=== PATIENT | female | born 1990 | race Caucasian/White ===

== ENCOUNTER → 2017-07-21 09:55 | Outpatient (REF) | payer SELFPAY ==
[2017-07-21 11:08] LABS: COTININE Drug Screen Negative (<200 ng/mL)
[2017-07-21 11:11] LABS: Color, Urine Yellow (Yellow); Glucose, Dipstick Normal (Normal); Ketone-Dipstick Negative (Negative); Leukocyte Esterase-Dipstick Negative /ul (Negative); Nitrite-Dipstick Negative (Negative); Occult Blood-Urine Negative /ul (Negative); Protein-Dipstick Negative (Negative); Specific Gravity, Urine 1.025 (1.002-1.030); Urine Bilirubin Dipstick Negative (Negative); Urine Clarity Sl. Cloudy (Clear); Urine Urobilinogen Normal (Normal)
[2017-07-21 11:14] LABS: Absolute Lymphocyte Count 4.26 X10^3/ul (0.83-4.51); Absolute Neutrophil Count 2.8 X10^3/uL (2.0-7.7); Basophil# 0.13 X10^3/uL; Basophil% 1.6 % (0-1); Eosinophil# 0.18 X10^3/uL; Eosinophils% 2.2 % (0-5); Hematocrit 38.5 % (37-47); Hemoglobin 12.7 g/dl (12.0-15.0); Lymphocyte # 4.26 X10^3/ul; Lymphocyte % 53.1 % (19-41); Mean Corpuscular Hgb 29.2 pg (27.0-32.0); Mean Corpuscular Volume 88.5 fL (81-99); Mean Platelet Vol. 9.6 fl (6.2-12.0); Monocyte# 0.65 X10^3/uL; Monocyte% 8.1 % (0-10); Neutrophil # 2.79 X10^3/uL (2.7-7.7); Neutrophil % 34.9 % (47-70); Platelet Count 202 K/mm3 (150-450); RBC Distribution Width CV 14.6 % (11.6-14.6); RBC Distribution Width SD 47.5 fl (35.1-43.9); Red Blood Count 4.35 M/mm3 (4.2-5.4)
[2017-07-21 11:19] LABS: ALB/GLOB Ratio 0.8 RATIO (0.9-2.4); AST(SGOT) 159 U/L (15-37); Alanine Aminotransfer ALT/SGPT 197 U/L (13-56); Albumin, Serum 3.3 g/dL (3.2-5.0); Alkaline Phosphatase 96 U/L (45-117); Anion Gap 7 (5-15); BUN 14 mg/dL (7-18); BUN/Creat Ratio 19.5 RATIO (10-20); Calcium,Total 8.8 mg/dL (8.5-10.1); Chloride 102 mmol/L (98-107); Cholesterol 224 mg/dL (200); Creatinine, Serum 0.72 mg/dL (0.55-1.02); EST Glomerular Filtration Rate 105 mL/min (>60); Est Glom Filt Rate - Afr Amer 128 mL/min (>60); Globulin 3.9 g/dL (2.2-4.2); Glucose 81 mg/dL (74-106); High Density Lipoprotein 86 mg/dL; LDH 362 U/L (84-246); Phosphorus 3.7 mg/dL (2.5-4.9); Potassium 4.1 mmol/L (3.5-5.1); Protein, Total 7.2 g/dL (6.4-8.2); Sodium Level 138 mmol/L (136-145); Triglycerides 154 mg/dL; Uric Acid 4.1 mg/dL (2.6-6.0); Very Low Density Lipoprotein 31 mg/dL (5-40)
[2017-07-23 14:49] LABS: Pathologist Review Reviewed
== END ==
LOC: LAB 09:55
PROVIDERS: Family Provider Family Medicine; PCP Family Medicine
DX: R69 Illness, unspecified (principal)
CPT/HCPCS: 80307

== ENCOUNTER → 2017-07-24 09:15 | Outpatient (CLI) | payer OTHER, SELFPAY ==
--- NOTE | 2017-07-24 09:19 | US_ITS ---
STUDY: ABDOMINAL ULTRASOUND - RIGHT UPPER QUADRANT REASON FOR VISIT: Female, 27 years old. Abnormal liver function tests. TECHNIQUE: Ultrasound evaluation of the right upper quadrant was performed with real-time and static eugene-scale imaging. TECHNICAL QUALITY: Adequate. COMPARISON: None. FINDINGS: Liver: The liver measures 13.6 cm. There is normal echogenicity of the liver. The bile ducts are within normal limits. There is hepatic color flow. The direction of portal flow is hepatopetal. There is no demonstrated mass lesion. Gallbladder: Normal distended gallbladder. The gallbladder wall measures 3.0 mm. There is a negative sonographic Gan's sign. There is no pericholecystic fluid. There are no gallstones. Common Bile Duct (C.B.D.): The common bile duct measures 2.0 mm. Pancreas: Normal size of the head, body and tail of the pancreas. There is normal echogenicity of the pancreas. There is no demonstrated pancreatic mass or cyst. Right Kidney: Normal size of the right kidney. The right kidney measures 12.3 cm x 5.5 cm x 4.1 cm. Normal renal cortex. The right cortex measures 1.2 cm. There is no demonstrated renal mass or cyst. There is no right hydronephrosis. US/Liver IMPRESSION: Normal right upper quadrant ultrasound examination. Electronically Signed: Pratik Berumen MD at 10:26 EST Tel [phone], Service support ,
[2017-07-25 09:55] LABS: HEPATITIS B SURFACE AG Negative (Negative); Hepatitis A AB, Total Positive (Negative); Hepatitis A IgM Antibody Negative (Negative); Hepatitis B Core AB IgM Negative (Negative); Hepatitis B Core Ab Total Negative (Negative); Hepatitis C Ab 0.9 s/co ratio (0.0-0.9)
[2017-07-25 15:57] LABS: Hep B Surface Antibodies Non Reactive (.)
== END ==
PROVIDERS: Family Provider Family Medicine; PCP Family Medicine; Visit Provider Obstetrics & Gynecology
DX: R74.8 Abnormal levels of other serum enzymes (principal)
CPT/HCPCS: 36415; 76705; 86704; 86705; 86706; 86708; 86709; 86803; 87340

== ENCOUNTER → 2017-07-30 17:14 | Outpatient (CLI) | payer OTHER, SELFPAY ==
[2017-07-30 22:33] LABS: Chlamydia Trachomatis by PCR Negative (Negative); Neisserai gonorrhoeae by PCR Negative (Negative); Probe Check PASS; Sample Adequacy Control PASS; Specimen Processing Control PASS
[2017-08-07 10:00] LABS: HPV Reflexed? NOT INDICATED
== END ==
LOC: LAB 10:30 → LABSPEC 17:15
PROVIDERS: Family Provider Family Medicine; PCP Family Medicine; Visit Provider Obstetrics & Gynecology
DX: Z12.4 Encounter for screening for malignant neoplasm of cervix (principal); Z11.3 Encounter for screening for infections with a predominantly sexual mode of transmission
CPT/HCPCS: 87491; 87591; 88175; G0145

== ENCOUNTER → 2017-07-31 11:26 | Outpatient (CLI) | payer OTHER, SELFPAY ==
[2017-08-02 03:06] LABS: HCV Quant. RNA PCR HCV Not Detected IU/mL (.)
[2017-08-02 08:53] LABS: HEPATITIS B SURFACE AG Negative (Negative); HSV 1 IgG 0.95 index (0.00-0.90); HSV 2 IgG < 0.91 index (0.00-0.90)
[2017-08-07 02:54] LABS: Rapid Plasmin Reagin (RPR) NONREACTIVE (NONREACTIVE)
== END ==
PROVIDERS: Family Provider Family Medicine; PCP Family Medicine; Visit Provider Obstetrics & Gynecology
DX: Z11.3 Encounter for screening for infections with a predominantly sexual mode of transmission (principal)
CPT/HCPCS: 36415; 86592; 86695; 86696; 87340; 87522

== ENCOUNTER 2018-04-27 11:15 | Outpatient (RCR) | payer OTHER, SELFPAY ==
--- NOTE | 2018-05-25 16:33 | DS.PCM_ITS ---
Massage Therapy Discharge Summary: Initial Evaluation: 09/01/2017 Diagnosis: Back pain No. of Visits: Date of last visit: 04/27/2018 Goals: Decreased pain and muscle tension This patient is being discharged from our care at the [facility]. Thank you, Ana Savage LMT
== END 2018-04-27 19:00 | disposition home or self-care (01) ==
LOC: MASS 11:15
PROVIDERS: Family Provider Family Medicine; PCP Family Medicine; Visit Provider Family Medicine
DX: M54.9 Dorsalgia, unspecified (principal)
CPT/HCPCS: 97124

== ENCOUNTER → 2018-08-02 14:19 | Outpatient (CLI) | payer OTHER, SELFPAY ==
[2018-08-02 13:46] VITALS: BMI 24.0
[2018-08-02 15:53] LABS: HIV - WCH Non-Reactive (Nonreactive)
[2018-08-02 20:04] LABS: Chlamydia Trachomatis by PCR Negative (Negative); Neisserai gonorrhoeae by PCR Negative (Negative)
[2018-08-02 20:05] LABS: Probe Check PASS; Sample Adequacy Control PASS; Specimen Processing Control PASS
[2018-08-04 03:06] LABS: HCV Quant. RNA PCR HCV Not Detected IU/mL (.)
[2018-08-04 12:19] LABS: HEPATITIS B SURFACE AG Negative (Negative); HSV 1 IgG < 0.91 index (0.00-0.90); HSV 2 IgG < 0.91 index (0.00-0.90)
[2018-08-06 03:11] LABS: Rapid Plasmin Reagin (RPR) NONREACTIVE (NONREACTIVE)
== END ==
PROVIDERS: Family Provider Family Medicine; PCP Family Medicine; Referring Provider Obstetrics & Gynecology; Visit Provider Obstetrics & Gynecology
DX: Z11.3 Encounter for screening for infections with a predominantly sexual mode of transmission (principal)
CPT/HCPCS: 36415; 86592; 86695; 86696; 86703; 87340; 87491; 87522; 87591

== ENCOUNTER 2019-04-21 10:15 | Outpatient (RCR) | payer OTHER, SELFPAY ==
--- NOTE | 2018-06-21 15:08 | MASS.EVAL ---
Massage Therapy Evaluation: Initial Evaluation Date: 06/21/2018 SUBJECTIVE: Lexus is a 27 year old female who was referred to the [facility] facility for a massotherapy evaluation by Dr. Baker with the diagnosis of back pain. Lexus presents today with the symptoms of tension and pain in her mid-low back. She also complains of burning between her scapulae and neck stiffness. Lexus reports having a non-remarkable medical history. She reports having minimal change in her symptoms after stretching and strengthening. OBJECTIVE: Upon observation Lexus has poor posture in sitting and standing. After examination and palpation I found Lexus to have very high muscle tension with tenderness and myofascial restrictions in her sub occipitals, levator scapulae, trapezius, rhomboids, scalenes, and thoracic paraspinals. Her QL?s, lumbar paraspinals, glute medius and minimus all were very tight with fascial restrictions, tender points and trigger points. The first treatment consisted of a one hour massage to her upper body with myofascial release, muscle stripping, trigger point compression techniques, and cervical manual traction. ASSESSMENT: I feel that Lexus is a good candidate for massotherapy at this time. She had a favorable response to the first treatment with reduction in her muscle aches, pain and tension. She also had improvement in her cervical flexibility and low back flexibility. PLAN: The plan of care was reviewed with the patient. The patient is to be seen on an as needed basis for a total of ten sessions with the recommendation of once every month for a one hour treatment.
--- NOTE | 2019-04-21 12:59 | MASS.DISCH ---
Massage Therapy Discharge Summary: Discharge Date: 04/21/2019 Lexus was seen for a massotherapy evaluation on 06/21/2018 with the diagnosis of back pain. She was treated with ten sessions of massage therapy consisting of deep pressure soft tissue techniques, myofascial release and trigger point compression to her cervical, thoracic, lower back, upper extremities, hips and lower extremities. Lexus responded well to the therapy by reporting decreased tension and pain throughout her head, neck, shoulders, lower back and hips. Her goals for therapy were met throughout the treatment sessions. At this time this patient is being discharged from our care at [facility] facility.
== END 2019-04-21 19:00 | disposition home or self-care (01) ==
LOC: MASS 10:15
PROVIDERS: Family Provider Family Medicine; PCP Family Medicine; Referring Provider Family Medicine; Visit Provider Family Medicine
DX: M54.9 Dorsalgia, unspecified (principal)
CPT/HCPCS: 97124

== ENCOUNTER → 2019-06-30 10:07 | Outpatient (CLI) | payer OTHER, SELFPAY ==
[2019-06-30 10:03] VITALS: BMI 23.6
[2019-06-30 10:33] LABS: Absolute Lymphocyte Count 1.55 X10^3/uL (0.83-4.51); Basophil# 0.02 X10^3/uL; Basophil% 0.3 % (0-1); Eosinophil# 0.03 X10^3/uL; Eosinophils% 0.5 % (0-5); Hematocrit 40.1 % (37-47); Hemoglobin 13.3 g/dL (12.0-15.0); Lymphocyte # 1.55 X10^3/ul (4.0); Lymphocyte % 25.4 % (19-41); Mean Corp Hgb Conc 33.2 g/dL (32-36); Mean Corpuscular Hgb 28.5 pg (27.0-32.0); Mean Corpuscular Volume 85.9 fL (81-99); Mean Platelet Vol. 9.9 fl (6.2-12.0); Monocyte# 0.52 X10^3/uL; Monocyte% 8.5 % (0-10); NRBC Flagged by Analyzer 0 % (0-5); Neutrophil # 3.95 X10^3/uL (2.7-7.7); Neutrophil % 64.8 % (47-70); Platelet Count 207 K/mm3 (150-450); RBC Distribution Width CV 13.1 % (11.6-14.6); RBC Distribution Width SD 40.9 fl (35.1-43.9); Red Blood Count 4.67 M/mm3 (4.2-5.4); White Blood Count 6.1 K/mm3 (4.4-11.0)
[2019-06-30 11:39] LABS: HIV - WCH Non-Reactive (Nonreactive); Hepatitis B Surface Antigen Non-Reactive (Nonreactive); Hepatitis C Antibody Non-Reactive (Nonreactive); Rubella IgG 179.8 IU/mL
[2019-06-30 13:41] LABS: Amphetamine Urine VISTA NEGATIVE (<1000 ng/mL); Barbiturate Urine VISTA NEGATIVE (< 200 ng/mL); Benzodiazepine Urine VISTA NEGATIVE (< 200 ng/mL); Cocaine Urine VISTA NEGATIVE (< 300 ng/mL); Ecstacy Urine VISTA NEGATIVE (< 500 ng/mL); Methadone Urine VISTA NEGATIVE (< 300 ng/mL); PCP Urine VISTA NEGATIVE (< 25 ng/mL); THC Urine VISTA NEGATIVE (< 50 ng/mL); Vista UDS pH Range 6
[2019-06-30 16:22] LABS: Chlamydia Trachomatis by PCR Negative (Negative); Neisserai gonorrhoeae by PCR Negative (Negative); Probe Check PASS; Sample Adequacy Control PASS; Specimen Processing Control PASS
[2019-07-07 03:15] LABS: Rapid Plasmin Reagin (RPR) NONREACTIVE (NONREACTIVE)
== END ==
PROVIDERS: PCP Family Medicine; Referring Provider Obstetrics & Gynecology; Visit Provider Obstetrics & Gynecology
DX: Z34.00 Encounter for supervision of normal first pregnancy, unspecified trimester (principal)
CPT/HCPCS: 36415; 80307; 85025; 86592; 86703; 86762; 86803; 86850; 86900; 86901; 87086; 87340; 87491; 87591

== ENCOUNTER → 2019-09-06 | Outpatient (CLI) | payer OTHER, SELFPAY ==
[2019-07-29 14:42] VITALS: BMI 23.6
[2019-08-26 09:57] VITALS: BMI 23.6
--- NOTE | 2019-09-06 07:56 | US_ITS ---
STUDY: SECOND AND THIRD TRIMESTER OBSTETRICAL ULTRASOUND REASON FOR EXAM: Female, 29 years old ANATOMY LMP: April 24, 2019. TECHNIQUE: Transabdominal TECHNICAL QUALITY: Adequate. PRIOR ULTRASOUND: None. FINDINGS: There is a single intrauterine fetus. The fetus is in a breech presentation. There is demonstrated cardiac activity with a heart rate of 160 bpm. There is a normal amniotic fluid volume. The largest amniotic fluid pocket measures 4.1 cm x 6.9 cm. The amniotic fluid index (CHANDRA) is within normal limits. The placenta is anterior in location and is not low lying. There are Grade 1 placental changes. The cervix measures 5.8 cm in length. The adnexal regions are not visualized. BIOMETRY: BPD: 4.33 cm: 19 weeks, 0 days HC: 16.42 cm: 19 weeks, 1 days AC: 14.12 cm: 19 weeks, 3 days FL: 3.05 cm: 19 weeks, 3 days CI: 77.5% FL/BPD: 70.5% FL/HC: FL/AC: 21.6% HC/AC: 1.16 age by current US: 19 weeks, 1 days. LEONARDA by current US: January 30, 2020. Estimated weight: 22 grams, +/- 43 grams, 53 %. Age by LMP: 19 weeks, 2 days. LEONARDA by LMP: January 29, 2020. ANATOMY: Gender: Female Cranium: Normal lateral ventricles. Normal choroid plexus. Normal cerebellum. Normal cisterna magna. Normal face, nose and lips. Chest: Normal 4-chamber heart. Abdomen/Pelvis: Normal diaphragm. Normal stomach. Normal abdominal wall. Normal cord insertion. Normal 3 vessel cord. Normal kidneys. Normal bladder. Spine: Normal cervical spine. Normal thoracic spine. Normal lumbar spine. Normal sacrum. Extremities: Normal bilateral upper extremities. Normal bilateral lower extremities. US/OB Anatomy Scan IMPRESSION: Single live intrauterine gestation with a mean gestational age of 19 weeks and 1 day. Electronically Signed: Pratik Berumen, at 13:08 EDT , Service support ,
== END | disposition home or self-care (01) ==
LOC: OPUS 07:56
PROVIDERS: PCP Family Medicine; Referring Provider Obstetrics & Gynecology; Visit Provider Obstetrics & Gynecology
DX: Z36.89 Encounter for other specified antenatal screening (principal)
CPT/HCPCS: 76805

== ENCOUNTER → 2019-10-27 12:52 | Outpatient (CLI) | payer OTHER, SELFPAY ==
[2019-10-14 10:18] VITALS: BMI 23.6
[2019-10-27 13:28] LABS: Absolute Lymphocyte Count 2.04 X10^3/uL (0.83-4.51); Absolute Neutrophil Count 5.4 X10^3/uL (2.0-7.7); Basophil# 0.04 X10^3/uL; Basophil% 0.5 % (0-1); Eosinophil# 0.08 X10^3/uL; Eosinophils% 0.9 % (0-5); Hematocrit 36.6 % (37-47); Hemoglobin 11.8 g/dL (12.0-15.0); Lymphocyte # 2.04 X10^3/ul (4.0); Lymphocyte % 24.1 % (19-41); Mean Corp Hgb Conc 32.2 g/dL (32-36); Mean Corpuscular Hgb 29.4 pg (27.0-32.0); Mean Corpuscular Volume 91.3 fL (81-99); Mean Platelet Vol. 9.8 fl (6.2-12.0); Monocyte% 9.5 % (0-10); NRBC Flagged by Analyzer 0 % (0-5); Neutrophil # 5.42 X10^3/uL (2.7-7.7); Neutrophil % 64.2 % (47-70); Platelet Count 196 K/mm3 (150-450); RBC Distribution Width CV 12.8 % (11.6-14.6); RBC Distribution Width SD 42.5 fl (35.1-43.9); Red Blood Count 4.01 M/mm3 (4.2-5.4); White Blood Count 8.5 K/mm3 (4.4-11.0)
[2019-10-27 13:42] LABS: Glucose Challenge Gest 1H 50g 84 mg/dL (70-140)
== END ==
PROVIDERS: PCP Family Medicine; Referring Provider Obstetrics & Gynecology; Visit Provider Obstetrics & Gynecology
DX: Z34.00 Encounter for supervision of normal first pregnancy, unspecified trimester (principal)
CPT/HCPCS: 36415; 82950; 85025; 86850; 86900; 86901

== ENCOUNTER → 2019-12-06 | Outpatient (CLI) | payer OTHER, SELFPAY ==
[2019-12-06 12:39] VITALS: BMI 23.6
--- NOTE | 2019-12-06 13:23 | RAD_ITS ---
STUDY: X-RAY - LEFT ANKLE REASON FOR EXAM: Follow-up fracture status post injury. TECHNIQUE: 3 view(s) of the ankle. COMPARISON: None. FINDINGS: There is a minimally displaced fracture of the distal fibula. Normal tibiotalar articulation and ankle mortise. Normal visualized talus and calcaneus. The visualized subtalar, talonavicular, calcaneocuboid and tarsal articulations are normal. There is an overlying cast. RAD/Ankle min 3 Views IMPRESSION: Distal fibular fracture. Electronically Signed: Carlos Shields MD at 14:15 EDT Tel , Service support ,
== END | disposition home or self-care (01) ==
LOC: HPRAD 13:23
PROVIDERS: PCP Family Medicine; Referring Provider Orthopaedic Surgery; Visit Provider Orthopaedic Surgery
DX: S82.832A Other fracture of upper and lower end of left fibula, initial encounter for closed fracture (principal)
CPT/HCPCS: 73610

== ENCOUNTER → 2019-12-15 | Outpatient (CLI) | payer OTHER, SELFPAY ==
[2019-12-06 12:39] VITALS: BMI 23.6
--- NOTE | 2019-12-15 14:56 | RAD_ITS ---
STUDY: X-RAY - LEFT ANKLE REASON FOR EXAM: Female, 29 years old. INJURY, LEFT ANKLE PAIN TECHNIQUE: 3 view(s) of the ankle. COMPARISON: 12/06/2019 FINDINGS: No change in the nondisplaced oblique fracture of the distal left fibula at the level tibial plafond. Normal medial and lateral malleoli. Normal tibiotalar articulation and ankle mortise. Normal visualized talus and calcaneus. The visualized subtalar, talonavicular, calcaneocuboid and tarsal articulations are normal. Fiberglas cast a posterior soft tissue and bony detail. RAD/Ankle min 3 Views IMPRESSION: No change in nondisplaced oblique fracture the distal fibula at the level tibial plafond. Electronically Signed: Juni Izaguirre MD at 7:44 EDT Tel , Service support ,
== END | disposition home or self-care (01) ==
LOC: HPRAD 14:56
PROVIDERS: PCP Family Medicine; Referring Provider Orthopaedic Surgery; Visit Provider Orthopaedic Surgery
DX: S82.832A Other fracture of upper and lower end of left fibula, initial encounter for closed fracture (principal)
CPT/HCPCS: 73610

== ENCOUNTER → 2019-12-27 | Outpatient (CLI) | payer OTHER, SELFPAY ==
[2019-12-16 09:29] VITALS: BMI 23.6
--- NOTE | 2019-12-27 09:37 | RAD_ITS ---
STUDY: X-RAY - LEFT ANKLE REASON FOR EXAM: Female, 29 years old. Persistent pain, known fracture TECHNIQUE: 3 view(s) of the ankle. COMPARISON: None. FINDINGS: No change in the nondisplaced oblique fracture of the distal left fibula at the level tibial plafond. Normal medial and lateral malleoli. Normal tibiotalar articulation and ankle mortise. Normal visualized talus and calcaneus. The visualized subtalar, talonavicular, calcaneocuboid and tarsal articulations are normal. Fiberglas cast a posterior soft tissue and bony detail. RAD/Ankle min 3 Views IMPRESSION: No change in nondisplaced oblique fracture the distal fibula at the level tibial plafond. Electronically Signed: Toro Malhotra MD at 10:08 EDT , Service support ,
== END | disposition home or self-care (01) ==
LOC: HPRAD 09:37
PROVIDERS: PCP Family Medicine; Referring Provider Physician Assistant; Visit Provider Physician Assistant
DX: S82.832A Other fracture of upper and lower end of left fibula, initial encounter for closed fracture (principal)
CPT/HCPCS: 73610

== ENCOUNTER → 2020-01-05 | Outpatient (CLI) | payer OTHER, SELFPAY ==
[2020-01-05 13:10] VITALS: BMI 23.6
== END | disposition home or self-care (01) ==
LOC: LABSPEC 16:59
PROVIDERS: PCP Family Medicine; Referring Provider Obstetrics & Gynecology; Visit Provider Obstetrics & Gynecology
DX: Z34.00 Encounter for supervision of normal first pregnancy, unspecified trimester (principal)
CPT/HCPCS: 87077; 87081; 87186

== ENCOUNTER → 2020-01-13 13:20 | Outpatient (CLI) | payer OTHER, SELFPAY ==
[2020-01-13 13:16] VITALS: BMI 23.6
--- NOTE | 2020-01-13 13:21 | RAD_ITS ---
STUDY: X-RAY - LEFT ANKLE REASON FOR EXAM: Female, 29 years old. FRACTURE TECHNIQUE: 3 view(s) of the ankle. COMPARISON: Comparison is made with prior examination dated 12/27/2019. FINDINGS: Healing fracture of the distal fibula at the level of the tibial plafond. Normal medial and lateral malleoli. Normal tibiotalar articulation and ankle mortise. Normal visualized talus and calcaneus. The visualized subtalar, talonavicular, calcaneocuboid and tarsal articulations are normal. The soft tissue structures are unremarkable. RAD/Ankle min 3 Views IMPRESSION: Healing nondisplaced oblique fracture of the distal left fibula. Positioning is maintained. Electronically Signed: Pratik Berumen, at 15:33 EDT , Service support ,
== END ==
PROVIDERS: PCP Family Medicine; Referring Provider Physician Assistant; Visit Provider Physician Assistant
DX: S82.832A Other fracture of upper and lower end of left fibula, initial encounter for closed fracture (principal); X58.XXXA Exposure to other specified factors, initial encounter; Y93.9 Activity, unspecified; Y92.9 Unspecified place or not applicable; Y99.9 Unspecified external cause status
CPT/HCPCS: 73610

== ENCOUNTER 2020-01-24 18:00 | Inpatient (IN) | payer OTHER, SELFPAY ==
[2019-10-14 10:18] VITALS: BMI 23.6
[2020-01-20 15:44] VITALS: BMI 23.6
[2020-01-24] VITALS (13 sets, daily range): BP systolic 127–138; BP diastolic 75–89; PULSE 78–110; TEMP 36.3–37; O2SAT 96–99; BMI 28.5
[2020-01-24 17:51] LABS: ROM Internal Control Test YES-OK TO RESULT pt. (Internal QC)
[2020-01-24 17:52] LABS: ROM Patient Test POSITIVE (Negative)
[2020-01-24] MEDS: Lactated Ringers 1,000 ML 50 ML IV (18:50)
--- NOTE | 2020-01-24 18:54 | HP.PCM_ITS ---
- Problem List (1) Rupture of membranes with clear amniotic fluid Status: Acute (2) Positive GBS test Status: Acute Comment: plan PCN in labor (3) Supervision of normal first Status: Acute Qualifiers: Trimester: second trimester Qualified Code(s): Z34.02 - Encounter for supervision of normal first , second trimester Comment: PRR LEONARDA 01/29/2020 mary alice Mcgee ([facility]) (4) Status: Acute Qualifiers: Weeks of gestation: 33 weeks Qualified Code(s): Z3A.33 - 33 weeks gestation of Comment: declined genetic, ntd, and carrier testing. Normal anatomy. Covid testing negative History Date of Admission: 01/24/20 Final LEONARDA: 01/29/20 Final LEONARDA Source: LMP Gestational age: 39 Weeks and 2 Days History of this : This is a 29 year-old, G1, P0, at 30 weeks gestational age presented with leakage of fluid. Reports trickles of fluid since Thursday. ROM plus positive in triage, but forebag palpable. Denies regular contractions, VB, DFM. Surgical History: Surgical History (Last Reviewed 01/20/20 @ 15:44 by Daniella Jacobo) No significant past surgical history Allergies No Known Allergies Allergy (Verified 01/20/20 15:43) Home Medications: Home Medications ferrous sulfate 325 mg (65 mg iron) tablet 325 mg PO TID tab 07/30/17 docusate sodium 100 mg capsule 100 mg PO DAILY 06/30/19 vitamin#30 30 mg iron-10 mg iron-folic acid 1 mg-omg3 capsule 1 cap PO DAILY 11/04/19 Smoking Status: Never smoker Alcohol: None Number of Fetus(es): 1 NST - FHR Rate Baby A Baseline: 140 Variability:: Moderate Accelerations:: 15 x 15 Decelerations:: None NST Reactive:: Yes FHR Category:: Category I Uterine Activity:: irritability History Past Pregnancies: Past Pregnancies G1 Labs: Mom's Labs & Results 01/24/20 17:05 Vag Amniotic Fld Detect POSITIVE H Social History Smoking Status Never smoker Mom's Problem List Problem Status Onset Code Rupture of membranes with clear amniotic fluid Acute Mom's Labs & Results 01/24/20 01/24/20 01/24/20 17:05 18:50 18:50 WBC 11.2 H RBC 4.50 Hgb 13.0 Hct 39.9 MCV 88.7 MCH 28.9 MCHC 32.6 RDW Std Deviation 42.5 RDW Coeff of Alisha 13.2 Plt Count 254 MPV 9.8 Immature Gran % (Auto) 0.800 Neut % (Auto) 66.5 Lymph % (Auto) 23.6 [place] % (Auto) 8.3 Eos % (Auto) 0.4 Baso % (Auto) 0.4 Absolute Neuts (auto) 7.4 Absolute Lymphs (auto) 2.63 Nucleated RBC % 0 Vag Amniotic Fld Detect POSITIVE H Blood Type O POSITIVE Antibody Screen NEGATIVE Course Did the patient receive Yes care? Labs Blood Type: O RH: POSITIVE RPR/VDRL/Syphilis Nonreactive Rubella status Immune HbSAg Negative Date Done: 06/30/19 Chlamydia Negative Gonorrhea Negative HIV/AIDS Non-Reactive Group B Strep: Positive Current Obstetrical History Gestational Diabetes No Incompetent Cervix No Infertility No IUGR No Macrosomia No Hypertension/Pre-eclampsia No Placenta Previa/Abruption No PTL/PROM No Uterine anomaly No Oligohydramnios No Polyhydramnios No Multiple gestation No Past Medical History Asthma No Diabetes No Hypertension No Heart disease No Mitral valve prolapse No Neurologic/Seizure disorder/ No Migraines Kidney disease No Liver disease No Varicosities No Clotting disorders/Hx of DVT No Thyroid Dysfunction No Other medical diseases No Psychiatric disorders No Major trauma No Abnormal PAP smear No Sleep apnea No Mammogram in the last 2 years No Social History Marital Status: SINGLE Alleged father Everardo Hx Smoking No Smoking Status Never smoker How long have you used n/a substances (years)? Expected Delivery Method: Spontaneous Vaginal Describe any other labor & delivery plans:: Labor Preferences-. labor support person: Everardo. pain management options preferred: limited intervention. cut cord/dad catch: yes. : yes. PP control planned: progestin only pill. special requests: none. Specific Issue/Plans. flu vaccine: given. tdap vaccine: given. rhogam: na. LARC form signed: yes Review of Systems Constitutional: Denies: Chills, Fever HEENT: Denies: Head Aches Cardiovascular: Denies: Chest Pain, Palpitations Respiratory: Denies: Cough, Shortness of breath at rest, Sputum production Gastrointestinal: Denies: Abdominal Pain, Nausea, Vomiting Genitourinary: Denies: Dysuria Gynecological: Reports: Vaginal discharge - Leakage of clear fluid. Denies: Vaginal bleeding Neurological: Denies: Slurred speech, Confusion Psychiatric: Denies: Anxiety, Depression Physical Exam Vitals: Vital Signs Temp Pulse Ox 98.1 F 98 01/24/20 17:40 01/24/20 17:40 General: Alert, Oriented x3, No apparent distress HEENT: Atraumatic, PERRLA, EOMI, Normocephalic Cardiovascular: Regular rate Lungs: Normal air movement, No rhonchi, No wheeze Abdomen: Soft, Non Tender, Non-Distended, Gravid, Appropriate for Gestational Age Neurological: Cranial nerves II-XII grossly intact, Neuro grossly intact [employer] FURNACE: Normal external genitalia. Negative for: Vulvar lesions Estimated gestational size: Appropriate for gestational size Presentation: Cephalic Cervix Dilation (cm): 2 Station: -2 Effacement (%): 80 Assessment/Plan All Active Problems (Last Reviewed 01/20/20 @ 15:44 by Daniella Jacobo) Rupture of membranes with clear amniotic fluid (Acute) Positive GBS test (Acute) Supervision of normal first (Acute) (Acute) Elevated liver enzymes (Resolved) This is a 29 year-old, G1, P0, at weeks 39 gestational age admitted for rupture of membranes - GBS positive - PCN ordered - O positive - Rubella immune - Cephalic by Ashok'stuart and exam - AROM of forebag performed on admission. Will allow time to see if begins naseem then discuss starting pitocin - Desires natural labor - COVID test negative
[2020-01-24 19:07] LABS: Absolute Lymphocyte Count 2.63 X10^3/uL (0.83-4.51); Absolute Neutrophil Count 7.4 X10^3/uL (2.0-7.7); Basophil# 0.04 X10^3/uL; Basophil% 0.4 % (0-1); Eosinophil# 0.04 X10^3/uL; Eosinophils% 0.4 % (0-5); Hematocrit 39.9 % (37-47); Lymphocyte # 2.63 X10^3/ul (4.0); Lymphocyte % 23.6 % (19-41); Mean Corp Hgb Conc 32.6 g/dL (32-36); Mean Corpuscular Hgb 28.9 pg (27.0-32.0); Mean Corpuscular Volume 88.7 fL (81-99); Mean Platelet Vol. 9.8 fl (6.2-12.0); Monocyte# 0.93 X10^3/uL; Monocyte% 8.3 % (0-10); NRBC Flagged by Analyzer 0 % (0-5); Neutrophil # 7.43 X10^3/uL (2.7-7.7); Neutrophil % 66.5 % (47-70); Platelet Count 254 K/mm3 (150-450); RBC Distribution Width CV 13.2 % (11.6-14.6); RBC Distribution Width SD 42.5 fl (35.1-43.9); White Blood Count 11.2 K/mm3 (4.4-11.0)
[2020-01-24] MEDS: Lactated Ringers 500 ML 999 ML IV (22:12)
[2020-01-24] MEDS: Oxytocin 30 units/NS 500 ml 30 UNITS/500 ML IV.SOLN 334 UNITS IV (22:57)
--- NOTE | 2020-01-24 23:07 | OP.PCM_ITS ---
<Linh Clarke - Last Filed: 01/24/20 23:15> Problem List (1) Rupture of membranes with clear amniotic fluid Status: Acute (2) Positive GBS test Status: Acute Comment: plan PCN in labor (3) Supervision of normal first Status: Acute Qualifiers: Trimester: second trimester Qualified Code(s): Z34.02 - Encounter for supervision of normal first , second trimester Comment: PRR LEONARDA 01/29/2020 mary alice Mcgee ([facility]) (4) Status: Acute Qualifiers: Weeks of gestation: 33 weeks Qualified Code(s): Z3A.33 - 33 weeks gestation of Comment: declined genetic, ntd, and carrier testing. Normal anatomy. Covid testing negative Vaginal Delivery Maternal Presentation: Active Labor Patient is a 29-year-old G1, P0 at 39 weeks gestation who presented with rupture of membranes. She made rapid change to complete without augmentation. Amniotic Membrane Rupture Type: Spontaneous Amniotic Fluid Description: Clear Final LEONARDA: 01/29/20 Final LEONARDA Source: LMP Gestational age: 39 Weeks and 2 Days Date of Procedure: 01/24/20 Pre-Operative Diagnosis: Active labor Post-Operative Diagnosis: Same Surgery/ Procedure Performed: Spontaneous Vaginal Delivery Type of Anesthesia: Local with 1% lidocaine Multi Select Codes - Urinary/Genital Urinary/Genital CPT Codes: 31249 Vaginal Delivery global pkg <[employer] - Last Filed: 01/24/20 23:22> Vaginal Delivery Description of Procedure: Patient began pushing and delivered the head in the [ALEJANDRINA] presentation. The head was delivered atraumatically. The anterior and posterior shoulders delivered without complication followed by the rest of the and the was placed on the maternal abdomen with dad eating in placing the infant on the abdomen and spontaneous rupture of the cord occurred due to an extremely short cord. The proximal portion was immediately clamped with a cord clamp and minimal spillage was noted. gentle traction was applied to the cord and the placenta delivered spontaneously immediately following it was noted to be intact with three-vessel cord. The perineum and vagina were inspected and injected with 1% lidocaine the right vaginal wall was noted to have a first- degree vaginal laceration that was repaired with 3-0 Vicryl rapide. EBL was 200. Patient and infant tolerated delivery well. Presentation: ALEJANDRINA Placental Delivery Description: Spontaneous Placenta Disposition: [facility] Cord Vessel Description: 3 Vessels Cord Entanglement: None Estimated Blood Loss: 200 Infant A gender: Female Episiotomy Description: None Laceration: Vaginal Extension/lac, 1st degree Medications given after delivery: IV Pitocin Complications: None
--- NOTE | 2020-01-24 23:20 | DCINST_ITS ---
Discharge Diet: No Restrictions Discharge Activity: Return to Normal Activity, May not drive while taking narcotic pain medications., May Shower May resume sexual activity in: 4-6 weeks Additional Activity Instructions:: Nothing in the vagina for 4-6 weeks. You may return to work/school in 6 weeks. Call your doctor if your incision/area has: Continuous Slow Oozing, Sudden Increased Bleeding, Increased Pain/ Swelling, Increased Redness, Foul Smelling Discharge Additional Instructions: If you experience any of the following, contact your healthcare provider. * Bleeding that soaks a pad every hour for 2 hours * Fever 100.4 or higher * Unrelieved incision or abdominal pain * Swelling, redness, discharge or bleeding from your incision or episiotomy site * Your incision begins to separate * Problems urinating (including inability to urinate or burning while urinating). * Visual changes * Severe headache * Flu-like symptoms * Pain or redness in one of both of your breasts * Pain, warmth, tenderness or swelling in your legs, especially the calf area * Frequent nausea and vomiting * Symptoms of depression or anxiety If you experience any of the following, call 911 or go to the nearest Emergency Room. * Chest pain * Problems breathing * Seizure activity * Partial or complete paralysis of a body part, slurred speech, weakness or drooping of the face, or a sudden inability to walk or hold your balance Allergies/Adverse Reactions: Allergies No Known Allergies Allergy (Verified 01/24/20 19:43) Medications to take at Discharge ferrous sulfate 325 mg (65 mg iron) tablet 325 mg PO TID tab 07/30/17 docusate sodium 100 mg capsule 100 mg PO DAILY 06/30/19 vitamin#30 30 mg iron-10 mg iron-folic acid 1 mg-omg3 capsule 1 cap PO DAILY 11/04/19 When: Call to make an appointment with your doctor in 6 weeks. If you had elevated Blood Pressure or 4th degree laceration you will need to be seen in 2 weeks. Primary Care Physician: Nahum Elder MD [Primary Care Provider] - Test Results: Test results from this visit will be discussed in further detail at your follow- up appointment, if applicable.
[2020-01-25] VITALS (14 sets, daily range): BP systolic 105–139; BP diastolic 57–85; PULSE 75–88; RESP 16; TEMP 36.5–36.9; O2SAT 95–97
[2020-01-25] MEDS: 0.9% Saline Lock 10 ML Syringe IV (01:47)
--- NOTE | 2020-01-25 07:52 | PN.OBGYN_ITS ---
Patient Problems: Active and Suspected Problems (Last Reviewed 01/20/20 @ 15:44 by Daniella Jacobo) Rupture of membranes with clear amniotic fluid (Acute) Subjective: Patient doing well without complaints. Tolerating PO. Ambulating and voiding without difficulty. + passing gas.Breast feeding without difficulty. Denies chest pain, shortness of breath, calf pain/swelling, fevers, chills, lightheadedness. - Physical Exam Vitals/I&O's: Vital Signs Temp Pulse Resp BP Pulse Ox 97.9 F 88 16 112/64 95 01/25/20 03:17 01/25/20 03:18 01/25/20 03:17 01/25/20 03:18 01/25/20 00:45 Oxygen Delivery Method Room Air Weight: 199 lb Body Mass Index (BMI) 28.5 Intake and Output for Last 24 Hours 01/23/20 01/24/20 01/25/20 23:59 23:59 23:59 Intake Total 904.50 / 904.50 833 / 833 Output Total 400 / 400 Balance 904.50 / 904.50 433 / 433 General: Alert, Oriented x3 Abdomen: Soft, Non Tender, Non-Distended, - - FF below U. Laboratory Results 01/24/20 17:05: Vag Amniotic Fld Detect POSITIVE H 01/24/20 18:50: WBC 11.2 H, RBC 4.50, Hgb 13.0, Hct 39.9, MCV 88.7, MCH 28.9, MCHC 32.6, RDW Std Deviation 42.5, RDW Coeff of Alisha 13.2, Plt Count 254, MPV 9.8, Immature Gran % (Auto) 0.800, Neut % (Auto) 66.5, Lymph % (Auto) 23.6, [place] % (Auto) 8.3, Eos % (Auto) 0.4, Baso % (Auto) 0.4, Absolute Neuts (auto) 7.4, Absolute Lymphs (auto) 2.63, Nucleated RBC % 0 01/24/20 18:50: Blood Type O POSITIVE, Antibody Screen NEGATIVE Current Medications Acetaminophen (Tylenol) 1,000 mg PO Q8H PRN PRN PRN Reason: Pain Score 1-3/10 Bisacodyl (Dulcolax) 10 mg RECTAL UD PRN PRN Reason: If no BM Dibucaine (Dibucaine) 1 applic TOPICAL TID PRN PRN; Protocol PRN Reason: Discomfort Docusate Sodium (Colace) 100 mg PO DAILY MAIK Ferrous Sulfate (Ferrous Sulfate) 325 mg PO TIDCM MAIK Hydrocortisone (Hytone) 1 applic TOPICAL TID PRN PRN; Protocol PRN Reason: Discomfort Methylergonovine Maleate (Methergine) 0.2 mg IM X1 PRN PRN Reason: Excess bleeding/uterine atony Naproxen (Naprosyn) 500 mg PO Q8H PRN PRN PRN Reason: Pain Score 1-3/10 Last Admin: 01/25/20 00:00 Dose: 500 mg Documented by: Ondansetron HCl (Zofran) 4 mg IV Q4H PRN PRN PRN Reason: Nausea Oxycodone HCl (Oxyir) 5 - 10 mg PO Q4H PRN PRN PRN Reason: Pain Score 4-10/10 Multivit/Folic Acid/Iron (Prenatabs Fa) 1 tablet PO DAILY@1200 MAIK Senna/Docusate Sodium (Senokot-S, Deborah-Colace) 1 - 2 tablet PO DAILY PRN PRN PRN Reason: Constipation Simethicone (Mylicon) 80 mg PO PCHS PRN PRN Reason: Indigestion/Stomach pain Sodium Chloride () 5 - 15 ml IV UD PRN PRN Reason: SALINE FLUSH Last Admin: 01/25/20 01:47 Dose: 10 ml Documented by: Medical Necessity - Tobacco Use Smoking Status: Never smoker Assessment/Plan All Active Problems (Last Reviewed 01/20/20 @ 15:44 by Daniella Jacobo) Rupture of membranes with clear amniotic fluid (Acute) Positive GBS test (Acute) Supervision of normal first (Acute) (Acute) Elevated liver enzymes (Resolved) s/p PPD # 1 1. routine post delivery care 2. breast feeding- support given 3. rh positive 4. rubella immune
[2020-01-25] MEDS: Naproxen 250 MG Tablet 500 MG PO ×3 (08:06→15:51)
[2020-01-25] MEDS: Docusate Sodium 100 MG Capsule PO (08:17)
[2020-01-25] MEDS: Ferrous Sulfate 325 MG Tablet PO (08:17)
[2020-01-25] MEDS: Prenatal Vits Tablet 1 TABLET PO (11:49)
[2020-01-26 01:04] VITALS: BP 118/66; PULSE 78; RESP 16; TEMP 36.9
[2020-01-26 07:48] VITALS: BP 133/84; PULSE 76
[2020-01-26 07:49] VITALS: BP 133/84; PULSE 66; RESP 16; TEMP 36.6; O2SAT 97
[2020-01-26] MEDS: Docusate Sodium 100 MG Capsule PO (08:01)
== END 2020-01-26 12:45 | disposition home or self-care (01) | DRG 806 ==
LOC: OBT 18:16 → WP 18:16
PROVIDERS: Obstetrics & Gynecology; Admitting Provider Obstetrics & Gynecology; PCP Family Medicine; Referring Provider Obstetrics & Gynecology; Visit Provider Obstetrics & Gynecology
DX: O98.82 Other maternal infectious and parasitic diseases complicating childbirth (principal); O71.4 Obstetric high vaginal laceration alone; Z37.0 Single live birth; B95.1 Streptococcus, group B, as the cause of diseases classified elsewhere; Z3A.30 30 weeks gestation of pregnancy
CPT/HCPCS: 59025; 59050; 84112; 85025; 86850; 86900; 86901; 99218; J7120; A4216; G0378

== ENCOUNTER → 2020-03-12 | Outpatient (CLI) | payer OTHER, SELFPAY ==
[2020-03-12 11:30] VITALS: BMI 25.7
[2020-03-16 16:59] LABS: HPV Reflexed? NOT INDICATED
== END | disposition home or self-care (01) ==
LOC: LABSPEC 13:26
PROVIDERS: PCP Family Medicine; Referring Provider Obstetrics & Gynecology; Visit Provider Obstetrics & Gynecology
DX: Z12.4 Encounter for screening for malignant neoplasm of cervix (principal)
CPT/HCPCS: 88175; G0145

== ENCOUNTER 2020-06-04 16:15 | Outpatient (RCR) | payer OTHER, SELFPAY ==
[2018-09-22 11:38] VITALS: BMI 23.6
[2019-05-30 08:14] VITALS: BMI 23.6
--- NOTE | 2019-06-13 14:06 | MASS.EVAL_ITS ---
Massage Therapy Evaluation: Initial Evaluation Date: 06/13/2019 SUBJECTIVE: Lexus is a 28 year old female who was referred to the [facility] facility for a massotherapy evaluation by Dr. Cho with the diagnosis of back pain. Lexus presents today with the symptoms of pain, stiffness and tension in her neck, mid back and low back. Lexus reports having a past medical history of pain and tension in her neck and shoulders related to her posture at work. She reports having minimal improvement with exercise and stretching. OBJECTIVE: Upon observation Lexus has some posture issues with her head and shoulders forward from the neutral position in sitting and standing. After examination and palpation I found Lexus to have high muscle tension with tenderness and myofascial restrictions in her sub occipitals, levator scapulae, trapezius, rhomboids, scalenes, and thoracic paraspinals. Her QL?s, lumbar paraspinals, piriformis, glute medius and minimus all were very tight with fascial restrictions, tender points and trigger points. The first treatment consisted of a one hour massage to her upper body with myofascial release, muscle stripping, trigger point compression techniques, and cervical manual traction. ASSESSMENT: I feel that Lexus is a good candidate for massotherapy at this time. She had a favorable response to the first treatment with reduction in her muscle aches, pain and tension. She also had improvement in her cervical flexibility and low back flexibility. PLAN: The plan of care was reviewed with the patient. The patient is to be seen on an as needed basis for a total of ten sessions with the recommendation of once every month for a one hour treatment.
--- NOTE | 2020-06-06 12:11 | DS.PCM_ITS ---
Massage Therapy Discharge Summary: DATE: 06/06/20 V#: [id number] PT NAME: IVETTE FINNEY : 89 REF PHYS: DR. PLASCENCIA THE PATIENT WAS SEEN FOR MASSOTHERAPY EVALUATION ON 06/13/19 WITH A DIAGNOSIS OF BACK PAIN. THE PATIENT WAS TREATED WITH 9 SESSIONS OF MASSAGE CONSISTING OF DEEP TISSUE UPPER BODY ONE HOUR SESSIONS. HER GOAL FOR TREATMENT WAS MET WITH 9 SES SIONS OF MASSAGE. AT THIS TIME I AM DISCHARGING THE PATIENT FORM OUR CARE AT THE [facility].
== END 2020-06-04 19:00 | disposition home or self-care (01) ==
LOC: MASS 16:15
PROVIDERS: Family Provider Family Medicine; PCP Family Medicine; Referring Provider Family Medicine; Visit Provider Family Medicine
DX: M54.9 Dorsalgia, unspecified (principal)
CPT/HCPCS: 97124

== ENCOUNTER → 2020-06-09 | Outpatient (CLI) | payer OTHER, SELFPAY ==
[2020-04-06 13:10] VITALS: BMI 25.7
== END | disposition home or self-care (01) ==
LOC: LABSPEC 09:35
PROVIDERS: PCP Family Medicine; Visit Provider Physician Assistant Medical
DX: U07.1 COVID-19 (principal)
CPT/HCPCS: 87633; 87635; U0002

== ENCOUNTER → 2021-03-18 | Outpatient (CLI) | payer OTHER, SELFPAY ==
[2021-03-21 16:28] LABS: HPV Reflexed? NOT INDICATED
== END | disposition home or self-care (01) ==
LOC: LABSPEC 15:07
PROVIDERS: PCP Family Medicine; Referring Provider Obstetrics & Gynecology; Visit Provider Obstetrics & Gynecology
DX: Z12.4 Encounter for screening for malignant neoplasm of cervix (principal)
CPT/HCPCS: 88175; G0145

== ENCOUNTER 2021-05-28 18:30 | Outpatient (RCR) | payer OTHER, SELFPAY ==
[2020-03-12 11:30] VITALS: BMI 25.7
[2020-04-06 13:10] VITALS: BMI 25.7
--- NOTE | 2020-06-27 16:40 | MASS.EVAL ---
Massage Therapy Evaluation: Initial Evaluation Date: 06/27/2020 SUBJECTIVE: Lexus is a 29 year old female who was referred to the [facility] facility for a massotherapy evaluation by Dr. Elder with the diagnosis of back pain. She presents today with the symptoms of pain, stiffness and tension in the neck, mid back, low back, hips, and legs. Lexus reports having a past medical history of chronic pain in her neck, back, and shoulders. She reports having minimal improvement with exercise and stretching over the last few months. OBJECTIVE: Upon observation Lexus has some posture issues with her head and shoulders forward from the neutral position in sitting and standing. After examination and palpation, I found Lexus to have high muscle tension with tenderness and myofascial restrictions in her sub occipitals, levator scapulae, trapezius, rhomboids, scalenes, and thoracic paraspinals. Her QL?s, lumbar paraspinals, piriformis, glute medius and minimus all were very tight with fascial restrictions, tender points and trigger points. The first treatment consisted of a one hour massage to her full body with myofascial release, muscle stripping, trigger point compression techniques, and cervical manual traction. ASSESSMENT: I feel that Lexus is a good candidate for massotherapy at this time. She had a favorable response to the first treatment with reduction in her muscle aches, pain and tension. She also had improvement in her cervical flexibility and low back flexibility. PLAN: The plan of care was reviewed with the patient. The patient is to be seen on an as needed basis for a total of ten sessions with the recommendation of once every month for a one hour treatment.
--- NOTE | 2021-05-28 19:47 | MASS.DISCH ---
Massage Therapy Discharge Summary: Discharge Date: 05/28/2021 Lexus was seen for a massotherapy evaluation on 06/25/2020 with the diagnosis of back pain. She was treated with nine sessions of massage therapy consisting of deep pressure soft tissue techniques, myofascial release and trigger point compression to his cervical, thoracic, lower back and hips. Lexus responded well to the therapy by reporting decreased tension and pain throughout her neck, shoulders, lower back, lower extremities and hips. Her goals for therapy were met throughout the treatment sessions. At this time this patient is being discharged from our care at [facility] facility.
== END 2021-05-28 19:00 | disposition home or self-care (01) ==
LOC: MASS 18:30
PROVIDERS: PCP Family Medicine; Referring Provider Family Medicine; Visit Provider Family Medicine
DX: M54.9 Dorsalgia, unspecified (principal)
CPT/HCPCS: 97124

== ENCOUNTER → 2022-03-13 | Outpatient (CLI) | payer OTHER, SELFPAY ==
[2022-03-13 11:02] LABS: Absolute Lymphocyte Count 2.08 X10^3/uL (0.83-4.51); Basophil# 0.03 X10^3/uL; Basophil% 0.4 % (0-1); Eosinophil# 0.07 X10^3/uL; Hematocrit 38.7 % (37-47); Hemoglobin 12.9 g/dL (12.0-15.0); Lymphocyte # 2.08 X10^3/ul (0.83-4.51); Lymphocyte % 30.3 % (19-41); Mean Corp Hgb Conc 33.3 g/dL (32-36); Mean Corpuscular Hgb 29.3 pg (27.0-32.0); Mean Platelet Vol. 10.2 fl (6.2-12.0); Monocyte# 0.62 X10^3/uL; NRBC Flagged by Analyzer 0 % (0-5); Neutrophil # 4.04 X10^3/uL (2.7-7.7); Neutrophil % 58.9 % (47-70); Platelet Count 228 K/mm3 (150-450); RBC Distribution Width CV 12.8 % (11.6-14.6); White Blood Count 6.9 K/mm3 (4.4-11.0)
[2022-03-13 13:29] LABS: HIV - WCH Non-Reactive (Nonreactive); Hepatitis B Surface Antigen Non-Reactive (Nonreactive); Hepatitis C Antibody Non-Reactive (Nonreactive); Rubella IgG Reactive (Nonreactive); Syphilis Antibodies Non-reactive
[2022-03-13 16:21] LABS: Amphetamine Urine VISTA NEGATIVE (<1000 ng/mL); Barbiturate Urine VISTA NEGATIVE (< 200 ng/mL); Benzodiazepine Urine VISTA NEGATIVE (< 200 ng/mL); Cocaine Urine VISTA NEGATIVE (< 300 ng/mL); Ecstacy Urine VISTA NEGATIVE (< 500 ng/mL); Methadone Urine VISTA NEGATIVE (< 300 ng/mL); PCP Urine VISTA NEGATIVE (< 25 ng/mL); THC Urine VISTA NEGATIVE (< 50 ng/mL); Vista UDS pH Range 8
[2022-03-17 22:06] LABS: Chlamydia By Nucleic Acid AMP Negative (Negative)
[2022-03-18 10:37] LABS: Gonococcus By Nucleic Acid AMP Negative (Negative)
== END | disposition home or self-care (01) ==
PROVIDERS: PCP Family Medicine; Referring Provider Obstetrics & Gynecology; Visit Provider Obstetrics & Gynecology
DX: Z34.91 Encounter for supervision of normal pregnancy, unspecified, first trimester (principal); Z3A.08 8 weeks gestation of pregnancy
CPT/HCPCS: 36415; 80307; 85025; 86703; 86762; 86780; 86803; 86850; 86900; 86901; 87086; 87340; 87491; 87591

== ENCOUNTER → 2022-05-26 | Outpatient (CLI) | payer OTHER, SELFPAY ==
--- NOTE | 2022-05-26 07:27 | US_ITS ---
STUDY: SECOND AND THIRD TRIMESTER OBSTETRICAL ULTRASOUND REASON FOR EXAM: Female, 31 years old . Anatomy scan. LMP: 01/12/2022. TECHNIQUE: Transabdominal and Transvaginal TECHNICAL QUALITY: Adequate. PRIOR ULTRASOUND: None. FINDINGS: There is a single intrauterine fetus. The fetus is in a cephalic presentation. There is demonstrated cardiac activity with a heart rate of 157 bpm. There is a normal amniotic fluid volume. The largest amniotic fluid pocket measures 3.2 cm x 7 cm. The amniotic fluid index (CHANDRA) is within normal limits. The placenta is anterior in location and is not low lying. There are Grade 0 placental changes. The cervix measures 4.2 cm in length. The adnexal regions are not visualized. BIOMETRY: BPD: 4.6 cm: 20 weeks, 0 days HC: 17.14 cm: 19 weeks, 5 days AC: 15.09 cm: 20 weeks, 2 days FL: 3.01 cm: 19 weeks, 2 days CI: 80.6% FL/BPD: 65.2% FL/HC: FL/AC: 19.9% HC/AC: 1.14 age by current US: 19 weeks, 4 days. LEONARDA by current US: 10/16/2022. Estimated weight: 319 grams, +/- 48 grams, 84.7 %. Age by LMP: 19 weeks, 1 days. LEONARDA by LMP: 10/19/2022. ANATOMY: Gender: Female Cranium: Normal lateral ventricles. Normal choroid plexus. Normal cerebellum. Normal cisterna magna. Normal face, nose and lips. Chest: Normal 4-chamber heart. Abdomen/Pelvis: Normal diaphragm. Normal stomach. Normal abdominal wall. Normal cord insertion. Normal 3 vessel cord. Normal kidneys. Normal bladder. Spine: Normal cervical spine. Normal thoracic spine. Normal lumbar spine. Normal sacrum. Extremities: Normal bilateral upper extremities. Normal bilateral lower extremities. US/OB Anatomy Scan IMPRESSION: Single live intrauterine gestation with a mean gestational age of 19 weeks and 4 days. Electronically Signed: Pratik Berumen MD at 14:18 EST ,
== END | disposition home or self-care (01) ==
PROVIDERS: PCP Family Medicine; Visit Provider Obstetrics & Gynecology
DX: Z34.92 Encounter for supervision of normal pregnancy, unspecified, second trimester (principal); Z3A.19 19 weeks gestation of pregnancy
CPT/HCPCS: 76805; 76817

== ENCOUNTER → 2022-07-16 | Outpatient (CLI) | payer OTHER, SELFPAY ==
[2022-07-16 09:01] LABS: Absolute Lymphocyte Count 1.83 X10^3/uL (0.83-4.51); Absolute Neutrophil Count 5.4 X10^3/uL (2.0-7.7); Basophil# 0.03 X10^3/uL; Basophil% 0.4 % (0-1); Eosinophil# 0.08 X10^3/uL; Hematocrit 36.2 % (37-47); Hemoglobin 11.8 g/dL (12.0-15.0); Lymphocyte # 1.83 X10^3/ul (0.83-4.51); Lymphocyte % 22.1 % (19-41); Mean Corp Hgb Conc 32.6 g/dL (32-36); Mean Corpuscular Hgb 29.5 pg (27.0-32.0); Mean Corpuscular Volume 90.5 fL (81-99); Mean Platelet Vol. 9.9 fl (6.2-12.0); Monocyte# 0.83 X10^3/uL; NRBC Flagged by Analyzer 0 % (0-5); Neutrophil % 65.3 % (47-70); Platelet Count 206 K/mm3 (150-450); RBC Distribution Width CV 13.8 % (11.6-14.6); RBC Distribution Width SD 46.3 fl (35.1-43.9); White Blood Count 8.3 K/mm3 (4.4-11.0)
[2022-07-16 09:18] LABS: Glucose Challenge Gest 1H 50g 68 mg/dL (70-140)
[2022-07-16 09:53] LABS: HIV - WCH Non-Reactive (Nonreactive); Syphilis Antibodies Non-reactive
== END | disposition home or self-care (01) ==
LOC: LAB 08:22
PROVIDERS: PCP Family Medicine; Referring Provider Obstetrics & Gynecology; Visit Provider Obstetrics & Gynecology
DX: Z34.90 Encounter for supervision of normal pregnancy, unspecified, unspecified trimester (principal)
CPT/HCPCS: 36415; 82950; 85025; 86703; 86780

== ENCOUNTER → 2022-09-26 | Outpatient (CLI) | payer OTHER, SELFPAY | END | disposition home or self-care (01) | LOC: LABSPEC 14:07 | PROVIDERS: PCP Family Medicine; Referring Provider Obstetrics & Gynecology; Visit Provider Obstetrics & Gynecology | DX: Z34.90 Encounter for supervision of normal pregnancy, unspecified, unspecified trimester (principal) | CPT/HCPCS: 87081 ==

== ENCOUNTER 2022-10-09 06:45 | Inpatient (IN) | payer OTHER, SELFPAY ==
[2022-10-09] VITALS (14 sets, daily range): BP systolic 110–134; BP diastolic 60–85; PULSE 68–88; RESP 15–18; TEMP 35.8–37; O2SAT 98; BMI 36.3
[2022-10-09] MEDS: Oxytocin 10 UNITS/ML Vial IM (07:08)
[2022-10-09] MEDS: Oxytocin 15 Units/NS 250ml 15 UNITS/250 ML IV.SOLN 83 UNITS IV (07:09)
[2022-10-09 08:09] LABS: Syphilis Antibodies Non-reactive
--- NOTE | 2022-10-09 08:23 | HP.PCM.OB_ITS ---
HPI - General General Date of Admission: 10/09/22 HPI Narrative IVETTE FINNEY, is a 32 y/o @38 weeks 4 days who presents to L&D in active labor, found to be completely dilated and membranes ruptured by the nurses. Maternal Data Information LEONARDA Calculator Estimated Delivery Date Method Current WG Current Estimate 10/19/22 LMP (Certain) 38w 4d PFSH PFSH Medical History Contact with and (suspected) exposure to other viral communicable diseases Home Medications vitamin#30 30 mg iron-10 mg iron-folic acid 1 mg-omg3 capsule 1 cap PO DAILY 11/04/19 [History Last Taken 10/08/22] Allergy/AdvReac Type Severity Reaction Status Date / Time No Known Allergies Allergy Verified 10/08/22 09:13 Family History Father CAD (coronary artery disease) Surgical History No significant past surgical history Social History adopted: No household members: significant other and children housing: house number of children: 1 current occupational status: employed 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/hazards: No pets and animals: Yes pets and animals: dog(s) history of recent travel: No sexually active: Yes Smoking Status: Never smoker second hand exposure: No alcohol intake: former details: social substance use type: does not use caffeine: Yes Type: carbonated beverages Number of servings: 1 eating out: 4 or more times/week what type of physical activity do you participate in: other details: [employer] Classes frequency: 1-2 times per week jayesh/alevism: None seatbelt use: always do you feel safe at home: Yes additional social history: [employer]- [employer]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 Date Name GA/Weeks Outcome Route Bth Weight Gen Labor Lgth Anesthesia Del Locatn Provider FOB 01/24/20 Betsy 39 live - full term Female [facility] Dr. Clarke Visit Details Expected Delivery Route/Plan Labor Preferences- CB/BF classes: just breathe labor support person: selena labor intervention preferences: [] pain management options preferred: natural cut cord/dad catch: dad wants to catch : yes PP control planned: discussed discussed possible routes of delivery and associated risks: [] special requests: [] Plans Covid status: discussed Flu vaccine: discussed Tdap vaccine: given Rhogam: NA LARC form signed: yes Problem list reviewed and updated with the most current plan of care details and appropriate orders placed. Relevant counseling for the gestational age provided. Continue routine care and follow up unless otherwise noted in visit notes/problem list details OB Flowsheet Initial Weight: Not Recorded Date -?-?-?-?-?-?-?-?-?-?-?-?- EGA Weight BP Urine Prot -?-?-?-?-?-?-?-?-?-?-?-?- Glucose FHR FuHt Pres Dilation -?-?-?-?-?-?-?-?-?-?-?-?- Effaced St Visit Note 03/13/22 -?-?-?-?-?-?-?-?-?-?-?-?- 8w 4d 169 lb 135/77 -?-?-?-?-?-?-?-?-?-?-?-?- 180 -?-?-?-?-?-?-?-?-?-?-?-?- SM- CRL 2.27cm c ons with LMP 04/09/22 -?-?-?-?-?-?-?-?-?-?-?-?- 12w 3d 176 lb 121/76 Negative -?-?-?-?-?-?-?-?-?-?-?-?- Negative 159 -?-?-?-?-?-?-?-?-?-?--?-?- JV- no complaint s today. pnl reviewed. 05/09/22 -?-?-?-?-?-?-?-?-?-?-?-?- 16w 5d 180 lb 130/70 Negative -?-?-?-?-?-?-?-?-?-?-?-?- Negative 150 -?-?-?-?-?-?-?-?-?-?-?-?- SM- no vb crampi ng 06/06/22 -?-?-?-?-?-?-?-?-?-?-?-?- 20w 5d 190 lb 2 oz 114/63 Nega tive -?-?--?-?-?-?-?-?-?-?-?-?- Negative 155 -?-?-?-?-?-?-?-?-?-?-?-?- SM- no vb lof go od fm no reugalr ctx reveiwed US results 07/04/22 -?-?-?-?-?-?-?-?-?-?-?-?- 24w 5d 202 lb 2 oz 112/67 Nega tive -?-?-?-?-?-?-?-?-?-?-?-?- Negative 150 24 Cephalic -?-?-?-?-?-?-?-?-?-?-?-?- JV- no lof, vagi nal bleeding, or dec fm. 07/30/22 -?-?-?-?-?-?-?-?-?-?-?-?- 28w 3d 207 lb 4 oz 102/6 Nega tive -?-?-?-?-?-?-?-?-?-?-?-?- Negative 152 29 -?-?-?--?-?-?-?-?-?-?-?-?- MH-No VB, LOF. G ood FM. [facility]. Tdap 08/13/22 -?-?-?-?-?-?-?-?-?-?-?-?- 30w 3d 207 lb 4 oz 100/66 Nega tive -?-?-?-?-?-?-?-?-?-?-?-?- Negative 148 30 -?-?-?-?-?-?-?-?-?-?-?-?- LC- normal 28 we ek labs. good fm. no ctx/lof/vb. 08/27/22 -?-?-?-?-?-?-?-?-?-?-?-?- 32w 3d 213 lb 8 oz 109/70 Nega tive -?-?-?-?-?-?-?-?-?-?-?-?- Negative 150 34 -?-?-?-?-?-?-?-?-?-?-?-?- JV- normal 28 we ek labs . has sciatic nerve pain. wants referral to DR. Sullivan. 09/10/22 -?-?-?-?-?-?-?-?-?-?-?-?- 34w 3d 214 lb 9.6 oz 116/74 Ne gative -?-?-?-?-?-?-?-?-?-?-?-?- Negative 154 35 -?-?-?-?-?-?-?-?-?-?-?-?- MH-No VB, lof. G ood FM Denies concerns 09/26/22 -?-?-?-?-?-?-?-?-?-?-?-?- 36w 5d 218 lb 2 oz 118/76 -?-?-?-?-?-?-?-?-?-?-?-?- 145 37 -?-?-?-?-?-?-?-?-?-?-?-?- SM- no vb lof go od fm no regular ctx gbs 10/03/22 -?-?-?-?-?-?-?-?-?-?-?-?- 37w 5d 218 lb 8 oz 119/78 Nega tive -?-?-?-?-?-?-?-?-?-?-?-?- Negative 141 37 Cephalic 2 .5 -?-?-?-?-?-?-?-?-?-?-?-?- 60 -2 JV- no lof , vaginal bleeding, or dec fm. no complaints. labor precautions discussed. has her diaper libertarian this weekend. 10/08/22 -?-?-?-?-?-?-?-?-?-?-?-?- 38w 3d 223 lb 113/79 Trace -?-?-?-?-?-?-?-?-?-?-?-?- Negative 155 38 Cephalic 3 -?-?-?-?-?-?-?-?-?-?-?-?- 70 -2 LC- no lof /vb/ctx. good fm. no concerns. ROS Constitutional Constitutional: Denies change in weight, fatigue, fever(s), headache(s), poor appetite or weakness Eyes Eyes: Denies blurry vision, change in vision, seeing flashes or spots in vision ENT HEENT: Denies dizziness, headache(s), loss taste/smell or sore throat Cardiovascular Cardiovascular: Denies chest pain, dizziness, dyspnea, irregular heart rhythm, leg edema, palpitations, rapid heart rate or vomiting Respiratory/Chest Respiratory/Chest: Denies chest tightness, cough, dyspnea or breast pain Gastrointestinal Gastrointestinal: Denies abdominal pain, anorexia, constipation, cramping, diarrhea, hemorrhoids, vomiting or weight changes Genitourinary Genitourinary: Denies dysuria, flank pain, genital lesions, genital pain, urinary frequency or urinary urgency Musculoskeletal Musculoskeletal: Denies back pain, difficulty walking, joint pain, limited range of motion, muscle cramps or numbness Integumentary Integumentary: Denies lesions or unusual bruising Neurologic Neurologic: Denies abnormal movements, abnormal speech, dizziness, numbness, seizure-like activity or syncope Psychiatric Psychiatric: Denies anxiety, behavioral changes, change in appetite, change in libido, cognitive impairment, confusion, depression, difficulty concentrating, hallucinations or suicidal thoughts Endocrine Endocrinology: Denies excessive sweating, polydipsia or polyuria Hematologic/Lymphatic Hematologic/Lymphatic: Denies easy bleeding, easy bruising or lymphadenopathy Allergic/Immunologic Allergic/Immunologic: Denies itchy eyes, lip swelling, seasonal rhinorrhea, rhinitis, throat swelling, tongue swelling, eczemia, wheezing or asthma Vital Signs Vital Signs Vital Signs: 10/09/22 06:38 10/09/22 06:38 10/09/22 06:38 Temperature 96.4 F L Pulse Rate 88 Blood Pressure 116/79 BP Systolic 116 BP Diastolic 79 Pulse Ox 10/09/22 07:18 10/09/22 07:18 10/09/22 07:18 Temperature Pulse Rate 83 Blood Pressure 123/76 H BP Systolic 123 BP Diastolic 76 Pulse Ox 98 10/09/22 07:18 10/09/22 07:33 10/09/22 07:33 Temperature 98.6 F Pulse Rate 77 Blood Pressure 121/82 H BP Systolic 121 BP Diastolic 82 Pulse Ox 10/09/22 07:48 10/09/22 07:48 10/09/22 08:03 Temperature Pulse Rate 77 Blood Pressure 111/77 134/85 H BP Systolic 111 134 BP Diastolic 77 85 Pulse Ox 10/09/22 08:03 10/09/22 08:18 10/09/22 08:18 Temperature Pulse Rate 80 82 Blood Pressure 128/80 H BP Systolic 128 BP Diastolic 80 Pulse Ox Weight Weight: 218 lb 11.177 oz Body Mass Index (BMI) 36.3 Physical Exam Const alert, oriented x3, no apparent distress and healthy appearing General Appearance: cooperative; Negative for anxious HEENT normocephalic Face and Sinus: normal facial exam Eyes EOMs intact bilaterally and no scleral icterus General Eye: normal appearance of both eyes Neck full ROM and supple Lymph Lymphatic: no lymphadenopathy noted Chest Chest: abnormal inspection of the chest Resp normal respiratory effort Effort and Inspection: able to speak in complete sentences Cardio regular rate GI soft to palpation and non-tender Inspection: gravid Palpation: soft; Negative for tender external exam normal Back/Spine no CVA tenderness Extremity normal to inspection, full ROM and no clubbing, cyanosis or edema General Extremity: Negative for calf tenderness or edema Skin Lesions: no lesions Rashes: no rashes Psych mental status grossly normal Labs Labs Labs: Blood Type O POSITIVE Antibody Screen NEGATIVE Hct 36.2 % (37-47) L Hgb 11.8 g/dL (12.0-15.0) L Obstetrics US Syphilis Total Ab Non-reactive Rubella IgG Antibody Reactive (Nonreactive) Hep Bs Antigen Non-Reactive (Nonreactive) Chlamydia DNA ([facility]) Negative (Negative) Neisseria gonorrhoeae DNA ([facility]) Negative (Negative) HIV 1&2 Antibody Non-Reactive (Nonreactive) Glucose 1 Hr 50 gm 68 mg/dL (70-140) L Rhogam given: No Assessment & Plan (1) Supervision of normal : COMMENT: PRR , LEONARDA 10/19/22 PC Betsy, Boyfriend- Selena ([place]) (2) : QUALIFIERS: Weeks of gestation: 38 weeks Qualified Code(s): Z3A.38 - 38 weeks gestation of COMMENT: GBS neg, anatomy nl, declined genetic & carrier testing, afp. 07/16 nl GCT PLAN: Plan Patient presents IAL, plan expectant management for Pain management: none. GBS negative . Management of any complications: none I have reviewed the [facility] and made any clinically relevant updates.
--- NOTE | 2022-10-09 08:29 | EX.PCM.OBRPT ---
Assessment & Plan (1) : QUALIFIERS: Weeks of gestation: 38 weeks Qualified Code(s): Z3A.38 - 38 weeks gestation of COMMENT: GBS neg, anatomy nl, declined genetic & carrier testing, afp. 2/8 nl GCT (2) Supervision of normal : COMMENT: PRR , LEONARDA 10/19/22 PC Betsy, Boyfriend- Everardo ([place]) Maternal Data Information LEONARDA Calculator Estimated Delivery Date Method Current WG Current Estimate 10/19/22 LMP (Certain) 38w 4d Vaginal Delivery Operative Information Date of Procedure: 10/09/22 Pre-Operative Diagnosis: 38 weeks 3 day srom, , active labor Post-Operative Diagnosis: 38 weeks 3 day srom, , active labor Surgery / Procedure Performed: Spontaneous Vaginal Delivery Type of Anesthesia: None Drain: Valero to straight drain Estimated Blood Loss: 50cc Findings Description of Procedure: Patient began pushing and delivered the head in the ALEJANDRINA presentation. The head was delivered atraumatically. The anterior and posterior shoulders delivered without complication followed by the rest of the and the was placed on the maternal abdomen. Delayed cord clamping was employed for approximately 60 seconds. Cord was clamped and cut and gentle traction was applied to the cord and the placenta delivered spontaneously immediately following it was noted to be intact with three-vessel cord. The perineum and vagina were inspected and noted to have no laceration. EBL was 50cc. Patient and infant tolerated delivery well. Presentation: Vertex Amniotic Membrane Rupture Type: Spontaneous Amniotic Fluid Description: Clear Placental Delivery Description: Spontaneous Placenta Disposition: [facility] Cord Vessel Description: 3 Vessels Cord Entanglement: None (1 minute): 8 (5 minute): 9 Delayed Cord Clamping: Yes Post Vaginal Delivery Medications Given After Delivery: IV Pitocin and IM Pitocin Episiotomy Description: None Laceration: None Complication Complications: None Multi Select Codes Urinary/Genital Urinary/Genital CPT Codes: 34047 Vaginal Delivery global pkg
[2022-10-09] MEDS: 0.9% Saline Lock 10 ML Syringe IV (10:19)
[2022-10-09 11:34] LABS: Absolute Neutrophil Count 12.2 X10^3/uL (2.0-7.7); Basophil# 0.06 X10^3/uL; Basophil% 0.4 % (0-1); Hematocrit 39.5 % (37-47); Hemoglobin 12.6 g/dL (12.0-15.0); Mean Corp Hgb Conc 31.9 g/dL (32-36); Mean Corpuscular Hgb 28.4 pg (27.0-32.0); Mean Corpuscular Volume 89.2 fL (81-99); Mean Platelet Vol. 10.3 fl (6.2-12.0); Monocyte# 0.69 X10^3/uL; Monocyte% 4.8 % (0-10); NRBC Flagged by Analyzer 0 % (0-5); Neutrophil # 12.18 X10^3/uL (2.7-7.7); Neutrophil % 84.8 % (47-70); Platelet Count 240 K/mm3 (150-450); RBC Distribution Width CV 13.5 % (11.6-14.6); RBC Distribution Width SD 44.1 fl (35.1-43.9); Red Blood Count 4.43 M/mm3 (4.2-5.4); White Blood Count 14.4 K/mm3 (4.4-11.0)
[2022-10-09] MEDS: Naproxen 500 MG Tablet PO ×2 (14:13→22:03)
[2022-10-10 00:37] VITALS: BP 110/70; PULSE 64; RESP 16; TEMP 36.8
[2022-10-10 04:44] VITALS: BP 114/63; PULSE 65; RESP 15; TEMP 36.8
--- NOTE | 2022-10-10 07:23 | DCINST_ITS ---
Discharge Instructions Diet Discharge Diet: No restrictions Activity Discharge Activity: Return to Normal Activity, May Drive, May Shower and May Take a Tub Bath (in 4 weeks) May resume sexual activity in: 6-8 weeks (after seen by OB provider) Weight Bearing Status: Full weight bearing Lifting Restrictions: none Dressing / Incision Call your doctor if you observe: Fever of 101 or Higher, Inability to urinate, Using more than 1 pad per hour (for more than 2 hours in a row or more), Shortness of breath, Dizziness, Chest pain and - (headache not controlled with tylenol, change in vision) Follow Up Care When: in 6 weeks for visit, call the office to make the appointment. If you had elevated blood pressures call the office to be seen within 1 week. Test Results: Test results from this visit will be discussed in further detail at your follow- up appointment, if applicable. Discharge Plan Admission Admit Date/Time: 10/09/22 06:45 Attending Provider: Mariposa Cleaning Primary Care Provider: Nahum Elder Discharge Orders/Prescriptions Prescriptions: No Action vitamin#30 30 mg iron-10 mg iron-folic acid 1 mg-omg3 capsule 30 mg iron-10 mg iron-1 mg capsule 1 cap PO DAILY Referrals / Follow Up: Nahum Elder MD [Primary Care Provider] - Disposition Disposition (needs filled in before D/C Order can be placed): Home, Self Care
--- NOTE | 2022-10-10 07:24 | PCM.PN.OB ---
Subjective Subjective Patient doing well without complaints. Tolerating PO. Ambulating and voiding without difficulty. feeding well. Denies chest pain, shortness of breath, calf pain/swelling, fevers, chills, lightheadedness. Objective Data Objective Data Vital Signs: Vital Signs Temp Pulse Resp BP Pulse Ox O2 Del Method 98.3 F 65 15 114/63 98 Room Air 10/10/22 04:44 10/10/22 04:44 10/10/22 04:44 10/10/22 04:44 10/09/22 07:18 10/10/22 04:44 Oxygen Delivery Method Room Air Weight: 218 lb 11.177 oz Body Mass Index (BMI) 36.3 Intake & Output: Intake and Output for Last 24 Hours 10/08/22 10/09/22 10/10/22 23:59 23:59 23:59 Intake Total 250 / 250 Output Total 50 / 50 Balance 200 / 200 Lab / Micro Data Result Diagrams: 10/09/22 08:25 Labs: Laboratory Results - last 24 hr 10/09/22 06:50: WBC Cancelled, Corrected WBC Cancelled, RBC Cancelled, Hgb Cancelled, Hct Cancelled, MCV Cancelled, MCH Cancelled, MCHC Cancelled, RDW Std Deviation Cancelled, RDW Coeff of Alisha Cancelled, Plt Count Cancelled, MPV Cancelled, Immature Gran % (Auto) Cancelled, Neut % (Auto) Cancelled, Lymph % (Auto) Cancelled, [place] % (Auto) Cancelled, Eos % (Auto) Cancelled, Baso % (Auto) Cancelled, Absolute Neuts (auto) Cancelled, Absolute Lymphs (auto) Cancelled, Total Counted Cancelled, Neutrophils % (Manual) Cancelled, Band Neutrophils % Cancelled, Lymphocytes % (Manual) Cancelled, Monocytes % (Manual) Cancelled, Eosinophils % (Manual) Cancelled, Basophils % (Manual) Cancelled, Metamyelocytes % Cancelled, Myelocytes % Cancelled, Promyelocytes % Cancelled, Blast Cells % Cancelled, Plasma Cell % (Manual) Cancelled, Other Cells % Cancelled, Nucleated RBC % Cancelled, Nucleated RBCs/100 WBC Cancelled, Differential Comment Cancelled, Diff Path Review Cancelled, Hypersegmented Neuts Cancelled, Atypical Lymphocytes Cancelled, Reactive Lymphocytes Cancelled, Smudge Cells Cancelled, Toxic Granulation Cancelled, Toxic Vacuolation Cancelled, Dohle Bodies Cancelled, Martínez Rods Cancelled, Platelet Estimate Cancelled, Plt Morphology Comment Cancelled, RBC Morphology Cancelled, Polychromasia Cancelled, Hypochromasia Cancelled, Poikilocytosis Cancelled, Basophilic Stippling Cancelled, Anisocytosis Cancelled, Microcytosis Cancelled, Macrocytosis Cancelled, Spherocytes Cancelled, Sickle Cells Cancelled, Target Cells Cancelled, Tear Drop Cells Cancelled, Ovalocytes Cancelled, Stomatocytes Cancelled, [place] Bodies Cancelled, [place] Cells Cancelled, Bite Cells Cancelled, Crenated Cell Cancelled, Acanthocytes (Spur) Cancelled, Rouleaux Cancelled, Schistocytes Cancelled 10/09/22 06:50: Syphilis Total Ab Non-reactive 10/09/22 06:54: Blood Type O POSITIVE, Antibody Screen NEGATIVE 10/09/22 08:25: WBC 14.4 H, RBC 4.43, Hgb 12.6, Hct 39.5, MCV 89.2, MCH 28.4, MCHC 31.9 L, RDW Std Deviation 44.1 H, RDW Coeff of Alisha 13.5, Plt Count 240, MPV 10.3, Immature Gran % (Auto) 1.000 H, Neut % (Auto) 84.8 H, Lymph % (Auto) 9.0 L, [place] % (Auto) 4.8, Eos % (Auto) 0.0, Baso % (Auto) 0.4, Absolute Neuts (auto) 12.2 H, Absolute Lymphs (auto) 1.30, Nucleated RBC % 0 ROS Constitutional Constitutional: Reports systems reviewed and no addt'l complaints, except as documented Cardiovascular Cardiovascular: Reports systems reviewed and no addt'l complaints, except as documented Respiratory/Chest Respiratory/Chest: Reports systems reviewed and no addt'l complaints, except as documented Gastrointestinal Gastrointestinal: Reports systems reviewed and no addt'l complaints, except as documented Physical Exam Const alert, oriented x3 and no apparent distress HEENT Head and Scalp: atraumatic Resp normal respiratory effort GI soft to palpation and non-tender Bimanual Exam - Vag & Uterus: uterus non-tender Uterus Palpation: uterus fundus firm (below Umbilicus) Assessment & Plan (1) Vaginal delivery: PLAN: Plan s/p PPD # 1 1. routine post delivery care 2. breast feeding- support given 3. rh positive 4. rubella immune
[2022-10-10 07:50] VITALS: BP 121/74; PULSE 65; RESP 16; TEMP 36.7; O2SAT 95
--- NOTE | 2022-10-14 11:47 | NURSING ---
Follow up call done today. Saw Odalys yesterday and baby was doing well. Mother reports she is feeling good , getting around well. Denies concerns or complications since being home. Was satisfied with care. Appreciated at night I was able to get sleep ,staff clustered care!
== END 2022-10-10 11:54 | disposition home or self-care (01) | DRG 807 ==
LOC: WPOUT 06:48 → WP 06:48
PROVIDERS: Obstetrics & Gynecology; Admitting Provider Obstetrics & Gynecology; PCP Family Medicine; Referring Provider Obstetrics & Gynecology; Visit Provider Obstetrics & Gynecology
DX: O80 Encounter for full-term uncomplicated delivery (principal); Z37.0 Single live birth; Z3A.38 38 weeks gestation of pregnancy
CPT/HCPCS: 59025; 59050; 85025; 86780; 86850; 86900; 86901; 99221; A4216; G0378

== ENCOUNTER → 2023-11-23 | Outpatient (CLI) | payer OTHER, SELFPAY ==
[2023-11-30 08:07] LABS: HPV APTIMA, High Risk Negative (Negative)
== END | disposition home or self-care (01) ==
PROVIDERS: PCP Obstetrics & Gynecology; Visit Provider Nurse Practitioner Family
DX: Z12.4 Encounter for screening for malignant neoplasm of cervix (principal)
CPT/HCPCS: 87624; 88175; G0145

== ENCOUNTER → 2024-09-09 | Outpatient (CLI) | payer OTHER, SELFPAY ==
[2024-09-09 12:19] LABS: Absolute Lymphocyte Count 1.99 X10^3/uL (0.83-4.51); Absolute Neutrophil Count 2.9 X10^3/uL (2.0-7.7); Basophil# 0.04 X10^3/uL; Basophil% 0.7 % (0-1); Eosinophil# 0.05 X10^3/uL; Eosinophils% 0.9 % (0-5); Hematocrit 41.6 % (37-47); Hemoglobin 13.4 g/dL (12.0-15.0); Lymphocyte # 1.99 X10^3/ul (0.83-4.51); Lymphocyte % 35.3 % (19-41); Mean Corp Hgb Conc 32.2 g/dL (32-36); Mean Corpuscular Hgb 27.8 pg (27.0-32.0); Mean Corpuscular Volume 86.3 fL (81-99); Mean Platelet Vol. 10.6 fl (6.2-12.0); Monocyte# 0.59 X10^3/uL; Monocyte% 10.5 % (0-10); NRBC Flagged by Analyzer 0 % (0-5); Neutrophil # 2.93 X10^3/uL (2.7-7.7); Neutrophil % 52.1 % (47-70); Platelet Count 246 K/mm3 (150-450); RBC Distribution Width CV 13.5 % (11.6-14.6); RBC Distribution Width SD 42.7 fl (35.1-43.9); Red Blood Count 4.82 M/mm3 (4.2-5.4); White Blood Count 5.6 K/mm3 (4.4-11.0)
[2024-09-09 12:59] LABS: HIV Nonreactive (Nonreactive); Hepatitis B Surface Antigen Nonreactive (Nonreactive); Hepatitis C Antibody Nonreactive (Nonreactive); Rubella IgG REAC (Nonreactive); Syphilis Antibodies Nonreactive (Nonreactive)
[2024-09-12 20:08] LABS: Chlamydia By Nucleic Acid AMP Negative (Negative); Gonococcus By Nucleic Acid AMP Negative (Negative)
== END | disposition home or self-care (01) ==
PROVIDERS: PCP Obstetrics & Gynecology; Referring Provider Obstetrics & Gynecology; Visit Provider Obstetrics & Gynecology
DX: Z34.90 Encounter for supervision of normal pregnancy, unspecified, unspecified trimester (principal)
CPT/HCPCS: 36415; 85025; 86703; 86762; 86780; 86803; 86850; 86900; 86901; 87086; 87340; 87491; 87591

== ENCOUNTER → 2024-11-16 | Outpatient (CLI) | payer OTHER, SELFPAY ==
--- NOTE | 2024-11-16 07:55 | US_ITS ---
PROCEDURE: OB ANATOMY W/ TRANSVAGINAL 11/16/2024 REASON FOR EXAM: ANATOMY SCAN 18-20WKS TECHNIQUE: High resolution obstetric ultrasound performed using a 2D transducer. Standard views obtained, including biometry, anatomy survey, and Doppler studies. COMPARISON: None FINDINGS Number: 1 Position: Breech Placental Position: Posterior Placental Abnormalities: No evidence of previa. DIMENSIONS: Biparietal Diameter: 4.4 cm: 19 weeks and 1 day: 14 percentile/ Head Circumference: 16.2 cm: 19 weeks and 0 days: 5th percentile/ Abdominal Circumference: 14.1 cm: 19 weeks and 3 days: 23rd percentile/ Femur Length: 3 cm: 19 weeks and 3 days: 16 percentile/ ESTIMATED WEIGHT: 289 g plus/-43 g ESTIMATED WEIGHT PERCENTILE (24+ weeks): 13 ESTIMATED GESTATIONAL AGE: Baseline: 20 weeks and 1 day By Ultrasound: 19 weeks and 2 days ESTIMATED DATE OF DELIVERY: Baseline: March 27, 2025 By Ultrasound: April 10, 2025 BIOPHYSICAL ASSESSMENT: Amniotic Fluid Volume: 2.8 cm Amniotic Fluid Index: Within normal limits. Cardiac Motion: 151 beats per minute (average) Trunk and Limb Motion: Present. MATERNAL ANATOMY: Adnexa: Neither maternal ovary is successfully identified. Cervical Length (if measured): 4.8 cm ANATOMY: Spine: Unremarkable Cranium: Unremarkable Cerebellum: Unremarkable Cisterna Magna: Unremarkable Cavum Septum Pellucidi: Unremarkable Lateral Ventricles: Unremarkable Choroid Plexus: Unremarkable Midline Falx: Unremarkable Nuchal Fold: Unremarkable Heart: Unremarkable Stomach: Unremarkable Kidneys: Unremarkable Bladder: Unremarkable Umbilical Cord: Three-vessel cord Normal placental insertion. cord insertion not seen well. Extremities: Unremarkable US/OB Anatomy w/ Transvaginal IMPRESSION: Single live intrauterine gestation with a mean gestational age of 19 weeks and 2 days. The head circumference measures 5th percentile. Reading Location: [facility]
== END | disposition home or self-care (01) ==
LOC: OPUS 07:53
PROVIDERS: PCP Nurse Practitioner Family; Referring Provider Advanced Practice Midwife; Visit Provider Advanced Practice Midwife
DX: Z34.92 Encounter for supervision of normal pregnancy, unspecified, second trimester (principal)
CPT/HCPCS: 76805; 76817

== ENCOUNTER → 2024-12-26 | Outpatient (CLI) | payer OTHER, SELFPAY ==
[2024-12-26 16:40] LABS: Hematocrit 34.1 % (37-47); Hemoglobin 11.2 g/dL (12.0-15.0); Immature Granulocytes Count 0.080 X10^3/uL (0.0-0.0); Mean Corp Hgb Conc 32.8 g/dL (32-36); Mean Corpuscular Volume 89.7 fL (81-99); Mean Platelet Vol. 10.0 fl (6.2-12.0); NRBC Flagged by Analyzer 0 % (0-5); Platelet Count 225 K/mm3 (150-450); RBC Distribution Width CV 13.6 % (11.6-14.6); RBC Distribution Width SD 44.5 fl (35.1-43.9); Red Blood Count 3.80 M/mm3 (4.2-5.4); White Blood Count 7.3 K/mm3 (4.4-11.0)
[2024-12-26 17:43] LABS: Glucose Challenge Gest 1H 50g 138 mg/dL (70-140); HIV Nonreactive (Nonreactive); Syphilis Antibodies Nonreactive (Nonreactive)
== END | disposition home or self-care (01) ==
PROVIDERS: PCP Nurse Practitioner Family; Visit Provider Nurse Practitioner Women's Health
DX: Z34.90 Encounter for supervision of normal pregnancy, unspecified, unspecified trimester (principal); Z13.1 Encounter for screening for diabetes mellitus
CPT/HCPCS: 36415; 82950; 85025; 86703; 86780

== ENCOUNTER → 2025-01-03 | Outpatient (CLI) | payer OTHER, SELFPAY ==
--- OUTSIDE RECORDS SUMMARY | 2025-01-03 06:52 | XMS RPT_ITS | CCD ---
Author Organization [facility] Providers Care Marina [employer] And [employer] Supervisor Name Role Phone Dr. Nahum Elder Primary Care Provider Dr. Nahum Elder Referring Provider Dr. Mariposa Cleaning Attending Provider [phone] Dr. Nicolle Murray Attending Provider [phone] Jael, Dr. Sidhu Primary Care Provider Jeal, Dr. Sidhu Referring Provider Dr. Mariposa Cleaning Attending Provider [phone] Jael, Dr. Sidhu Primary Care Provider Jael, Dr. Sidhu Referring Provider Dr. Mariposa Cleaning Attending Provider [phone] Dr. Nicolle Murray Attending Provider [phone] Lenin DISEASE INTERVENTION SPECIALIST, DISEASE INTERVENTION SPECIALIST-C Qian Attending Provider [phone] TIMBO Mcmahon Attending Provider [phone] Dr. Mary Sullivan Attending Provider [phone] Dr. Nahum Elder Primary Care Provider Dr. Nahum Elder Referring Provider Dr. Mariposa Cleaning Attending Provider [phone] Dr. Mariposa Cleaning Admit Provider [phone] Dr. Mariposa Cleaning Referring Provider [phone] Dr. Mariposa Cleaning Other Provider [phone] Dr. Mariposa Cleaning MD Primary Care Provider Dr. Mariposa Cleaning MD Referring Provider [phone] Dr. Nicolle Murray DO Attending Provider Dr. Nicolle Murray DO Referring Provider Kayla FOY, Dr. Carlson Attending Provider Manuel DISEASE INTERVENTION SPECIALIST-C, [facility] Primary Care Provider Jossy Umaña CNM Attending Provider [phone] Black FOY, Dr. Monge Attending Provider Jossy Umaña CNM Referring Provider [phone] Lenin DISEASE INTERVENTION SPECIALIST-C, Qian Attending Provider [phone] Manuel DISEASE INTERVENTION SPECIALIST-C, Hilda Referring Provider Jossy Umaña Attending Unavailable Jossy Umaña Referring Unavailable Manuel [facility], [facility] Primary Care Unavailabl e Manuel C, Hilda Primary Care Unavailabl e Robyn Garza Attending Unavailable Mariposa Cleaning Referring Unavailable Manuel C, Hilda Referring Unavailabl e Jossy Umaña Attending Unavailable Manuel C, Hilda Primary Care Unavailabl e Manuel VSC, Hilda Primary Care Unavailabl e Qian Phelps Attending Unavailable Manuel C, Hilda Primary Care Unavailabl e Jossy Umñaa Attending Unavailable Mariposa Cleaning Referring Unavailable Nicolle Murray Attending Unavailabl e Marcanthony, Mariposa Primary Care Unavailable Marcbilly, Mariposa Referring Unavailable Qian Phelps Attending Unavailable Mariposa Cleaning Referring Unavailable Manuel [facility], Hilda Primary Care Unavailabl e MarcanthonyMariposa Attending Unavailable Marcanthev, Mariposa Referring Unavailable Manule [facility], Hilda Primary Care Unavailabl e Marcanthev, Mariposa Primary Care Unavailable Nicolle Murray Attending Unavailabl e Nicolle Murray Referring Unavailabl e Medications Current Medications Medication Drug Class(es) Dates Sig (Normalized) Sig (Original) Multivit 61-Ygbu-Pxqykt 1-Dha (Pnv-Dha) 27 mg iron-1 mg -300 mg capsule (6 sources) Start: 08-26-2024 Multivit 88-Rwmn-Uwvtqv 1-Dha (Pnv-Dha) 27 mg iron-1 mg -300 mg capsule Active NMA PO August 26, 2024 12:00am vitamin#30 30 mg iron-10 mg iron-folic acid 1 mg-omg3 capsule (5 sources) Start: 11-04-2019 take 1 capsule by mouth once daily vitamin#30 30 mg iron-10 mg iron-folic acid 1 mg-omg3 capsule Active 1 CAP PO DAILY November 03, 2019 11:00pm Start: 11-04-2019 take 1 capsule by mo [facility] once daily vitamin#30 30 mg iron-10 mg iron-folic acid 1 mg-omg3 capsule Active 1 CAP PO DAILY November 04, 2019 12:00am Completed/Discontinued Medications Medication Drug Class(es) Dates Sig (Normalized) Sig (Original) docusate sodium 100 mg oral capsule (11 sources) Start: 06-30-2019 End: 03-18-2021 take 1 capsule by mouth once daily Docusate Sodium (Colace) 100 mg capsule Discontinued 100 mg PO DAILY June 30, 2019 1:00am March 18, 2021 10:01am Check with primary doctor Marlenethindbernarde-Abner.Es tradiol-Iron (11 sources) Estrogen Start: 10-16-2020 End: 11-02-2020 Norethindrone-E.Est radiol-Iron (Blisovi 24 Fe) 1 mg-20 mcg (24)/75 mg (4) tablet Discontinued 1 {tbl} PO DAILY 04 06October 16, 2020 12:00am November 02, 2020 12:04pm Start: 10-16-2020 End: 11-02-2020 Norethindrone-E.Estradiol-Ir on (Blisovi 24 Fe) 1 mg-20 mcg (24)/75 mg (4) tablet Discontinued 1 {tbl} PO DAILY October 16, 2020 12:00am November 02, 2020 12:04pm Start: 10-16-2020 End: 11-02-2020 take 1 tablet by mouth once daily Norethindrone-E.Estradiol-Iron (Blisovi 24 Fe) 1 mg-20 mcg (24)/75 mg (4) tablet Discontinued 1 TABLET PO DAILY October 15, 2020 11:00pm November 02, 2020 11:04am Start: 10-16-2020 End: 11-02-2020 take 1 tablet by mouth once daily Norethindrone-E.Estradiol-Iron (Blisovi 24 Fe) 1 mg-20 mcg (24)/75 mg (4) tablet Discontinued 1 TABLET PO DAILY October 16, 2020 12:00am November 02, 2020 12:04pm Norgestimate-Ethinyl Estradiol (20 sources) Progestin, Estrogen Start: 03-18-2021 End: 03-06-2022 Norgestimate-Ethinyl Estradiol (Sprintec (28)) 0.25-35 mg-mcg tablet Discontinued 1 {tbl} PO DAILY 84 March 18, 2021 10:26am March 06, 2022 2:02pm Start: 03-18-2021 End: 03-06-2022 Norgestimate-Ethinyl Estradi ol (Sprintec (28)) 0.25-35 mg-mcg tablet Discontinued 1 {tbl} PO DAILY March 18, 2021 10:26am March 06, 2022 2:02pm Start: 03-18-2021 End: 03-06-2022 take 1 tablet by mouth once daily Norgestimate-Ethinyl Estradiol (Sprintec (28)) 0.25-35 mg-mcg tablet Discontinued 1 TABLET PO DAILY March 18, 2021 10:26am March 06, 2022 2:02pm Start: 03-18-2021 End: 03-06-2022 take 1 tablet by mouth once daily Norgestimate-Ethinyl Estradiol (Sprintec (28)) 0.25-35 mg-mcg tablet Discontinued 1 TABLET PO DAILY March 18, 2021 9:26am March 06, 2022 1:02pm Start: 03-18-2021 take 1 tablet by [facility] once daily Norgestimate-Ethinyl Estradiol (Sprintec (28)) 0.25-35 mg-mcg tablet Active 1 TABLET PO DAILY March 18, 2021 10:26am Start: 11-02-2020 End: 03-18-2021 Norgestimate-Ethinyl Estradi ol (Sprintec (28)) 0.25-35 mg-mcg tablet Discontinued 1 {tbl} PO DAILY 84 November 02, 2020 3:21pm March 18, 2021 10:26am Start: 11-02-2020 End: 03-18-2021 Norgestimate-Ethinyl Estradi ol (Sprintec (28)) 0.25-35 mg-mcg tablet Discontinued 1 {tbl} PO DAILY November 02, 2020 3:21pm March 18, 2021 10:26am Start: 11-02-2020 End: 03-18-2021 take 1 tablet by mouth once daily Norgestimate-Ethinyl Estradiol (Sprintec (28)) 0.25-35 mg-mcg tablet Discontinued 1 TABLET PO DAILY November 02, 2020 2:pm March 18, 2021 9:26am Start: 11-02-2020 End: 03-18-2021 take 1 tablet by mouth once daily Norgestimate-Ethinyl Estradiol (Sprintec (28)) 0.25-35 mg-mcg tablet Discontinued 1 TABLET PO DAILY November 02, 2020 3:21pm March 18, 2021 10:26am Start: 11-02-2020 End: 11-02-2020 Norgestimate-Ethinyl Estradi ol (Sprintec (28)) 0.25-35 mg-mcg tablet Discontinued 1 {tbl} PO DAILY November 02, 2020 12:00am November 02, 2020 3:22pm Start: 11-02-2020 End: 11-02-2020 Norgestimate-Ethinyl Estradi ol (Sprintec (28)) 0.25-35 mg-mcg tablet Discontinued 1 {tbl} PO DAILY November 02, 2020 12:00am November 02, 2020 3:22pm Start: 11-02-2020 End: 11-02-2020 take 1 tablet by mouth once daily Norgestimate-Ethinyl Estradiol (Sprintec (28)) 0.25-35 mg-mcg tablet Discontinued 1 TABLET PO DAILY November 01, 2020 11:00pm November 02, 2020 2:22pm Start: 11-02-2020 End: 11-02-2020 take 1 tablet by mouth once daily Norgestimate-Ethinyl Estradiol (Sprintec (28)) 0.25-35 mg-mcg tablet Discontinued 1 TABLET PO DAILY November 02, 2020 12:00am November 02, 2020 3:22pm Start: 08-02-2018 End: 06-30-2019 Norgestimate-Ethinyl Estradi ol (Sprintec (28)) 0.25-35 mg-mcg tablet Discontinued 1 {tbl} PO daily 04 06August 02, 2018 1:00am June 30, 2019 9:52am Start: 08-02-2018 End: 06-30-2019 Norgestimate-Ethinyl Estradi ol (Sprintec (28)) 0.25-35 mg-mcg tablet Discontinued 1 {tbl} PO daily August 02, 2018 1:00am June 30, 2019 9:52am Start: 08-02-2018 End: 06-30-2019 take 1 tablet by mouth once daily Norgestimate-Ethinyl Estradiol (Sprintec (28)) 0.25-35 mg-mcg tablet Discontinued 1 TABLET PO daily August 02, 2018 12:00am June 30, 2019 8:52am Start: 08-02-2018 End: 06-30-2019 take 1 tablet by mouth once daily Norgestimate-Ethinyl Estradiol (Sprintec (28)) 0.25-35 mg-mcg tablet Discontinued 1 TABLET PO daily August 02, 2018 1:00am June 30, 2019 9:52am Start: 06-22-2018 End: 08-02-2018 Norgestimate-Ethinyl Estradi ol (Sprintec (28)) 0.25-35 mg-mcg tablet Discontinued 1 {tbl} PO daily June 22, 2018 4:02pm August 02, 2018 2:55pm Start: 06-22-2018 End: 08-02-2018 Norgestimate-Ethinyl Estradi ol (Sprintec (28)) 0.25-35 mg-mcg tablet Discontinued 1 {tbl} PO daily June 22, 2018 4:02pm August 02, 2018 2:55pm Start: 06-22-2018 End: 08-02-2018 take 1 tablet by mouth once daily Norgestimate-Ethinyl Estradiol (Sprintec (28)) 0.25-35 mg-mcg tablet Discontinued 1 TABLET PO daily 84 June 22, 2018 3:02pm August 02, 2018 1:55pm Start: 06-22-2018 End: 08-02-2018 take 1 tablet by mouth once daily Norgestimate-Ethinyl Estradiol (Sprintec (28)) 0.25-35 mg-mcg tablet Discontinued 1 TABLET PO daily 84 June 22, 2018 4:02pm August 02, 2018 2:55pm Start: 07-30-2017 End: 06-22-2018 Norgestimate-Ethinyl Estradi ol (Sprintec (28)) 0.25-35 mg-mcg tablet Discontinued 1 {tbl} PO daily 84 5 July 30, 2017 11:13am June 22, 2018 4:03pm Start: 07-30-2017 End: 06-22-2018 Norgestimate-Ethinyl Estradi ol (Sprintec (28)) 0.25-35 mg-mcg tablet Discontinued 1 {tbl} PO daily 84 July 30, 2017 11:13am June 22, 2018 4:03pm Start: 07-30-2017 End: 06-22-2018 take 1 tablet by mouth once daily Norgestimate-Ethinyl Estradiol (Sprintec (28)) 0.25-35 mg-mcg tablet Discontinued 1 TABLET PO daily 84 July 30, 2017 10:13am June 22, 2018 3:03pm Start: 07-30-2017 End: 06-22-2018 take 1 tablet by mouth once daily Norgestimate-Ethinyl Estradiol (Sprintec (28)) 0.25-35 mg-mcg tablet Discontinued 1 TABLET PO daily 84 July 30, 2017 11:13am June 22, 2018 4:03pm Start: 07-30-2017 End: 07-30-2017 Norgestimate-Ethinyl Estradi ol (Sprintec (28)) 0.25-35 mg-mcg tablet Discontinued 1 {tbl} PO daily July 30, 2017 1:00am July 30, 2017 11:13am Start: 07-30-2017 End: 07-30-2017 take 1 tablet by mouth once daily Norgestimate-Ethinyl Estradiol (Sprintec (28)) 0.25-35 mg-mcg tablet Discontinued 1 TABLET PO daily July 30, 2017 12:00am July 30, 2017 10:13am Start: 07-30-2017 End: 07-30-2017 take 1 tablet by mouth once daily Norgestimate-Ethinyl Estradiol (Sprintec (28)) 0.25-35 mg-mcg tablet Discontinued 1 TABLET PO daily July 30, 2017 1:00am July 30, 2017 11:13am ferrous sulfate 325 mg oral tablet (11 sources) Start: 07-30-2017 End: 03-06-2022 take 1 tablet by mouth three times daily Ferrous Sulfate 325 mg (65 mg iron) tablet Discontinued 325 mg PO THREE TIMES A DAY July 30, 2017 1:00am March 06, 2022 2:01pm Multivitamin,Tx-Iron- Minerals (Complete Multivitamin) tablet (6 sources) Start: 07-30-2017 End: 11-04-2019 Multivitamin,Sa-Yjlb-Qurl rals (Complete Multivitamin) tablet Discontinued 1 {tbl} PO daily July 30, 2017 1:00am November 04, 2019 9:31am multivitamin,tx-iron- minerals tablet (5 sources) Start: 07-30-2017 End: 11-04-2019 take 1 tablet by mouth once daily multivitamin,qd-vlgy-ituj rals tablet Discontinued 1 TABLET PO daily July 30, 2017 12:00am November 04, 2019 8:31am Start: 07-30-2017 End: 11-04-2019 take 1 tablet by mouth once daily multivitamin,yz-mbti-ptzlxgrc tablet Discontinued 1 TABLET PO daily July 30, 2017 1:00am November 04, 2019 9:31am naproxen 250 mg oral tablet (11 sources) Nonsteroidal Anti-inflammatory Drug Start: 01-24-2020 End: 02-03-2020 take 250-500 mg by mouth every eight hours as needed for pain Naproxen 250 MG tablet Discontinued 250 - 500 mg PO EVERY 8 HOURS NEEDED as needed for MILD PAIN 07 07January 24, 2020 12:00am February 03, 2020 12:35pm norethindrone 0.35 mg oral tablet (11 sources) Start: 03-12-2020 End: 10-16-2020 take 1 tablet by mouth once daily Norethindrone (Contraceptive) (Ortho Micronor) 0.35 mg tablet Discontinued 0.35 mg PO DAILY 04 06March 12, 2020 12:00am October 16, 2020 4:50pm start day 1 of menstrual cycle Pnv #79-Lobe-Fecqi Acid-Omega3 30 mg iron-10 mg iron-1 mg capsule (6 sources) Start: 11-04-2019 End: 08-26-2024 Pnv #99-Uypu-Mjtlz Acid-Omega3 30 mg iron-10 mg iron-1 mg capsule Discontinued 1 NMA PO DAILY November 04, 2019 12:00am August 26, 2024 3:02pm Start: 11-04-2019 End: 08-26-2024 Pnv #37-Vmoz-Nrtjh Acid-Omeg a3 30 mg iron-10 mg iron-1 mg capsule Discontinued 1 NMA PO DAILY November 04, 2019 12:00am August 26, 2024 3:02pm Problems Problem Classification Problem Date Documented Da te Episodic/Chronic Bacterial infection; unspecified site (11 sources) Bacteria present; Translations: [Streptococcus, group B, as the cause of diseases classified elsewhere] 03-12-2020 Episodic Comment on above: plan PCN in labor Diabetes or abnormal glucose tolerance complicating ; childbirth; or the puerperium (1 source) Abnormal glucose level; Translations: [Abnormal glucose complicating ] 12-26-2024 Episodic Comment on above: needs 3 hour Immunizations and screening for infectious disease (11 sources) Contact with and (suspected) exposure to other viral communicable diseases; Translations: [Contact with or suspected exposure to other viral communicable disease] 03-06-2022 Episodic Other bone disease and musculoskeletal deformities (20 sources) Segmental and somatic dysfunction; Translations: [Segmental and somatic dysfunction of lumbar region] 06-12-2021 Episodic Other bone disease and musculoskeletal deformities (17 sources) Segmental and somatic dysfunction of lumbar region; Translations: [Nonallopathic lesions, lumbar region] Episodic Other bone disease and musculoskeletal deformities (17 sources) Segmental and somatic dysfunction of thoracic region; Translations: [Nonallopathic lesions, thoracic region] Episodic Other bone disease and musculoskeletal deformities (9 sources) Segmental and somatic dysfunction of cervical region; Translations: [Nonallopathic lesions, cervical region] 09-04-2022 Episodic Other bone disease and musculoskeletal deformities (9 sources) Segmental and somatic dysfunction of sacral region; Translations: [Nonallopathic lesions, sacral region] 09-04-2022 Episodic Other complications of (20 sources) Hemorrhoids in ; Translations: [Hemorrhoids in , unspecified trimester] 09-20-2024 Episodic Other complications of (1 source) Hemorrhoids in , second trimester; Translations: [Hemorrhoids in , second trimester] Onset: 12-26-2024 Episodic Other complications of (1 source) Hemorrhoids in , unspecified trimester; Translations: [Hemorrhoids in , unspecified trimester] Onset: 11-03-2024 Episodic Other liver diseases (11 sources) Elevated liver enzymes level; Translations: [Abnormal levels of other serum enzymes] 06-30-2019 Episodic Other and delivery including normal (20 sources) Normal ; Translations: [Encounter for supervision of normal first , unspecified trimester] Onset: 11-22-2024 Episodic Comment on above: PRR LEONARDA 01/29/20 22 girl Betsy BF- Everardo (River-3) PRR,, LEONARDA 5, PC Betsy, Katelynn, BF Everardo PRR , LEONARDA 3 PC Betsy, Boyfriend- Everardo (River-6) declined NIPT & Brewer ier testing declined genetic, nt d, and carrier testing. Normal anatomy. Covid testing negative GBS neg, anatomy nl, declined genetic & carrier testing, afp. 07/16 nl GCT PRR,, LEONARDA , PC Betsy, Katelynn, BF Everardo declined NIPT & Brewer ier testing-normal anatomy. 13%-AC 23% Other screening for suspected conditions (not mental disorders or infectious disease) (1 source) Encounter for other screening follow-up; Translations: [Encounter for other screening follow-up] Onset: 10-07-2024 Episodic Polyhydramnios and other problems of amniotic cavity (11 sources) Amniotic membrane finding; Translations: [Rupture of membranes with clear amniotic fluid] 03-12-2020 Episodic Residual codes; unclassified (1 source) 25 weeks gestation of ; Translations: [25 weeks gestation of ] Onset: 12-26-2024 Episodic Residual codes; unclassified (1 source) 18 weeks gestation of ; Translations: [18 weeks gestation of ] Onset: 11-03-2024 Episodic Spondylosis; intervertebral disc disorders; other back problems (20 sources) Backache; Translations: [Dorsalgia, unspecified] Episodic Results Test Name Value Interpretation Reference Range Facility Absolute lymphocyte countOrd ered By: Qian Phelps on 12-26-2024 Lymphocytes Auto (Unsp spec) [#/Vol] 1.93 10*3/uL 0.83-4.51 [facility] Absolute neutrophil countOrd ered By: Qian Phelps on 12-26-2024 Neutrophils (Bld) [#/Vol] 4.6 10*3/uL 2.0-7.7 [facility] Automated lymphocyte count a s percentage of total leukocytesOrdered By: Qian Phelps on 12-26-2024 Lymphocytes/100 WBC Auto (Unsp spec) 26.4 % 19-41 [facility] Basophil percentageOrdered B y: Qian Phelps on 12-26-2024 Basophils/100 WBC (Bld) 0.4 % 0-1 [facility] CBC W/Diff, Automatedon 12-07 Absolute Lymph 1.93 X10 3/uL Normal 0.83-4.51 [facility] Comment on above: Performed By: #### L 100.0100, L3890.6006, L509.8002, L501.0250 ####[facility] [address] [place], [address] Absolute Neut 4.6 X10 3/uL Normal 2.0-7.7 [facility] Comment on above: Performed By: #### L 100.0100, L3890.6006, L509.8002, L501.0250 ####[facility] [address] [place], [address] Basophils/100 WBC (Bld) 0.4 % Normal 0-1 [facility] Comment on above: Performed By: #### L 100.0100, L3890.6006, L509.8002, L501.0250 ####[facility] [address] [place], [address] Eosinophils/100 WBC (Bld) 1.6 % Normal 0-5 [facility] Comment on above: Performed By: #### L 100.0100, L3890.6006, L509.8002, L501.0250 ####[facility] [address] [place], [address] Erythrocyte distribution width (RBC) [Ratio] 13.6 % Normal 11.6-14.6 [facility] Comment on above: Performed By: #### L 100.0100, L3890.6006, L509.8002, L501.0250 ####[facility] [address] [place], [address] Hematocrit (Bld) [Volume fraction] 34.1 % Low 37-47 [facility] Comment on above: Performed By: #### L 100.0100, L3890.6006, L509.8002, L501.0250 ####[facility] [address] [place], [address] Hemoglobin (Bld) [Mass/Vol] 11.2 g/dL Low 12.0-15.0 [facility] Comment on above: Performed By: #### L 100.0100, L3890.6006, L509.8002, L501.0250 ####[facility] [address] [place], [address] IG% 1.100 High 0.0-0.9 [facility] Comment on above: Result Comment: IG% - Immature Granulocytes (promyelocytes, myelocytes and metamyelocytes) > 1% indicates that a LEFT SHIFT is Present. Performed By: #### L 100.0100, L3890.6006, L509.8002, L501.0250 ####[facility] [address] [place], [address] Lymphocytes/100 WBC (Bld) 26.4 % Normal 19-41 [facility] Comment on above: Performed By: #### L 100.0100, L3890.6006, L509.8002, L501.0250 ####[facility] [address] [place], [address] MCH (RBC) [Entitic mass] 29.5 pg Normal 27.0-32.0 [facility] Comment on above: Performed By: #### L 100.0100, L3890.6006, L509.8002, L501.0250 ####[facility] [address] [place], [address] MCHC (RBC) [Mass/Vol] 32.8 g/dL Normal 32-36 [facility] Comment on above: Performed By: #### L 100.0100, L3890.6006, L509.8002, L501.0250 ####[facility] [address] [place], [address] MCV (RBC) [Entitic vol] 89.7 fL Normal 81-99 [facility] Comment on above: Performed By: #### L 100.0100, L3890.6006, L509.8002, L501.0250 ####[facility] [address] [place], [address] Monocytes/100 WBC (Bld) 7.9 % Normal 0-10 [facility] Comment on above: Performed By: #### L 100.0100, L3890.6006, L509.8002, L501.0250 ####[facility] [address] [place], [address] Neutrophils/100 WBC (Bld) 62.6 % Normal 47-70 [facility] Comment on above: Performed By: #### L 100.0100, L3890.6006, L509.8002, L501.0250 ####[facility] [address] [place], [address] Nucleated RBC (Bld) [#/Vol] 0 10*3/uL Normal 0-5 [facility] Comment on above: Performed By: #### L 100.0100, L3890.6006, L509.8002, L501.0250 ####[facility] [address] [place], [address] Platelet mean volume (Bld) [Entitic vol] 10.0 fL Normal 6.2-12.0 [facility] Comment on above: Performed By: #### L 100.0100, L3890.6006, L509.8002, L501.0250 ####[facility] [address] [place], [address] Platelets (Bld) [#/Vol] 225 10*3/uL Normal 150-450 [facility] Comment on above: Performed By: #### L 100.0100, L3890.6006, L509.8002, L501.0250 ####[facility] [address] [place], [address] RBC (Bld) [#/Vol] 3.80 10*6/uL Low 4.2-5.4 [facility] Comment on above: Performed By: #### L 100.0100, L3890.6006, L509.8002, L501.0250 ####[facility] [address] [place], [address] RDW SD 44.5 fl High 35.1-43.9 [facility] Comment on above: Performed By: #### L 100.0100, L3890.6006, L509.8002, L501.0250 ####[facility] [address] [place], [address] WBC (Bld) [#/Vol] 7.3 10*3/uL Normal 4.4-11.0 [facility] Comment on above: Performed By: #### L 100.0100, L3890.6006, L509.8002, L501.0250 ####[facility] [address] [place], [place], [address] Eosinophil percentageOrdered By: Qian Sousatings on 12-26-2024 Eosinophils/100 WBC (Bld) 1.6 % 0-5 [facility] Erythrocyte distribution wid th ratioOrdered By: Qianrandi Millers on 12-26-2024 Erythrocyte distribution width (RBC) [Ratio] 13.6 % 11.6-14.6 [facility] Erythrocyte distribution wid th standard deviationOrdered By: Qian [place] on 12-26-2024 Erythrocyte distribution width (RBC) [Ratio] 44.5 fl High 35.1-43.9 [facility] Glucose Challenge Gest 1H 50 melonie 12-26-2024 GLU GEST 50g 1H 138 mg/dL Normal 70-140 [facility] Comment on above: Performed By: #### L 100.0100, L3890.6006, L509.8002, L501.0250 ####[facility] [address] [place], [address] Glucose measurement at 2 janet rs post-dose gestational glucose tolerance testOrdered By: Qian Phelps on 12-26-2024 Glucose [Mass/Vol] 138 mg/dL 70-140 [facility] HIVon 12-26-2024 HIV Non-Reactive Normal Nonreactive [facility] Comment on above: Result Comment: Non- Reactive Reactive Repeatedly reactive samples must be confirmed according to CDC recommended confirmatory algorithms. The subresults for either HIVAG or AHIV can be used as an aid in the selection of the confirmation algorithm for reactive samples. Send out specimens with Reactive results to [facility] for confirmation. Order the HIV antibody detection and differentiation: lc#[id number] Performed By: #### L 100.0100, L3890.6006, L509.8002, L501.0250 ####[facility] [address] [place], [address] Hematocrit Auto (Bld) [Volum e fraction]Ordered By: Qian Phelps on 12-26-2024 Hematocrit (Bld) [Volume fraction] 34.1 % Low 37-47 [facility] Hemoglobin measurementOrdere d By: Qian Phelps on 12-26-2024 Hemoglobin (Bld) [Mass/Vol] 11.2 g/dL Low 12.0-15.0 [facility] Immature granulocytes/100 WB C Auto (Bld)Ordered By: Qian Phelps on 12-26-2024 Immature granulocytes/100 WBC (Bld) 1.100 % High 0.0-0.9 [facility] Comment on above: IG% - Immature Granu locytes (promyelocytes, myelocytes and metamyelocytes) > 1% indicates that a LEFT SHIFT is Present. MCV (mean corpuscular volume ) determinationOrdered By: Qian Phelps on 12-26-2024 MCV (RBC) [Entitic vol] 89.7 fL 81-99 [facility] Mean corpuscular hemoglobin (MCH) determinationOrdered By: Qian Phelps on 12-26-2024 MCH (RBC) [Entitic mass] 29.5 pg 27.0-32.0 [facility] Mean corpuscular hemoglobin concentration (MCHC) determinationOrdered By: Qian Phelps on 12-26-2024 MCHC (RBC) [Mass/Vol] 32.8 g/dL 32-36 [facility] Mean platelet volume determi nationOrdered By: Qian Phelps on 12-26-2024 Platelet mean volume (Bld) [Entitic vol] 10.0 fL 6.2-12.0 [facility] Monocyte percentageOrdered B y: Qian Phelps on 12-26-2024 Monocytes/100 WBC (Bld) 7.9 % 0-10 [facility] Neutrophil percentageOrdered By: Qianrandi Phelps on 12-26-2024 Neutrophils/100 WBC (Bld) 62.6 % 47-70 [facility] No Panel InformationOrdered By: Qian Phelps on 12-26-2024 HIV (1&2) Antibody Non-Reactive Nonreactive [facility] Comment on above: Non-ReactiveReactive Repeatedly reactive samples must be confirmed according to CDC recommended confirmatory algorithms. The subresults for either HIVAG or AHIV can be used as an aid in the selection of the confirmation algorithm for reactive samples.Send out specimens with Reactive results to [facility] for confirmation.Order the HIV antibody detection and differentiation: #[id number] Nucleated red blood cell per centageOrdered By: Qian Phelps on 12-26-2024 Nucleated RBC/100 WBC (Bld) [Ratio] 0 % 0-5 [facility] Avionics System Engineer Office Visit Reporton 12-26-2024 Avionics System Engineer Office Visit Report [facility]'s [address], [address] [place] [address] OFFICE VISIT Date of Service: 12/26/24 MR#: [id number] Acct: [id number] Name: IVETTE FINNEY Rep #: [id number] : 1990 Provider: TIMBO Vee ams Age/Sex: 34/F Location: [facility] Status: Signed Intake Vital Signs 11/03/24 10:08 12/01/24 09:36 12/26/24 14:31 Height 5 ft 10 in 5 ft 10 in 5 ft 10 in Weight: 195 lb 4 oz BMI 28.0 BP 120/72 Intake Visit Reasons: 26wk ob/glucose Chief Complaint: 26wk OB/Glucose Machine Bookkeeper Required: No Is patient in pain?: No Allergies No Known Allergies Allergy (Verified 12/26/24 14:30) Medications ???Medication ???Instructions ???Recorded ???Confirmed ???Type multivitamin no.47-iron fum 27 cap PO 08/26/24 12/26/24 History mg-folate no.1 1 mg-dha 300 mg capsule (PNV-DHA) Last Menstrual Period: 07/08/24 : No PFSH PFSH Medical History Segmental and somatic dysfunction of cervical region Segmental and somatic dysfunction of sacral region Back pain Segmental and somatic dysfunction of lumbar region Segmental and somatic dysfunction of thoracic region Surgical History [place] teeth extracted Family History Father CAD (coronary artery disease) Social History adopted: No household members: significant other and children housing: house number of children: 2 current occupational status: employed 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/hazards: No pets and animals: Yes pets and animals: dog(s) history of recent travel: No sexually active: Yes Smoking Status: Never smoker second hand exposure: No alcohol intake: former details: social- not while substance use type: does not use well-balanced diet: daily or most days caffeine: Yes Type: coffee Number of servings: 1 eating out: rarely or never during the past year weight has: remained stable what type of physical activity do you participate in: other details: [employer] Classes frequency: 1-2 times per week duration: 60-90 minutes/day jayesh/church: Denominational seatbelt use: always do you feel safe at home: Yes 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 Date Name GA/Weeks Outcome Route Bth Weight Gen Labor Lgth Anesthesia Del Locatn Provider FOB 01/24/20 Betsy 39 live - full term 7#14oz Female none [facility] Dr. Adam Mcgee 10/09/22 Katelynn 39 live - full term 9lbs Female none [facility] Dr. Stephani Mcgee HPI 26wk ob/glucose Details: IVETTE FINNEY is a 34 year old who presents for routine OB visit. OB Visit LEONARDA Calculator Estimated Delivery Date Method Current WG Current Estimate 04/04/25 Ultrasound #1 25w 6d Other Estimates 04/14/25 LMP (Certain) 24w 3d Expected Delivery Route/Plan Labor Preferences- CB/BF classes: [] labor support person: [] labor intervention preferences: [] pain management options preferred: [] cut cord/dad catch: [] : [] PP control planned: [] discussed possible routes of delivery and associated risks: [] special requests: [] Specific Issue/Plans Covid status: [] Flu vaccine: [] Tdap vaccine: [] Rhogam: [] LARC form signed: [] Problem list reviewed and updated with the most current plan of care details and appropriate orders placed. Relevant counseling for the gestational age provided. Continue routine care and follow up unless otherwise noted in visit notes/problem list details Initial Weight: Not Recorded Date -???-???-???-???-???-?? ?-???-???-???-???-???-? ??- EGA Weight BP Urine Prot -???-???-???-???-???-?? ?-???-???-???-???-???-? ??- Glucose FHR FuHt Pres Dilation -???-???-???-???-???-?? ?-???-???-???-???-???-? ??- Effaced St Visit Note 09/09/24 -???-???-???-???-???-?? ?-???-???-???-???-???-? ??- 10w 3d 176 lb 8 oz 128/77 -???-???-???-???-???-?? ?-???-???-???-???-???-? ??- 168 -???-???-???-???-???-?? ?-???-???-???-???-???-? ??- JV- CRL is o ff by 10 days from LMP. new LEONARDA given. declines nipt. has complaint of hemorrhoids. 10/07/24 -???-???-???-???-???-?? ?-???-???-???-???-???-? ??- 14w 3d 180 lb 4 oz 111/66 Negative -???-???-???-???-???-?? ?-???-???-???-???-???-? ??- Negative 156 -???-???-???-???-???-?? ?-???-???-???-???-???-? ??- KW- no vb/cr amping. Declines AFP. anatomy US ord (more content not included)... [facility] Platelet countOrdered By: Mo morales Lenin on 12-26-2024 Platelets (Bld) [#/Vol] 225 10*3/uL 150-450 [facility] RBC Auto (Bld) [#/Vol]Ordere d By: Qian Lenin on 12-26-2024 RBC (Bld) [#/Vol] 3.80 10*6/uL Low 4.2-5.4 [facility] Syphilis Antibodieson 2024 Syphilis Abs Non-Reactive Normal Nonreactive [facility] Comment on above: Performed By: #### L 100.0100, L3890.6006, L509.8002, L501.0250 ####[facility] [id number] [place], [address] White blood cell (WBC) count Ordered By: Qianrandi Phelps on 12-26-2024 WBC (Bld) [#/Vol] 7.3 10*3/uL 4.4-11.0 [facility] - Chemistry and C hemistry - challengeOrdered By: Qian Phelps on 12-01-2024 Glucose Ql (U) Negative [facility] - UrinalysisOrder ed By: Qian Phelps on 12-01-2024 Protein Ql (U) Negative [facility] Avionics System Engineer Office Visit Reporton 12-01-2024 Avionics System Engineer Office Visit Report [facility]'[address], [address] [place] [address] OFFICE VISIT Date of Service: 12/01/24 MR#: [id number] Acct: [id number] Name: IVETTE FINNEY Rep #: [id number] : 1990 Provider: HENOK mancia Age/Sex: 34/F Location: [facility] Status: Signed Intake Vital Signs 09/09/24 08:48 11/03/24 10:08 12/01/24 09:36 Height 5 ft 5 in 5 ft 10 in 5 ft 10 in Weight: 192 lb BMI 27.5 BP 120/60 Intake Visit Reasons: 22wk ob Chief Complaint: 22 Week OB Machine Bookkeeper Required: No Is patient in pain?: No Allergies No Known Allergies Allergy (Verified 12/01/24 09:39) Medications ???Medication ???Instructions ???Recorded ???Confirmed ???Type multivitamin no.47-iron fum 27 cap PO 08/26/24 12/01/24 History mg-folate no.1 1 mg-dha 300 mg capsule (PNV-DHA) Last Menstrual Period: 07/08/24 Zika: Zika virus screening: Negative : No PFSH PFSH Medical History Segmental and somatic dysfunction of cervical region Segmental and somatic dysfunction of sacral region Back pain Segmental and somatic dysfunction of lumbar region Segmental and somatic dysfunction of thoracic region Surgical History [place] teeth extracted Family History Father CAD (coronary artery disease) Social History adopted: No household members: significant other and children housing: house number of children: 2 current occupational status: employed 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/hazards: No pets and animals: Yes pets and animals: dog(s) history of recent travel: No sexually active: Yes Smoking Status: Never smoker second hand exposure: No alcohol intake: former details: social- not while substance use type: does not use well-balanced diet: daily or most days caffeine: Yes Type: coffee Number of servings: 1 eating out: rarely or never during the past year weight has: remained stable what type of physical activity do you participate in: other details: [facility] Classes frequency: 1-2 times per week duration: 60-90 minutes/day jayesh/church: Denominational seatbelt use: always do you feel safe at home: Yes additional social 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 Date Name GA/Weeks Outcome Route Bth Weight Infant Gen Labor Lgth Anesthesia Del Locatn Provider FOB 01/24/20 Betsy 39 live - full term 7#14oz Female none [facility] Dr. Adam Mcgee 10/09/22 Katelynn 39 live - full term 9lbs Female none [facility] Dr. Stephani Mcgee HPI 22wk ob Details: IVETTE FINNEY is a 34 year old who presents for routine OB visit. OB Visit LEONARDA Calculator Estimated Delivery Date Method Current WG Current Estimate 04/04/25 Ultrasound #1 22w 2d Other Estimates 04/14/25 LMP (Certain) 20w 6d Expected Delivery Route/Plan Labor Preferences- CB/BF classes: [] labor support person: [] labor intervention preferences: [] pain management options preferred: [] cut cord/dad catch: [] : [] PP control planned: [] discussed possible routes of delivery and associated risks: [] special requests: [] Specific Issue/Plans Covid status: [] Flu vaccine: [] Tdap vaccine: [] Rhogam: [] LARC form signed: [] Problem list reviewed and updated with the most current plan of care details and appropriate orders placed. Relevant counseling for the gestational age provided. Continue routine care and follow up unless otherwise noted in visit notes/problem list details Initial Weight: Not Recorded Date -???-???-???-???-???-?? ?-???-???-???-???-???-? ??- EGA Weight BP Urine Prot -???-???-???-???-???-?? ?-???-???-???-???-???-? ??- Glucose FHR FuHt Pres Dilation -???-???-???-???-???-?? ?-???-???-???-???-???-? ??- Effaced St Visit Note 09/09/24 -???-???-???-???-???-?? ?-???-???-???-???-???-? ??- 10w 3d 176 lb 8 oz 128/77 -???-???-???-???-???-?? ?-???-???-???-???-???-? ??- 168 -???-???-???-???-???-?? ?-???-???-???-???-???-? ??- JV- CRL is o ff by 10 days from LMP. new LEONARDA given. declines nipt. has complaint of hemorrhoids. 10/07/24 -???-???-???-???-???-?? ?-???-???-???-???-???-? ??- 14w 3d 180 lb 4 oz 111/66 Negative -???-???-???-???-???-?? ?-???-???-???-???-???-? ??- Negative 156 -???-???-???-???-???-?? ?-???-???-???-???-???-? ??- KW- no vb/cr (more content not included)... [facility] OB Anatomy w/ Transvaginalon 11-16-2024 OB Anatomy w/ Transvaginal [facility] [address] [place] [address] OB Anatomy w/ Transvaginal MR#: [id number] Acct: [id number] Name: IVETTE FINNEY Rep #: [id number] : 1990 F 34 From: Pratik rodriguez MD PCP: BILLY Carl, DISEASE INTERVENTION SPECIALIST-C Status: REG CLI Study: OB Anatomy w/ Transvaginal Date of Exam: 11/16 Exam# [id number] Ordering Dr: Jossy Umaña CNM PROCEDURE: OB ANATOMY W/ TRANSVAGINAL 11/16/2024 REASON FOR EXAM: ANATOMY SCAN 18-20WKS TECHNIQUE: High resolution obstetric ultrasound performed using a 2D transducer. Standard views obtained, including biometry, anatomy survey, and Doppler studies. COMPARISON: None FINDINGS Number: 1 Position: Breech Placental Position: Posterior Placental Abnormalities: No evidence of previa. DIMENSIONS: Biparietal Diameter: 4.4 cm: 19 weeks and 1 day: 14 percentile/ Head Circumference: 16.2 cm: 19 weeks and 0 days: 5th percentile/ Abdominal Circumference: 14.1 cm: 19 weeks and 3 days: 23rd percentile/ Femur Length: 3 cm: 19 weeks and 3 days: 16 percentile/ ESTIMATED WEIGHT: 289 g plus/-43 g ESTIMATED WEIGHT PERCENTILE (24+ weeks): 13 ESTIMATED GESTATIONAL AGE: Baseline: 20 weeks and 1 day By Ultrasound: 19 weeks and 2 days ESTIMATED DATE OF DELIVERY: Baseline: March 27, 2025 By Ultrasound: April 10, 2025 BIOPHYSICAL ASSESSMENT: Amniotic Fluid Volume: 2.8 cm Amniotic Fluid Index: Within normal limits. Cardiac Motion: 151 beats per minute (average) Trunk and Limb Motion: Present. MATERNAL ANATOMY: Adnexa: Neither maternal ovary is successfully identified. Cervical Length (if measured): 4.8 cm ANATOMY: Spine: Unremarkable Cranium: Unremarkable Cerebellum: Unremarkable Cisterna Magna: Unremarkable Cavum Septum Pellucidi: Unremarkable Lateral Ventricles: Unremarkable Choroid Plexus: Unremarkable Midline Falx: Unremarkable Nuchal Fold: Unremarkable Heart: Unremarkable Stomach: Unremarkable Kidneys: Unremarkable Bladder: Unremarkable Umbilical Cord: Three-vessel cord Normal placental insertion. cord insertion not seen well. Extremities: Unremarkable US/OB Anatomy w/ Transvaginal IMPRESSION: Single live intrauterine gestation with a mean gestational age of 19 weeks and 2 days. The head circumference measures 5th percentile. Reading Location: [id number] CC: TIMBO Umaña; [facility] DISEASE INTERVENTION SPECIALIST-C Hilda Jackson Allergist/Immunologist: Signed Normal [facility] - Chemistry and C hemistry - challengeOrdered By: Mariposa Cleaning on 11-03-2024 Glucose Ql (U) Negative [facility] - UrinalysisOrder ed By: Mariposa Cleaning on 11-03-2024 Protein Ql (U) Negative [facility] Avionics System Engineer Office Visit Reporton 11-03-2024 Avionics System Engineer Office Visit Report [facility]'s [address], [address] [place] [address] OFFICE VISIT Date of Service: 11/03/24 MR#: [id number] Acct: [id number] Name: IVETTE FINNEY Rep #: [id number] : 1990 Provider: Dr. Mariposa lewis MD Age/Sex: 34/F Location: [facility] [place] Status: Signed Intake Vital Signs 09/09/24 08:48 10/07/24 09:43 11/03/24 10:08 Height 5 ft 5 in 5 ft 10 in 5 ft 10 in Weight: 185 lb 2 oz BMI 26.5 BP 120/57 L Intake Visit Reasons: 18wk ob Machine Bookkeeper Required: No Is patient in pain?: No Feel stressed/tense/nervous/ anxious/difficulty sleeping: not at all Allergies No Known Allergies Allergy (Verified 11/03/24 10:09) Medications ???Medication ???Instructions ???Recorded ???Confirmed ???Type multivitamin no.47-iron fum 27 cap PO 08/26/24 11/03/24 History mg-folate no.1 1 mg-dha 300 mg capsule (PNV-DHA) Last Menstrual Period: 07/08/24 Zika: Zika virus screening: Negative : No PFSH PFSH Medical History Segmental and somatic dysfunction of cervical region Segmental and somatic dysfunction of sacral region Back pain Segmental and somatic dysfunction of lumbar region Segmental and somatic dysfunction of thoracic region Surgical History [place] teeth extracted Family History Father CAD (coronary artery disease) Social History adopted: No household members: significant other and children housing: house number of children: 2 current occupational status: employed 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/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: No pets and animals: Yes pets and animals: dog(s) history of recent travel: No sexually active: Yes Smoking Status: Never smoker second hand exposure: No alcohol intake: former details: social- not while substance use type: does not use well-balanced diet: daily or most days caffeine: Yes Type: coffee Number of servings: 1 eating out: rarely or never during the past year weight has: remained stable what type of physical activity do you participate in: other details: [facility] Classes frequency: 1-2 times per week duration: 60-90 minutes/day jayesh/church: Denominational seatbelt use: always do you feel safe at home: Yes 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 Date Name GA/Weeks Outcome Route Bth Weight Gen Labor Lgth Anesthesia Del Locatn Provider FOB 01/24/20 Betsy 39 live - full term 7#14oz Female none [facility] Dr. Adam Mcgee 10/09/22 Katelynn 39 live - full term 9lbs Female none [facility] Dr. Stephani Mcgee HPI 18wk ob Details: IVETTE FINNEY is a 34 year old who presents for routine OB visit. OB Visit LEONARDA Calculator Estimated Delivery Date Method Current WG Current Estimate 04/04/25 Ultrasound #1 18w 2d Other Estimates 04/14/25 LMP (Certain) 16w 6d Expected Delivery Route/Plan Labor Preferences- CB/BF classes: [] labor support person: [] labor intervention preferences: [] pain management options preferred: [] cut cord/dad catch: [] : [] PP control planned: [] discussed possible routes of delivery and associated risks: [] special requests: [] Specific Issue/Plans Covid status: [] Flu vaccine: [] Tdap vaccine: [] Rhogam: [] LARC form signed: [] Problem list reviewed and updated with the most current plan of care details and appropriate orders placed. Relevant counseling for the gestational age provided. Continue routine care and follow up unless otherwise noted in visit notes/problem list details Initial Weight: Not Recorded Date -???-???-???-???-???-?? ?-???-???-???-???-???-? ??- EGA Weight BP Urine Prot -???-???-???-???-???-?? ?-???-???-???-???-???-? ??- Glucose FHR FuHt Pres Dilation -???-???-???-???-???-?? ?-???-???-???-???-???-? ??- Effaced St Visit Note 09/09/24 -???-???-???-???-???-?? ?-???-???-???-???-???-? ??- 10w 3d 176 lb 8 oz 128/77 -???-???-???-???-???-?? ?-???-???-???-???-???-? ??- 168 -???-???-???-???-???-?? ?-???-???-???-???-???-? ??- JV- CRL is o ff by 10 days from LMP. new LEONARDA given. declines nipt. has complaint of hemorrhoids. 10/07/24 -???-???-???-???-???-?? ?-???-???-???-???-???-? ??- 14w 3d 180 lb 4 oz 111/66 Negative -???-???-???-???-???-?? ?-???-???-???-???-???-? ??- Negative 156 -???-???-???-???-???-?? ? (more content not included)... Normal [facility] - Chemistry and C hemistry - challengeOrdered By: Jossy Umaña on 10-07-2024 Glucose Ql (U) Negative [facility] - UrinalysisOrder ed By: Jossy Umaña on 10-07-2024 Protein Ql (U) Negative [facility] Avionics System Engineer Office Visit Reporton 10-07-2024 Avionics System Engineer Office Visit Report [facility]'s [address], [address] [place] [address] OFFICE VISIT Date of Service: 10/07/24 MR#: [id number] Acct: [id number] Name: IVETTE FINNEY Rep #: [id number] : 1990 Provider: TIMBO Vee ams Age/Sex: 34/F Location: [facility] Status: Signed Intake Vital Signs 08/11/24 15:09 10/03/24 08:25 10/07/24 09:24 10/07/24 09:43 Height 5 ft 5 in 5 ft 5 in 5 ft 5 in 5 ft 10 in Weight: 180 lb 4 oz BMI 29.9 BP 111/66 Intake Visit Reasons: 14wk ob Chief Complaint: 14wk ob Machine Bookkeeper Required: No Is patient in pain?: No Allergies No Known Allergies Allergy (Verified 10/07/24 09:22) Medications ???Medication ???Instructions ???Recorded ???Confirmed ???Type multivitamin no.47-iron fum 27 cap PO 08/26/24 10/07/24 History mg-folate no.1 1 mg-dha 300 mg capsule (PNV-DHA) Last Menstrual Period: 07/08/24 : No PFSH PFSH Medical History Segmental and somatic dysfunction of cervical region Segmental and somatic dysfunction of sacral region Back pain Segmental and somatic dysfunction of lumbar region Segmental and somatic dysfunction of thoracic region Surgical History [place] teeth extracted Family History Father CAD (coronary artery disease) Social History adopted: No household members: significant other and children housing: house number of children: 2 current occupational status: employed 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/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: No pets and animals: Yes pets and animals: dog(s) history of recent travel: No sexually active: Yes Smoking Status: Never smoker second hand exposure: No alcohol intake: former details: social- not while substance use type: does not use well-balanced diet: daily or most days caffeine: Yes Type: coffee Number of servings: 1 eating out: rarely or never during the past year weight has: remained stable what type of physical activity do you participate in: other details: [facility] Classes frequency: 1-2 times per week duration: 60-90 minutes/day jayesh/church: Denominational seatbelt use: always do you feel safe at home: Yes 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 Date Name GA/Weeks Outcome Route Bth Weight Infant Gen Labor Lgth Anesthesia Del Locatn Provider FOB 01/24/20 Betsy 39 live - full term 7#14oz Female none [facility] Dr. Adam Mcgee 10/09/22 Katelynn 39 live - full term 9lbs Female none [facility] Dr. Stephani Mcgee HPI 14wk ob Details: IVETTE FINNEY is a 34 year old who presents for routine OB visit. OB Visit LEONARDA Calculator Estimated Delivery Date Method Current WG Current Estimate 04/04/25 Ultrasound #1 14w 3d Other Estimates 04/14/25 LMP (Certain) 13w 0d Expected Delivery Route/Plan Labor Preferences- CB/BF classes: [] labor support person: [] labor intervention preferences: [] pain management options preferred: [] cut cord/dad catch: [] : [] PP control planned: [] discussed possible routes of delivery and associated risks: [] special requests: [] Specific Issue/Plans Covid status: [] Flu vaccine: [] Tdap vaccine: [] Rhogam: [] LARC form signed: [] Problem list reviewed and updated with the most current plan of care details and appropriate orders placed. Relevant counseling for the gestational age provided. Continue routine care and follow up unless otherwise noted in visit notes/problem list details Initial Weight: Not Recorded Date -???-???-???-???-???-?? ?-???-???-???-???-???-? ??- EGA Weight BP Urine Prot -???-???-???-???-???-?? ?-???-???-???-???-???-? ??- Glucose FHR FuHt Pres Dilation -???-???-???-???-???-?? ?-???-???-???-???-???-? ??- Effaced St Visit Note 09/09/24 -???-???-???-???-???-?? ?-???-???-???-???-???-? ??- 10w 3d 176 lb 8 oz 128/77 -???-???-???-???-???-?? ?-???-???-???-???-???-? ??- 168 -???-???-???-???-???-?? ?-???-???-???-???-???-? ??- JV- CRL is o ff by 10 days from LMP. new LEONARDA given. declines nipt. has complaint of hemorrhoids. 10/07/24 -???-???-???-???-???-?? ?-???-???-???-???-???-? ??- 14w 3d 180 lb 4 oz 111/66 Negative -???-???-???-???-???-?? ?-???-???-???-???-???-? ??- Negative 156 -???-???-???-???-???-?? ?-???-???-???-???-???-? ??- KW- no vb/cr amping. Declines AFP. anatomy US or (more content not included)... Normal [facility] Surgery Visit Reporton 10-03 Surgery Visit Report [facility] [address] [place] [address] OFFICE VISIT Date of Service: 10/03/24 MR#: [id number] Acct: [id number] Name: IVETTE FINNEY Rep #: [id number] : 1990 Provider: Dr. Robyn hill MD Age/Sex: 34/F Location: [facility] Status: Signed Intake Vital Signs 09/09/24 08:48 10/03/24 08:25 Height 5 ft 5 in 5 ft 5 in Weight: 181 lb BMI 30.1 BP 118/74 Blood Pressure Location Rt brachial Position Sitting Pulse 73 Pulse Source Monitor Pulse Oximetry (%) 100 Oxygen Delivery Method room air Intake Visit Reasons: HEMORRHOIDS Chief Complaint: hemorrhoids Is patient in pain?: No Allergies No Known Allergies Allergy (Verified 10/03/24 08:27) Medications ???Medication ???Instructions ???Recorded ???Confirmed ???Type multivitamin no.47-iron fum 27 cap PO 08/26/24 10/03/24 History mg-folate no.1 1 mg-dha 300 mg capsule (PNV-DHA) PFSH Medical History Segmental and somatic dysfunction of cervical region Segmental and somatic dysfunction of sacral region Back pain Segmental and somatic dysfunction of lumbar region Segmental and somatic dysfunction of thoracic region Surgical History [place] teeth extracted Family History Father CAD (coronary artery disease) Social History adopted: No household members: significant other and children housing: house number of children: 2 current occupational status: employed 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/hazards: No pets and animals: Yes pets and animals: dog(s) history of recent travel: No sexually active: Yes Smoking Status: Never smoker second hand exposure: No alcohol intake: former details: social- not while substance use type: does not use well-balanced diet: daily or most days caffeine: Yes Type: coffee Number of servings: 1 eating out: rarely or never during the past year weight has: remained stable what type of physical activity do you participate in: other details: [employer] Classes frequency: 1-2 times per week duration: 60-90 minutes/day jayesh/church: Denominational seatbelt use: always do you feel safe at home: Yes additional social history: [employer]IANNE 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 Patient states they are painful even with sitting. Patient currently 13 weeks with her third child. Patient denies constipation states she has bowel moods 1-2 times a day which are soft. Patient had currently tried wtuj-xmt-sufcxly Preparation H and Tucks but is not having much relief. Patient does have occasional bleeding with these hemorrhoids as well. ROS General General: No weight change, appetite, fatigue, colon cancer or breast cancer HEENT HEENT: Yes eye surgery; No difficulty swallowing, eye injury, swollen glands or hoarseness Endo Endocrine: No thyroid disease, diabetes mellitus, thyroid cancer, Hair loss, heat intolerance or cold intolerance Skin Skin: No rash or changing moles Musc Musculoskeletal: No back problems, arthritis, rheumatoid arthritis, gout or joint pain Cardio Cardiovascular: No murmur, pacemaker, heart disease, atrial fibrillation, high blood pressure, heart attack, heart stent, palpitations, shortness of breath with exertion or chest pain Psych Psychiatric: No depression, anxiety or hearing voices Resp Respiratory: No shortness of breath, No sleep apnea, No cough, No COPD, No asthma, No emphysema and No wheezing Gastro Gastrointestinal: No abdominal pain, Yes nausea or vomiting, No diarrhea, No constipation, Yes blood in stool, No acid reflux, Yes hemorrhoids, No ulcers, No gallbladder problem and No black,tarry stools Additional Details: Nausea d/t Roc Hematologic: No blood thinners, No blood disorders, No bleeding, No anemia and No blood clots Neuro Neurologic: No numbness and No tingling Exam Const General: cooperative, healthy appearing, comfortable and no acute distress HENID Head: normocephalic and atraumatic Neck Neck: supple Resp Effort Inspection: normal respiratory effort Cardio Rate: regular rate GI Palpation: soft and nontender Other: Rectal inspection external residual hemorrhoidal tissue, DWAYNE internal hemorrhoids, no gross bleeding, no masses Skin General: no rashes or lesions noted Neuro General: CN's II-XI intact bilaterally Extrem General: normal to inspection Psych Mental Status: mental status grossly normal Attitude: cooperative Assessment and Plan Assessment and Plan (1) He (more content not included)... Normal [facility] Chlamydia/GC KAITY aptimaon CHLAMY,NUC ACID Negative Normal Negative [facility] Comment on above: Performed By: #### M 100.2200, L7000.1800 ####[facility] [address] [place], [place], [id number] GC BY NUC ACID Negative Normal Negative [facility] Comment on above: Result Comment: Perf ormed at: =G - [facility] [address] [id number] Storeroom Attendant: Kenna Sibley MD, Phone: [phone] Performed By: #### M 100.2200, L7000.1800 ####[facility] [address] [place], [address] Urine Cultureon 09-10-2024 URC Culture exhibits no growth. Normal [facility] Comment on above: Performed By: #### M 100.2200, L7000.1800 ####[facility] [address] [place], [place], [address] Absolute lymphocyte countOrd ered By: Nicolle Perez on 09-09-2024 Lymphocytes Auto (Unsp spec) [#/Vol] 1.99 10*3/uL 0.83-4.51 [facility] Absolute neutrophil countOrd ered By: Nicolle Perez on 09-09-2024 Neutrophils (Bld) [#/Vol] 2.9 10*3/uL 2.0-7.7 [facility] Automated lymphocyte count a s percentage of total leukocytesOrdered By: Nicolle Perez on 09-09-2024 Lymphocytes/100 WBC Auto (Unsp spec) 35.3 % 19-41 [facility] Basophil percentageOrdered B y: Nicolle Perez on 09-09-2024 Basophils/100 WBC (Bld) 0.7 % 0-1 [facility] C. trachomatis rRNA KAITY+prob e Ql (Unsp spec)Ordered By: Nicolle Perez on 09-09-2024 Chlamydia DNA (KAITY) Negative Negative [facility] CBC W/Diff, Automatedon Absolute Lymph 1.99 X10 3/uL Normal 0.83-4.51 [facility] Comment on above: Performed By: #### L 509.8002, L3890.6301, BTS, L3890.6006, L100.0100, L3890.6102, L509.4006 #### [facility] [address] [place], [address] Absolute Neut 2.9 X10 3/uL Normal 2.0-7.7 [facility] Comment on above: Performed By: #### L 509.8002, L3890.6301, BTS, L3890.6006, L100.0100, L3890.6102, L509.4006 #### [facility] [address] [place], [address] Basophils/100 WBC (Bld) 0.7 % Normal 0-1 [facility] Comment on above: Performed By: #### L 509.8002, L3890.6301, BTS, L3890.6006, L100.0100, L3890.6102, L509.4006 #### [facility] [address] [place], [address] Eosinophils/100 WBC (Bld) 0.9 % Normal 0-5 [facility] Comment on above: Performed By: #### L 509.8002, L3890.6301, BTS, L3890.6006, L100.0100, L3890.6102, L509.4006 #### [facility] [address] [place], [address] Erythrocyte distribution width (RBC) [Ratio] 13.5 % Normal 11.6-14.6 [facility] Comment on above: Performed By: #### L 509.8002, L3890.6301, BTS, L3890.6006, L100.0100, L3890.6102, L509.4006 #### [facility] [address] [place], [address] Hematocrit (Bld) [Volume fraction] 41.6 % Normal 37-47 [facility] Comment on above: Performed By: #### L 509.8002, L3890.6301, BTS, L3890.6006, L100.0100, L3890.6102, L509.4006 #### [facility] [address] [place], [address] Hemoglobin (Bld) [Mass/Vol] 13.4 g/dL Normal 12.0-15.0 [facility] Comment on above: Performed By: #### L 509.8002, L3890.6301, BTS, L3890.6006, L100.0100, L3890.6102, L509.4006 #### [facility] [address] [place], [address] IG% 0.500 Normal 0.0-0.9 [facility] Comment on above: Result Comment: IG% - Immature Granulocytes (promyelocytes, myelocytes and metamyelocytes) > 1% indicates that a LEFT SHIFT is Present. Performed By: #### L 509.8002, L3890.6301, BTS, L3890.6006, L100.0100, L3890.6102, L509.4006 #### [facility] [address] [place], [address] Lymphocytes/100 WBC (Bld) 35.3 % Normal 19-41 [facility] Comment on above: Performed By: #### L 509.8002, L3890.6301, BTS, L3890.6006, L100.0100, L3890.6102, L509.4006 #### [facility] [address] [place], [address] MCH (RBC) [Entitic mass] 27.8 pg Normal 27.0-32.0 [facility] Comment on above: Performed By: #### L 509.8002, L3890.6301, BTS, L3890.6006, L100.0100, L3890.6102, L509.4006 #### [facility] [address] [place], [address] MCHC (RBC) [Mass/Vol] 32.2 g/dL Normal 32-36 [facility] Comment on above: Performed By: #### L 509.8002, L3890.6301, BTS, L3890.6006, L100.0100, L3890.6102, L509.4006 #### [facility] [address] [place], [address] MCV (RBC) [Entitic vol] 86.3 fL Normal 81-99 [facility] Comment on above: Performed By: #### L 509.8002, L3890.6301, BTS, L3890.6006, L100.0100, L3890.6102, L509.4006 #### [facility] [address] [place], [address] Monocytes/100 WBC (Bld) 10.5 % High 0-10 [facility] Comment on above: Performed By: #### L 509.8002, L3890.6301, BTS, L3890.6006, L100.0100, L3890.6102, L509.4006 #### [facility] [address] [place], [address] Neutrophils/100 WBC (Bld) 52.1 % Normal 47-70 [facility] Comment on above: Performed By: #### L 509.8002, L3890.6301, BTS, L3890.6006, L100.0100, L3890.6102, L509.4006 #### [facility] [address] [place], [address] Nucleated RBC (Bld) [#/Vol] 0 10*3/uL Normal 0-5 [facility] Comment on above: Performed By: #### L 509.8002, L3890.6301, BTS, L3890.6006, L100.0100, L3890.6102, L509.4006 #### [facility] [address] [place], [address] Platelet mean volume (Bld) [Entitic vol] 10.6 fL Normal 6.2-12.0 [facility] Comment on above: Performed By: #### L 509.8002, L3890.6301, BTS, L3890.6006, L100.0100, L3890.6102, L509.4006 #### [facility] [address] [place], [address] Platelets (Bld) [#/Vol] 246 10*3/uL Normal 150-450 [facility] Comment on above: Performed By: #### L 509.8002, L3890.6301, BTS, L3890.6006, L100.0100, L3890.6102, L509.4006 #### [facility] [address] [place], [address] RBC (Bld) [#/Vol] 4.82 10*6/uL Normal 4.2-5.4 [facility] Comment on above: Performed By: #### L 509.8002, L3890.6301, BTS, L3890.6006, L100.0100, L3890.6102, L509.4006 #### [facility] [address] [place], [address] RDW SD 42.7 fl Normal 35.1-43.9 [facility] Comment on above: Performed By: #### L 509.8002, L3890.6301, BTS, L3890.6006, L100.0100, L3890.6102, L509.4006 #### [facility] [address] [place], [address] WBC (Bld) [#/Vol] 5.6 10*3/uL Normal 4.4-11.0 [facility] Comment on above: Performed By: #### L 509.8002, L3890.6301, BTS, L3890.6006, L100.0100, L3890.6102, L509.4006 #### [facility] [address] [facility] [place], [address] Chlamydia trachomatis rRNA d etection by probe and target amplification methodOrdered By: Nicolle Perez on 09-09-2024 C. trachomatis rRNA KAITY+probe Ql (Unsp spec) Negative Negative [facility] Eosinophil percentageOrdered By: Nicolle Perez on 09-09-2024 Eosinophils/100 WBC (Bld) 0.9 % 0-5 [facility] Erythrocyte distribution wid th (RBC) [Ratio]Ordered By: Nicolle Perez on 09-09-2024 Erythrocyte distribution width (RBC) [Entitic vol] 42.7 fL 35.1-43.9 [facility] Erythrocyte distribution wid th ratioOrdered By: Nicolle Perez on 09-09-2024 Erythrocyte distribution width (RBC) [Ratio] 13.5 % 11.6-14.6 [facility] Erythrocyte distribution wid th standard deviationOrdered By: Nicolle Perez on 09-09-2024 Erythrocyte distribution width (RBC) [Ratio] 42.7 fl 35.1-43.9 [facility] HBV surface Ag Ql (S)Ordered By: Nicolle Perez on 09-09-2024 Hepatitis B Surface Antigen Non-Reactive Nonreactive [facility] Comment on above: Reactive: Presumptiv e evidence of HBV. Repeatedly reactive samples must be confirmed using a neutralization test (Ele[employer] HBsAg Confirmatory Test)Non-Reactive: HBsAg not detected; does not exclude the possibility of exposure to HBV HIVon 09-09-2024 HIV Non-Reactive Normal Nonreactive [facility] Comment on above: Result Comment: Non- Reactive Reactive Repeatedly reactive samples must be confirmed according to CDC recommended confirmatory algorithms. The subresults for either HIVAG or AHIV can be used as an aid in the selection of the confirmation algorithm for reactive samples. Send out specimens with Reactive results to [facility] for confirmation. Order the HIV antibody detection and differentiation: lc#[id number] Performed By: #### L 509.8002, L3890.6301, BTS, L3890.6006, L100.0100, L3890.6102, L509.4006 ####[facility] [address] [place], [place], [id number] Hematocrit Auto (Bld) [Volum e fraction]Ordered By: Nicolle Perez on 09-09-2024 Hematocrit (Bld) [Volume fraction] 41.6 % 37-47 [facility] Hemoglobin measurementOrdere d By: Nicolle Perez on 09-09-2024 Hemoglobin (Bld) [Mass/Vol] 13.4 g/dL 12.0-15.0 [facility] Hepatitis C Antibodyon 09-09 Hepatitis C Ab Non-Reactive Normal Nonreactive [facility] Comment on above: Result Comment: Reac tive: Presumptive evidence of antibodies to HCV. Follow CDC recommendations for supplemental testing. Non-Reactive: Antibodies to HCV were not detected; does not exclude the possibility of exposure to HCV Reactive Results are presumptive evidence of antibodies to HCV. Follow CDC recommendations for supplemental testing. Order confirmation testing: HCV Quant by PCR testing - HCVPCR #[id number] Non Reactive: < 0.8 Equivocal: >/= 0.8 to < 1.0 Reactive: >/= 1.0 The CDC requires that a reactive/equivocal HCV antibody result be sent out for confirmation. HCV Quant by PCR testing. Performed By: #### L 509.8002, L3890.6301, BTS, L3890.6006, L100.0100, L3890.6102, L509.4006 ####[facility] [address] [place], [address] Hepatitis C antibodyOrdered By: Nicolle Perez on 09-09-2024 Hepatitis C Antibody Non-Reactive Nonreactive [facility] Comment on above: Reactive: Presumptiv e evidence of antibodies to HCV. Follow CDC recommendations for supplemental testing.Non-Reactive: Antibodies to HCV were not detected; does not exclude the possibility of exposure to HCVReactive Results are presumptive evidence of antibodies to HCV. Follow CDC recommendations for supplemental testing.Order confirmation testing: HCV Quant by PCR testing - HCVPCR #[id number] Non Reactive: < 0.8 Equivocal: >/= 0.8 to < 1.0 Reactive: >/= 1.0The CDC requires that a reactive/equivocal HCV antibody result be sent out for confirmation. HCV Quant by PCR testing. Immature granulocytes/100 WB C Auto (Bld)Ordered By: Nicolle Perez on 09-09-2024 Immature granulocytes/100 WBC (Bld) 0.500 % 0.0-0.9 [facility] Comment on above: IG% - Immature Granu locytes (promyelocytes, myelocytes and metamyelocytes) > 1% indicates that a LEFT SHIFT is Present. L3890.6102on 09-09-2024 HEP B Surf Ag Non-Reactive Normal Nonreactive [facility] Comment on above: Result Comment: Reac tive: Presumptive evidence of HBV. Repeatedly reactive samples must be confirmed using a neutralization test ([employer] HBsAg Confirmatory Test) Non-Reactive: HBsAg not detected; does not exclude the possibility of exposure to HBV Performed By: #### L 509.8002, L3890.6301, BTS, L3890.6006, L100.0100, L3890.6102, L509.4006 ####[facility] [address] [place], [address] L509.4006on 09-09-2024 Rubella IgG REAC Normal Nonreactive [facility] Comment on above: Result Comment: Anti body Result: Interpretation Non-Reactive: Non-Immune Reactive: Immune The following results were obtained with the [employer]ys Rubella IgG assay. Results from assays of other manufacturers cannot be used interchangeably. Performed By: #### L 509.8002, L3890.6301, BTS, L3890.6006, L100.0100, L3890.6102, L509.4006 #### [facility] [address] [place], [address] Laboratory - Microbiology an d Antimicrobial susceptibilityOrdered By: Nicolle Perez on 09-09-2024 HBV surface Ag Ql (S) Non-Reactive Nonreactive [facility] Comment on above: Reactive: Presumptiv e evidence of HBV. Repeatedly reactive samples must be confirmed using a neutralization test ([employer] HBsAg Confirmatory Test)Non-Reactive: HBsAg not detected; does not exclude the possibility of exposure to HBV Lymphocytes Auto (Unsp spec) [#/Vol]Ordered By: Nicolle Perez on 09-09-2024 Lymphocytes (Bld) [#/Vol] 1.99 10*3/uL 0.83-4.51 [facility] Lymphocytes/100 WBC Auto (Un sp spec)Ordered By: Nicolle Perez on 09-09-2024 Lymphocytes/100 WBC (Bld) 35.3 % 19-41 [facility] MCV (mean corpuscular volume ) determinationOrdered By: Nicolle Perez on 09-09-2024 MCV (RBC) [Entitic vol] 86.3 fL 81-99 [facility] Mean corpuscular hemoglobin (MCH) determinationOrdered By: Nicolle Perez on 09-09-2024 MCH (RBC) [Entitic mass] 27.8 pg 27.0-32.0 [facility] Mean corpuscular hemoglobin concentration (MCHC) determinationOrdered By: Nicolle Perez on 09-09-2024 MCHC (RBC) [Mass/Vol] 32.2 g/dL 32-36 [facility] Mean platelet volume determi nationOrdered By: Nicolle Perez on 09-09-2024 Platelet mean volume (Bld) [Entitic vol] 10.6 fL 6.2-12.0 [facility] Monocyte percentageOrdered B y: Nicolle Perez on 09-09-2024 Monocytes/100 WBC (Bld) 10.5 % High 0-10 [facility] Neisseria gonorrhoeae nuclei c acid detection by amplified probe techniqueOrdered By: Nicolle Perez on 09-09-2024 N. gonorrhoeae DNA KAITY+probe Ql (Unsp spec) Negative Negative [facility] Comment on above: Performed at: =[address] [id number] Director: Kenna Sibley MD, Phone: [phone] Neutrophil percentageOrdered By: Nicolle Perez on 09-09-2024 Neutrophils/100 WBC (Bld) 52.1 % 47-70 [facility] No Panel InformationOrdered By: Nicolle Perez on 09-09-2024 HIV (1&2) Antibody Non-Reactive Nonreactive [facility] Comment on above: Non-ReactiveReactive Repeatedly reactive samples must be confirmed according to CDC recommended confirmatory algorithms. The subresults for either HIVAG or AHIV can be used as an aid in the selection of the confirmation algorithm for reactive samples.Send out specimens with Reactive results to [facility] for confirmation.Order the HIV antibody detection and differentiation: #[id number] Nucleated red blood cell per centageOrdered By: Nicolle Perez on 09-09-2024 Nucleated RBC/100 WBC (Bld) [Ratio] 0 % 0-5 [facility] [employer]ionics System Engineer Office Visit Reporton 09-09-2024 Avionics System Engineer Office Visit Report [facility]'[address], [address] [place] [address] OFFICE VISIT Date of Service: 09/09/24 MR#: [id number] Acct: [id number] Name: FINNEYIVETTE GOMEZ Rep #: [id number] : 1990 Provider: Dr. 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 Is patient in pain?: No Allergies No Known Allergies Allergy (Verified 09/09/24 08:48) Medications ???Medication ???Instructions ???Recorded ???Confirmed ???Type multivitamin no.47-iron fum 27 cap PO 08/26/24 09/09/24 History mg-folate no.1 1 mg-dha 300 mg capsule (PNV-DHA) Last Menstrual Period: 07/08/24 Zika: Zika virus screening: Negative : No PFSH PFSH Medical History Segmental and somatic dysfunction of cervical region Segmental and somatic dysfunction of sacral region Back pain Segmental and somatic dysfunction of lumbar region Segmental and somatic dysfunction of thoracic region Surgical History [place] teeth extracted Family History Father CAD (coronary artery disease) Social History adopted: No household members: significant other and children housing: house number of children: 2 service: No current occupational status: employed 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/hazards: No pets and animals: Yes pets and animals: dog(s) history of recent travel: No sexually active: Yes Smoking Status: Never smoker second hand exposure: No alcohol intake: former details: social- not while substance use type: does not use well-balanced diet: daily or most days caffeine: Yes Type: coffee Number of servings: 1 eating out: rarely or never during the past year weight has: remained stable what type of physical activity do you participate in: other details: [employer] Classes frequency: 1-2 times per week duration: 60-90 minutes/day jayesh/church: Denominational seatbelt use: always do you feel safe at home: Yes 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 Date Name GA/Weeks Outcome Route Bth Weight Gen Labor Lgth Anesthesia Del Locatn Provider FOB 01/24/20 Betsy 39 live - full term 7#14oz Female none [facility] Dr. Adam Mcgee 10/09/22 Katelynn 39 live - full term 9lbs Female none [facility] Dr. Stephani Mcgee HPI 9WK NOB LMP 07/08 LEONARDA 04/14 Details: IVETTE FINNEY is a 34 year old who presents for New OB visit. OB Visit LEONARDA Calculator Estimated Delivery Date Method Current WG Current Estimate 04/14/25 LMP (Certain) 9w 0d Other Estimates 04/04/25 Ultrasound #1 10w 3d Comments: HIV: Urine Culture: Sequential Screen: NIPT Screen: Estimated Due Date: 04/14/25 Expected Delivery Route/Plan Labor Preferences- CB/BF classes: [] labor support person: [] labor intervention preferences: [] pain management options preferred: [] cut cord/dad catch: [] : [] PP control planned: [] discussed possible routes of delivery and associated risks: [] special requests: [] Specific Issue/Plans Covid status: [] Flu vaccine: [] Tdap vaccine: [] Rhogam: [] LARC form signed: [] Problem list reviewed and updated with the most current plan of care details and appropriate orders placed. Relevant counseling for the gestational age provided. Continue routine care and follow up unless otherwise noted in visit notes/problem list details Initial Weight: Not Recorded Date -???-???-???-???-???-?? ?-???-???-???-???-???-? ??- EGA Weight BP Urine Prot -???-???-???-???-???-?? ?-???-???-???-???-???-? ??- Glucose FHR FuHt Pres Dilation -???-???-???-???-???-?? ?-???-???-???-???-???-? ??- Effaced St Visit Note 09/09/24 -???-???-???-???-???-?? ?-???-???-???-???-???-? ??- 9w 0d 176 lb 8 oz 128/77 -???-???-???-???-???-?? ?-???-???-???-???-???-? ??- 168 -???-???-???-???-???-?? ?-???-???-???-???-???-? ??- JV- CRL is o ff by 10 days from LMP. new LEONARDA given. declines nipt. has complaint of hemorrhoids. Menstrual History Last Menstrual Period: 07/08/24 Reported LMP: (more content not included)... Normal [facility] Platelet countOrdered By: Tristian Perez on 09-09-2024 Platelets (Bld) [#/Vol] 246 10*3/uL 150-450 [facility] RBC Auto (Bld) [#/Vol]Ordere d By: Nicolle Perez on 09-09-2024 RBC (Bld) [#/Vol] 4.82 10*6/uL 4.2-5.4 [facility] Rubella immune status determ ination by IgG antibody assayOrdered By: Nicolle Perez on 09-09-2024 Rubella IgG Antibody REAC Nonreactive [facility] Comment on above: Antibody Result: Int erpretationNon-Reactive: Non-ImmuneReactive: ImmuneThe following results were obtained with the [employer] Rubella IgG assay. Results from assays of other manufacturers cannot be used interchangeably. Syphilis Antibodieson 2024 Syphilis Abs Non-Reactive Normal Nonreactive [facility] Comment on above: Performed By: #### L 509.8002, L3890.6301, BTS, L3890.6006, L100.0100, L3890.6102, L509.4006 #### [facility] [address] [place], [place], [address] T. pallidum abOrdered By: Tristian Perez on 09-09-2024 Syphilis Total Antibody Non-Reactive Nonreactiv e [facility] Type AND Screenon 09-09-2024 Ab SCREEN GEL Negative Normal [facility] Comment on above: Order Comment: PN Performed By: #### L 509.8002, L3890.6301, BTS, L3890.6006, L100.0100, L3890.6102, L509.4006 #### [facility] [address] [place], [place], [id number] Urine cultureOrdered By: Tamiko Perez on 09-09-2024 Bacteria identified Cx Nom (U) Culture exhibits no growth. [facility] White blood cell (WBC) count Ordered By: Nicolle Perez on 09-09-2024 WBC (Bld) [#/Vol] 5.6 10*3/uL 4.4-11.0 [facility] Absolute lymphocyte countOrd ered By: Dr. Perez on 10-09-2022 Lymphocytes Auto (Unsp spec) [#/Vol] 1.30 10*3/uL 0.83-4.51 [facility] Basophil percentageOrdered B y: Dr. Perez on 10-09-2022 Basophils/100 WBC (Bld) 0.4 % 0-1 [facility] Eosinophils/100 WBC (Bld) 0.0 % 0-5 [facility] Neutrophils (Bld) [#/Vol] 12.2 10*3/uL 2.0-7.7 [facility] Neutrophils/100 WBC (Bld) 84.8 % 47-70 [facility] WBC (Bld) [#/Vol] 14.4 10*3/uL 4.4-11.0 [facility] Blood erythrocytes count (nu mber/volume)Ordered By: Dr. Perez on 10-09-2022 RBC (Bld) [#/Vol] 4.43 10*6/uL 4.2-5.4 [facility] Blood hemoglobin measurement (mass/volume)Ordered By: Dr. Perez on 10-09-2022 Hemoglobin (Bld) [Mass/Vol] 12.6 g/dL 12.0-15.0 [facility] Blood lymphocytes/100 leukoc ytesOrdered By: Dr. Perez on 10-09-2022 Lymphocytes/100 WBC (Bld) 9.0 % 19-41 [facility] Blood monocytes/100 leukocyt esOrdered By: Dr. Perez on 10-09-2022 Monocytes/100 WBC (Bld) 4.8 % 0-10 [facility] Blood platelet mean volumeOr dered By: Dr. Perez on 10-09-2022 Platelet mean volume (Bld) [Entitic vol] 10.3 fL 6.2-12.0 [facility] Determination of erythrocyte mean corpuscular volume (MCV)Ordered By: Dr. Perez on 10-09-2022 MCV (RBC) [Entitic vol] 89.2 fL 81-99 [facility] Hematocrit Auto (Bld) [Volum e fraction]Ordered By: Dr. Perez on 10-09-2022 Hematocrit (Bld) [Volume fraction] 39.5 % 37-47 [facility] - Hematology and Cell countsOrdered By: Dr. Perez on 10-09-2022 Erythrocyte distribution width (RBC) [Entitic vol] 44.1 fL 35.1-43.9 [facility] Erythrocyte distribution width (RBC) [Ratio] 13.5 % 11.6-14.6 [facility] Immature granulocytes/100 WBC (Bld) 1.000 % 0.0-0.9 [facility] Comment on above: IG% - Immature Granu locytes (promyelocytes, myelocytes and metamyelocytes) > 1% indicates that a LEFT SHIFT is Present. MCH (RBC) [Entitic mass] 28.4 pg 27.0-32.0 [facility] Nucleated RBC/100 WBC (Bld) [Ratio] 0 % 0-5 [facility] MCHC Auto (RBC) [Mass/Vol]Or dered By: Dr. Perez on 10-09-2022 MCHC (RBC) [Mass/Vol] 31.9 g/dL 32-36 [facility] Platelets bldOrdered By: Dr. Perez on 10-09-2022 Platelets (Bld) [#/Vol] 240 10*3/uL 150-450 [facility] Serum Treponema species anti body detectionOrdered By: Dr. Perez on 10-09-2022 Treponema sp Ab Ql (S) Non-Reactive [facility] - Chemistry and C hemistry - challengeon 10-03-2022 Glucose Ql (U) Negative [facility] - Urinalysison Protein Ql (U) Negative [facility] No Panel InformationOrdered By: Dr. Cleaning on 09-29-2022 Group B Streptococcus Culture Group B Beta Streptococcus is not isolated. [facility] - Chemistry and C hemistry - challengeon 09-10-2022 Glucose Ql (U) Negative [facility] - Urinalysison Protein Ql (U) Negative [facility] - Chemistry and C hemistry - challengeon 08-27-2022 Glucose Ql (U) Negative [facility] - Urinalysison Protein Ql (U) Negative [facility] - Chemistry and C hemistry - challengeon 08-13-2022 Glucose Ql (U) Negative [facility] - Urinalysison Protein Ql (U) Negative [facility] - Chemistry and C hemistry - challengeon 07-30-2022 Glucose Ql (U) Negative [facility] - Urinalysison Protein Ql (U) Negative [facility] Absolute lymphocyte countOrd ered By: Dr. Perez on 07-16-2022 Lymphocytes Auto (Unsp spec) [#/Vol] 1.83 10*3/uL 0.83-4.51 [facility] Basophil percentageOrdered B y: Dr. Perez on 07-16-2022 Basophils/100 WBC (Bld) 0.4 % 0-1 [facility] Eosinophils/100 WBC (Bld) 1.0 % 0-5 [facility] Neutrophils (Bld) [#/Vol] 5.4 10*3/uL 2.0-7.7 [facility] Neutrophils/100 WBC (Bld) 65.3 % 47-70 [facility] WBC (Bld) [#/Vol] 8.3 10*3/uL 4.4-11.0 [facility] Blood erythrocytes count (nu mber/volume)Ordered By: Dr. Perez on 07-16-2022 RBC (Bld) [#/Vol] 4.00 10*6/uL 4.2-5.4 [facility] Blood hemoglobin measurement (mass/volume)Ordered By: Dr. Perez on 07-16-2022 Hemoglobin (Bld) [Mass/Vol] 11.8 g/dL 12.0-15.0 [facility] Blood lymphocytes/100 leukoc ytesOrdered By: Dr. Perez on 07-16-2022 Lymphocytes/100 WBC (Bld) 22.1 % 19-41 [facility] Blood monocytes/100 leukocyt esOrdered By: Dr. Perez on 07-16-2022 Monocytes/100 WBC (Bld) 10.0 % 0-10 [facility] Blood platelet mean volumeOr dered By: Dr. Perez on 07-16-2022 Platelet mean volume (Bld) [Entitic vol] 9.9 fL 6.2-12.0 [facility] Determination of erythrocyte mean corpuscular volume (MCV)Ordered By: Dr. Perez on 07-16-2022 MCV (RBC) [Entitic vol] 90.5 fL 81-99 [facility] Gestational diabetes screen 1-hour screen with 50g oral glucose loadOrdered By: Dr. Perez on 07-16-2022 Glucose 1 Hr post 50 g glucose PO [Mass/Vol] 68 mg/dL 70-140 [facility] HIV 1 and HIV-2 antibody ass ay with HIV-1 p24 antigen detectionOrdered By: Dr. Perez on 07-16-2022 HIV 1+2 Ab+HIV1 p24 Ag IA Ql Non-Reactive Nonreactive [facility] Hematocrit Auto (Bld) [Volum e fraction]Ordered By: Dr. Perez on 07-16-2022 Hematocrit (Bld) [Volume fraction] 36.2 % 37-47 [facility] - Hematology and Cell countsOrdered By: Dr. Perez on 07-16-2022 Erythrocyte distribution width (RBC) [Entitic vol] 46.3 fL 35.1-43.9 [facility] Erythrocyte distribution width (RBC) [Ratio] 13.8 % 11.6-14.6 [facility] Immature granulocytes/100 WBC (Bld) 1.200 % 0.0-0.9 [facility] Comment on above: IG% - Immature Granu locytes (promyelocytes, myelocytes and metamyelocytes) > 1% indicates that a LEFT SHIFT is Present. MCH (RBC) [Entitic mass] 29.5 pg 27.0-32.0 [facility] Nucleated RBC/100 WBC (Bld) [Ratio] 0 % 0-5 [facility] MCHC Auto (RBC) [Mass/Vol]Or dered By: Dr. Perez on 07-16-2022 MCHC (RBC) [Mass/Vol] 32.6 g/dL 32-36 [facility] Platelets bldOrdered By: Dr. Perez on 07-16-2022 Platelets (Bld) [#/Vol] 206 10*3/uL 150-450 [facility] Serum Treponema species anti body detectionOrdered By: Dr. Perez on 07-16-2022 Treponema sp Ab Ql (S) Non-Reactive [facility] - Chemistry and C hemistry - challengeon 07-04-2022 Glucose Ql (U) Negative [facility] - Urinalysison Protein Ql (U) Negative [facility] - Chemistry and C hemistry - challengeon 06-06-2022 Glucose Ql (U) Negative [facility] - Urinalysison Protein Ql (U) Negative [facility] - Chemistry and C hemistry - challengeon 05-09-2022 Glucose Ql (U) Negative [facility] - Urinalysison Protein Ql (U) Negative [facility] - Chemistry and C hemistry - challengeon 04-09-2022 Glucose Ql (U) Negative [facility] - Urinalysison Protein Ql (U) Negative [facility] Absolute lymphocyte counton 03-13-2022 Lymphocytes Auto (Unsp spec) [#/Vol] 2.08 10*3/uL 0.83-4.51 [facility] Work Phone: Basophil percentageon 2021 Basophils/100 WBC (Bld) 0.4 % 0-1 [facility] Work Phone: Eosinophils/100 WBC (Bld) 1.0 % 0-5 [facility] Work Phone: Neutrophils (Bld) [#/Vol] 4.0 10*3/uL 2.0-7.7 [facility] Work Phone: Neutrophils/100 WBC (Bld) 58.9 % 47-70 [facility] Work Phone: WBC (Bld) [#/Vol] 6.9 10*3/uL 4.4-11.0 [facility] Work Phone: Blood erythrocytes count (nu mber/volume)on 03-13-2022 RBC (Bld) [#/Vol] 4.40 10*6/uL 4.2-5.4 [facility] Work Phone: Blood hemoglobin measurement (mass/volume)on 03-13-2022 Hemoglobin (Bld) [Mass/Vol] 12.9 g/dL 12.0-15.0 [facility] Work Phone: Blood lymphocytes/100 leukoc yteson 03-13-2022 Lymphocytes/100 WBC (Bld) 30.3 % 19-41 [facility] Work Phone: Blood monocytes/100 leukocyt eson 03-13-2022 Monocytes/100 WBC (Bld) 9.0 % 0-10 [facility] Work Phone: Blood platelet mean volumeon 03-13-2022 Platelet mean volume (Bld) [Entitic vol] 10.2 fL 6.2-12.0 [facility] Work Phone: Chlamydia trachomatis rRNA d etection by probe and target amplification methodon 03-13-2022 C. trachomatis rRNA KAITY+probe Ql (Unsp spec) Negative Negative [facility] Work Phone: Determination of erythrocyte mean corpuscular volume (MCV)on 03-13-2022 MCV (RBC) [Entitic vol] 88.0 fL 81-99 [facility] Work Phone: HIV 1 and HIV-2 antibody ass ay with HIV-1 p24 antigen detectionon 03-13-2022 HIV 1+2 Ab+HIV1 p24 Ag IA Ql Non-Reactive Nonreactive [facility] Work Phone: Hematocrit Auto (Bld) [Volum e fraction]on 03-13-2022 Hematocrit (Bld) [Volume fraction] 38.7 % 37-47 [facility] Work Phone: Laboratory - Drug toxicology on 03-13-2022 Amphetamines Ql (U) Negative <1000 ng/mL [facility] Work Phone: Benzodiazepines Ql (U) Negative < 200 ng/mL [facility] Work Phone: Cannabinoids Screen Ql (U) Negative < 50 ng/mL [facility] Work Phone: Cocaine Ql (U) Negative < 300 ng/mL [facility] Work Phone: Opiates Ql (U) Negative < 300 ng/mL [facility] Work Phone: Laboratory - Hematology and Cell countson 03-13-2022 Erythrocyte distribution width (RBC) [Entitic vol] 41.0 fL 35.1-43.9 [facility] Work Phone: Erythrocyte distribution width (RBC) [Ratio] 12.8 % 11.6-14.6 [facility] Work Phone: Immature granulocytes/100 WBC (Bld) 0.400 % 0.0-0.9 [facility] Work Phone: Comment on above: IG% - Immature Granu locytes (promyelocytes, myelocytes and metamyelocytes) > 1% indicates that a LEFT SHIFT is Present. MCH (RBC) [Entitic mass] 29.3 pg 27.0-32.0 [facility] Work Phone: Nucleated RBC/100 WBC (Bld) [Ratio] 0 % 0-5 [facility] Work Phone: Laboratory - Microbiology an d Antimicrobial susceptibilityon 03-13-2022 N. gonorrhoeae DNA KAITY+probe Ql (Unsp spec) Negative Negative [facility] Work Phone: Comment on above: Performed at: =G - L [address] [id number] Director: Kenna Sibley MD, Phone: [phone] MCHC Auto (RBC) [Mass/Vol]on 03-13-2022 MCHC (RBC) [Mass/Vol] 33.3 g/dL 32-36 [facility] Work Phone: No Panel Informationon 03-13 MDMA (Ecstasy) Screen Negative < 500 ng/mL [facility] Work Phone: Urine Barbiturates Screen Negative < 200 ng/mL [facility] Work Phone: Urine Drug Screen Comment [facility] Work Phone: Comment on above: CONFIRMATORY TESTING FOR ALL POSITIVE URINE DRUG SCREENRESULTS WILL ONLY BE SENT OUT UPON PHYSICIAN ORDER. VISTA Urine Drug Screen methods provide only preliminaryanalytical test results. A more specific alternate chemicalmethod must be used in order to obtain a confirmedanalytical result. Gas chromatography/mass spectrometery(GC/MS) is the preferred confirmatory method. Clinicalconsideration and professional judgement should be appliedto any drug of abuse test result, particularly whenpreliminary positive results are used. URINE TCA TESTING MUST BE ORDERED SEPARATELY. USE TESTMNEMONIC: [facility] Urine Methadone Screen Negative < 300 ng/mL [facility] Work Phone: Hepatitis B Surface Antigen Non-Reactive Nonreactive [facility] Work Phone: Hepatitis C Antibody Non-Reactive Nonreactive [facility] Work Phone: Comment on above: Non Reactive: < 0.8 Equivocal: >/= 0.8 to < 1.0 Reactive: >/= 1.0The [facility] recommends that a reactive/equivocal HCV antibody result be followed up by the HCV Nucleic Acid Amplificationtest (228536) Rubella IgG Antibody Reactive Nonreactive [facility] Work Phone: Comment on above: Antibody Results Int erpretation of Immune Status Non Reactive Presumed Non-Immune Equivocal Equivocal Reactive Presumed Immune Platelets bldon 03-13-2022 Platelets (Bld) [#/Vol] 228 10*3/uL 150-450 [facility] Work Phone: Serum Treponema species anti body detectionon 03-13-2022 Treponema sp Ab Ql (S) Non-Reactive [facility] Work Phone: Urine phencyclidine (PCP) de tectionon 03-13-2022 Phencyclidine Ql (U) Negative < 25 ng/mL [facility] Work Phone: Absolute lymphocyte counton 02-25-2022 Lymphocytes Auto (Unsp spec) [#/Vol] 2.39 10*3/uL 0.83-4.51 [facility] Work Phone: Absolute reticulocyte counto n 02-25-2022 Reticulocytes (Bld) [#/Vol] 0.00 10*3/uL 0-5 [facility] Work Phone: [phone] Basophil percentageon 2021 Basophil percentage 3.1 mg/dL 2.5-4.9 [facility] Work Phone: Bilirubin [Mass/Vol] 0.50 mg/dL 0.20-1.00 [facility] Work Phone: Comment on above: For patients on eltr ombopag therapy, use of Dimension [place] TBIL is not recommended. Chloride [Moles/Vol] 104 mmol/L 98-107 [facility] Work Phone: Cholesterol [Mass/Vol] 149 mg/dL <200 [facility] Work Phone: Comment on above: <200 mg/dL Desirable 200-240 mg/dL Borderline >240 mg/dL High Risk Glucose [Mass/Vol] 96 mg/dL 74-106 [facility] Work Phone: Neutrophils (Bld) [#/Vol] 2.9 10*3/uL 2.0-7.7 [facility] Work Phone: Potassium [Moles/Vol] 3.9 mmol/L 3.5-5.1 [facility] Work Phone: Protein [Mass/Vol] 6.8 g/dL 6.4-8.2 [facility] Work Phone: Sodium [Moles/Vol] 139 mmol/L 136-145 [facility] Work Phone: Triglyceride [Mass/Vol] 38 mg/dL <199 [facility] Work Phone: Comment on above: The drugs N-Acetylcy steine and Metamizole may falsely depress this assay.Serum Triglycerides Reference Interval Normal <150 mg/dL Borderline high 150 - 199 mg/dL High 200 - 499 mg/dL Very High > or = 500 mg/dL WBC (Bld) [#/Vol] 6.1 10*3/uL 4.4-11.0 [facility] Work Phone: Blood erythrocytes count (nu mber/volume)on 02-25-2022 RBC (Bld) [#/Vol] 4.38 10*6/uL 4.2-5.4 [facility] Work Phone: Blood hemoglobin measurement (mass/volume)on 02-25-2022 Hemoglobin (Bld) [Mass/Vol] 12.6 g/dL 12.0-15.0 [facility] Work Phone: Blood platelet mean volumeon 02-25-2022 Platelet mean volume (Bld) [Entitic vol] 10.0 fL 6.2-12.0 [facility] Work Phone: Determination of erythrocyte mean corpuscular volume (MCV)on 02-25-2022 MCV (RBC) [Entitic vol] 87.0 fL 81-99 [facility] Work Phone: Direct bilirubinon 2 Bilirubin.direct [Mass/Vol] 0.14 mg/dL 0.00-0.30 [facility] Work Phone: Hematocrit Auto (Bld) [Volum e fraction]on 02-25-2022 Hematocrit (Bld) [Volume fraction] 38.1 % 37-47 [facility] Work Phone: Laboratory - Chemistry and C hemistry - challengeon 02-25-2022 ALP [Catalytic activity/Vol] 55 U/L 45-117 [facility] Work Phone: ALT [Catalytic activity/Vol] 23 U/L 13-56 [facility] Work Phone: Cholesterol.total/Adrianne sterol in HDL [Mass ratio] 1.80 {ratio} [facility] Work Phone: CO2 [Moles/Vol] 25.0 mmol/L 21.0-32.0 [facility] Work Phone: Globulin (S) [Mass/Vol] 3.3 g/dL 2.2-4.2 [facility] Work Phone: Urea nitrogen/Creatinine [Mass ratio] 18.3 mg/mg 10-20 [facility] Work Phone: Laboratory - Hematology and Cell countson 02-25-2022 Erythrocyte distribution width (RBC) [Entitic vol] 41.1 fL 35.1-43.9 [facility] Work Phone: Erythrocyte distribution width (RBC) [Ratio] 12.8 % 11.6-14.6 [facility] Work Phone: MCH (RBC) [Entitic mass] 28.8 pg 27.0-32.0 [facility] Work Phone: Nucleated RBC/100 WBC (Bld) [Ratio] 0 % 0-5 [facility] Work Phone: MCHC Auto (RBC) [Mass/Vol]on 02-25-2022 MCHC (RBC) [Mass/Vol] 33.1 g/dL 32-36 [facility] Work Phone: No Panel Informationon 02-25 Estimated GFR (MDRD) Amer 137 mL/min >60 [facility] Work Phone: Comment on above: GFR Calc Estimated GFR (MDRD) Non-Af Amer 113 mL/min >60 [facility] Work Phone: Comment on above: Non- GFR Calc Platelets bldon 02-25-2022 Platelets (Bld) [#/Vol] 202 10*3/uL 150-450 [facility] Work Phone: Segmented neutrophils/100 WB C Auto (Bld)on 02-25-2022 Segmented neutrophils/100 WBC (Bld) 48.4 % 47-70 [facility] Work Phone: Serum or plasma albumin juan urement (mass/volume)on 02-25-2022 Albumin [Mass/Vol] 3.5 g/dL 3.2-5.0 [facility] Work Phone: Serum or plasma albumin/glob ulin mass ratioon 02-25-2022 Albumin/Globulin [Mass ratio] 1.1 {ratio} 0.9-2.4 [facility] Work Phone: Serum or plasma calcium juan urement (mass/volume)on 02-25-2022 Calcium [Mass/Vol] 8.4 mg/dL 8.5-10.1 [facility] Work Phone: Serum or plasma cholesterol in HDL measurement (mass/volume)on 02-25-2022 Cholesterol in HDL [Mass/Vol] 81 mg/dL >40 [facility] Work Phone: Comment on above: The drugs N-Acetylcy steine and Metamizole may falsely depress this assay. Reference Range HDL <40 mg/dL Low HDL Cholesterol HDL >or= 60 mg/dL High HDL Cholesterol Serum or plasma cholesterol in VLDL measurement (mass/volume)on 02-25-2022 Cholesterol in VLDL [Mass/Vol] 8 mg/dL 5-40 [facility] Work Phone: Serum or plasma creatinine m easurement (mass/volume)on 02-25-2022 Creatinine [Mass/Vol] 0.66 mg/dL 0.55-1.02 [facility] Work Phone: Comment on above: The validity of the calculated GFR & GFRAA in patients over 70 years has not been determined. Clinical correlation is essential. Serum or plasma low density lipoprotein (LDL) cholesterol measurement (mass/volume)on 02-25-2022 Cholesterol in LDL [Mass/Vol] 60 mg/dL 0-130 [facility] Work Phone: Serum or plasma urea nitroge n measurement (mass/volume)on 02-25-2022 Urea nitrogen [Mass/Vol] 12 mg/dL 7-18 [facility] Work Phone: Serum or plasma uric acid me asurement (mass/volume)on 02-25-2022 Urate [Mass/Vol] 2.5 mg/dL 2.6-6.0 [facility] Work Phone: Comment on above: The drugs N-Acetylcy steine and Metamizole may falsely depress this assay. Thin prep Papanicolaou smear with manual screeningon 02-25-2022 Thin prep Papanicolaou smear with manual screening 13 U/L 15-37 [facility] Work Phone: Thin prep Papanicolaou smear with manual screening 10 5-15 [facility] Work Phone: Thin prep Papanicolaou smear with manual screening 140 U/L 84-246 [facility] Work Phone: Culture, urine Bacteria identified Cx Nom (U) Culture exhibits no growth. [facility] Work Phone: Vital Signs Date Time Vital Sign Value Performing Clinician Leonila galvan 12-26-2024 14:31-0400 Body height 177.[address] Mariposa Cleaning MD Work Phone: [facility] 12-26-2024 14:31-0400 Body mass index (BMI) [Ratio] 28 kg/m2 Dr. Mariposa Cleaning MD Work Phone: [facility] 12-26-2024 14:31-0400 Body weight 88.[address] Mariposa Cleaning MD Work Phone: [facility] 12-26-2024 14:31-0400 Diastolic blood pressure 72 mm[Hg] Dr. Mariposa Cleaning MD Work Phone: [phone] [place] [address] 12-26-2024 14:31-0400 Systolic blood pressure 120 mm[Hg] Dr. Mariposa Cleaning MD Work Phone: 3(447)213-974052 [place] [address] 12-01-2024 09:36-0400 Body height 177.[address] Mariposa Cleaning MD Work Phone: 0(755)472-362752 [place] [address] 12-01-2024 09:36-0400 Body mass index (BMI) [Ratio] 27.5 kg/m2 Dr. Mariposa Cleaning MD Work Phone: [phone])709-125952 [place] [address] 12-01-2024 09:36-0400 Body weight 87.[address] Mariposa Cleaning MD Work Phone: [phone])227-275952 [place] [address] 12-01-2024 09:36-0400 Diastolic blood pressure 60 mm[Hg] Dr. Mariposa Cleaning MD Work Phone: 9(601)129-250752 [place] [address] 12-01-2024 09:36-0400 Systolic blood pressure 120 mm[Hg] Dr. Mariposa Cleaning MD Work Phone: [facility] 11-03-2024 10:08-0400 Body height 177.[address] Mariposa Cleaning MD Work Phone: 4(768)903-004252 [place] [address] 11-03-2024 10:08-0400 Body mass index (BMI) [Ratio] 26.5 kg/m2 Dr. Mariposa Cleaning MD Work Phone: 1(336)030-140152 [place] [address] 11-03-2024 10:08-0400 Body weight 83.[address] Mariposa Cleaning MD Work Phone: [facility] 11-03-2024 10:08-0400 Diastolic blood pressure 57 mm[Hg] Dr. Mariposa Cleaning MD Work Phone: 0(718)491-543452 [place] [address] 11-03-2024 10:08-0400 Systolic blood pressure 120 mm[Hg] Dr. Mariposa Cleaning MD Work Phone: [phone])341-895752 [place] [address] 10-07-2024 09:24-0400 Body mass index (BMI) [Ratio] 29.9 kg/m2 Dr. Mariposa Cleaning MD Work Phone: [phone](351)405-156452 [place] [address] 10-07-2024 09:24-0400 Body weight 81.[address] Mariposa Cleaning MD Work Phone: 1(141)142-580252 [place] [address] 10-07-2024 09:24-0400 Diastolic blood pressure 66 mm[Hg] Dr. Mariposa Cleaning MD Work Phone: 8(254)832-218552 [place] [address] 10-07-2024 09:24-0400 Systolic blood pressure 111 mm[Hg] Dr. Mariposa Cleaning MD Work Phone: 6(373)863-017052 [place] [address] 10-03-2024 08:25-0400 Body mass index (BMI) [Ratio] 30.1 kg/m2 Dr. Mariposa Cleaning MD Work Phone: 6(760)336-564452 [place] [address] 10-03-2024 08:25-0400 Body weight 82.[address] Mariposa Cleaning MD Work Phone: [phone])872-547852 [place] [address] 10-03-2024 08:25-0400 Diastolic blood pressure 74 mm[Hg] Dr. Mariposa Cleaning MD Work Phone: 8(880)525-332252 [place] [address] 10-03-2024 08:25-0400 Heart rate 73 /min Dr. Mariposa Cleaning MD Work Phone: [phone])[phone] [place] [address] 10-03-2024 08:25-0400 SaO2% (BldA) [Mass fraction] 100 % Dr. Mariposa Cleaning MD Work Phone: [phone])148-702852 [place] [address] 10-03-2024 08:25-0400 Systolic blood pressure 118 mm[Hg] Dr. Mariposa Cleaning MD Work Phone: [facility] 09-09-2024 08:48-0400 Body height 165.[address] Mariposa Cleaning MD Work Phone: [facility] 09-09-2024 08:48-0400 Body mass index (BMI) [Ratio] 29.3 kg/m2 Dr. Mariposa Cleaning MD Work Phone: [facility] 09-09-2024 08:48-0400 Body weight 80.[address] Mariposa Cleaning MD Work Phone: [facility] 09-09-2024 08:48-0400 Diastolic blood pressure 77 mm[Hg] Dr. Mariposa Cleaning MD Work Phone: [facility] 09-09-2024 08:48-0400 Systolic blood pressure 128 mm[Hg] Dr. Mariposa Cleaning MD Work Phone: [facility] 10-10-2022 07:50-0400 Body temperature 98 [degF] Dr. Nahum Elder Work Phone: [facility] 10-10-2022 07:50-0400 Diastolic blood pressure 74 mm[Hg] Dr. Nahum Elder Work Phone: [facility] 10-10-2022 07:50-0400 Heart rate 65 /min Dr. Nahum Elder Work Phone: [facility] 10-10-2022 07:50-0400 Respiratory rate 16 /min Dr. Nahum Elder Work Phone: [facility] 10-10-2022 07:50-0400 SaO2% (BldA) [Mass fraction] 95 % Dr. Nahum Elder Work Phone: [facility] 10-10-2022 07:50-0400 Systolic blood pressure 121 mm[Hg] Dr. Nahum Elder Work Phone: [facility] 10-09-2022 06:48-0400 Body height 165.[address] Nahum Elder Work Phone: [facility] 10-09-2022 06:48-0400 Body mass index (BMI) [Ratio] 36.3 kg/m2 Dr. Nahum Elder Work Phone: [facility] 10-09-2022 06:48-0400 Body weight 99.[address] Nahum Elder Work Phone: [facility] 10-08-2022 09:12-0400 Body mass index (BMI) [Ratio] 32 kg/m2 Dr. Nahum Elder Work Phone: [facility] 10-08-2022 09:12-0400 Body weight 101.[address] Nahum Elder Work Phone: [facility] 10-08-2022 09:12-0400 Diastolic blood pressure 79 mm[Hg] Dr. Nahum Elder Work Phone: [facility] 10-08-2022 09:12-0400 Systolic blood pressure 113 mm[Hg] Dr. Nahum Elder Work Phone: [facility] 10-03-2022 09:25-0400 Body mass index (BMI) [Ratio] 31.3 kg/m2 Dr. Nahum Elder Work Phone: [facility] 10-03-2022 09:25-0400 Body weight 99.[address] Nahum Elder Work Phone: [facility] 10-03-2022 09:25-0400 Diastolic blood pressure 78 mm[Hg] Dr. Nahum Elder Work Phone: [facility] 10-03-2022 09:25-0400 Systolic blood pressure 119 mm[Hg] Dr. Nahum Elder Work Phone: [facility] 09-28-2022 15:25-0400 Diastolic blood pressure 76 mm[Hg] Dr. Nahum Elder Work Phone: [facility] 09-28-2022 15:25-0400 Systolic blood pressure 118 mm[Hg] Dr. Nahum Elder Work Phone: [facility] 09-26-2022 10:52-0400 Body height 177.[address] Nahum Elder Work Phone: [facility] 09-26-2022 10:50-0400 Body mass index (BMI) [Ratio] 31.3 kg/m2 Dr. Nahum Elder Work Phone: [facility] 09-26-2022 10:50-0400 Body weight 98.[address] Nahum Elder Work Phone: [phone] [place] [address] 09-10-2022 08:42-0400 Body weight 97.[address] Nahum Elder Work Phone: [phone])[phone] [place] [address] 09-10-2022 08:42-0400 Diastolic blood pressure 74 mm[Hg] Dr. Nahum Elder Work Phone: 9([phone] [place] [address] 09-10-2022 08:42-0400 Systolic blood pressure 116 mm[Hg] Dr. Nahum Elder Work Phone: 0([phone] [place] [address] 09-04-2022 10:53-0400 Body mass index (BMI) [Ratio] 30.7 kg/m2 Dr. Nahum Elder Work Phone: [phone])[phone] [place] [address] 09-04-2022 10:38-0400 Body mass index (BMI) [Ratio] 29.9 kg/m2 Dr. Nahum Elder Work Phone: [phone])[phone] [place] [address] 09-04-2022 10:38-0400 Body weight 94.[address] Nahum Elder Work Phone: [facility] 09-04-2022 10:38-0400 Diastolic blood pressure 80 mm[Hg] Dr. Nahum Elder Work Phone: [facility] 09-04-2022 10:38-0400 Systolic blood pressure 126 mm[Hg] Dr. Nahum Elder Work Phone: [phone] [address] [place] [address] 08-27-2022 09:14-0400 Body mass index (BMI) [Ratio] 30.6 kg/m2 Dr. Nahum Elder Work Phone: [facility] 08-27-2022 09:14-0400 Body weight 96.[address] Nahum Elder Work Phone: [facility] 08-27-2022 09:14-0400 Diastolic blood pressure 70 mm[Hg] Dr. Nahum Elder Work Phone: [facility] 08-27-2022 09:14-0400 Systolic blood pressure 109 mm[Hg] Dr. Nahum Elder Work Phone: [facility] 08-13-2022 09:01-0500 Body mass index (BMI) [Ratio] 29.7 kg/m2 Dr. Nahum Elder Work Phone: [facility] 08-13-2022 09:01-0500 Body weight [address] Nahum Elder Work Phone: [facility] 08-13-2022 09:01-0500 Diastolic blood pressure 66 mm[Hg] Dr. Nahum Elder Work Phone: [facility] 08-13-2022 09:01-0500 Systolic blood pressure 100 mm[Hg] Dr. Nahum Elder Work Phone: [facility] 07-30-2022 08:53-0500 Body mass index (BMI) [Ratio] 29.7 kg/m2 Dr. Nahum Elder Work Phone: [facility] 07-30-2022 08:53-0500 Body weight [address] Nahum Elder Work Phone: [facility] 07-30-2022 08:53-0500 Diastolic blood pressure 6 mm[Hg] Dr. Nahum Elder Work Phone: [facility] 07-30-2022 08:53-0500 Systolic blood pressure 102 mm[Hg] Dr. Nahum Elder Work Phone: [facility] 07-04-2022 15:50-0500 Body height 177.[address] Nahum Elder Work Phone: [facility] 07-04-2022 15:50-0500 Body mass index (BMI) [Ratio] 29 kg/m2 Dr. Nahum Elder Work Phone: [facility] 07-04-2022 15:50-0500 Body weight 91.[address] Nahum Elder Work Phone: [facility] 07-04-2022 15:50-0500 Diastolic blood pressure 67 mm[Hg] Dr. Nahum Elder Work Phone: [facility] 07-04-2022 15:50-0500 Systolic blood pressure 112 mm[Hg] Dr. Nahum Elder Work Phone: [facility] 06-06-2022 15:53-0500 Body mass index (BMI) [Ratio] 27.3 kg/m2 Dr. Nahum Elder Work Phone: [facility] 06-06-2022 15:53-0500 Body weight 86.[address] Nahum Elder Work Phone: [facility] 06-06-2022 15:53-0500 Diastolic blood pressure 63 mm[Hg] Dr. Nahum Elder Work Phone: [facility] 06-06-2022 15:53-0500 Systolic blood pressure 114 mm[Hg] Dr. Nahum Elder Work Phone: [facility] 05-09-2022 15:55-0500 Body height 177.[address] Nahum Elder Work Phone: [facility] Work Phone: 05-09-2022 15:55-0500 Body mass index (BMI) [Ratio] 25.8 kg/m2 Dr. Nahum Elder Work Phone: [facility] 05-09-2022 15:55-0500 Body weight 81.[address] Nahum Elder Work Phone: [facility] 05-09-2022 15:55-0500 Diastolic blood pressure 70 mm[Hg] Dr. Nahum Elder Work Phone: [facility] 05-09-2022 15:55-0500 Systolic blood pressure 130 mm[Hg] Dr. Nahum Elder Work Phone: [facility] 04-09-2022 16:02-0400 Body mass index (BMI) [Ratio] 25.2 kg/m2 Dr. Nahum Elder Work Phone: [facility] 04-09-2022 16:02-0400 Body weight 79.[address] Nahum Elder Work Phone: [facility] 04-09-2022 16:02-0400 Diastolic blood pressure 76 mm[Hg] Dr. Nahum Elder Work Phone: [facility] 04-09-2022 16:02-0400 Systolic blood pressure 121 mm[Hg] Dr. Nahum Elder Work Phone: [facility] 03-13-2022 09:17-0400 Body mass index (BMI) [Ratio] 24.2 kg/m2 Dr. Nahum Elder Work Phone: [facility] Work Phone: 03-13-2022 09:17-0400 Body weight 76.[address] Nahum Elder Work Phone: [facility] Work Phone: 03-13-2022 09:17-0400 Diastolic blood pressure 77 mm[Hg] Dr. Nahum Elder Work Phone: [facility] Work Phone: 03-13-2022 09:17-0400 Systolic blood pressure 135 mm[Hg] Dr. Nahum Elder Work Phone: [facility] Work Phone: Encounters Encounter Date Encounter Type Care Provider Facility Start: 12-26-2024 End: 12-26-[address] Mariposa Cleaning MD Work Phone: -[facility] Start: 12-26-2024 End: 12-26-2024 Patient encounter procedure Jossy Umaña CNM -[facility] Work Phone: Start: 12-26-2024 End: 12-26-2024 ambulatory Hilda [facility] Facility:[facility] Start: 12-01-2024 End: 12-01-2024 Patient encounter procedure Qian Millers DISEASE INTERVENTION SPECIALIST-C -[facility] Work Phone: Start: 12-01-2024 End: 12-01-[address] Mariposa Cleaning MD Work Phone: [facility] Work Phone: Start: 11-16-2024 End: 11-16-[address] Mariposa Cleaning MD Work Phone: [facility] Work Phone: Start: 11-16-2024 End: 11-16-2024 Patient encounter procedure Jossy mUaña CNM -[facility] Work Phone: Start: 11-16-2024 End: 11-16-2024 ambulatory Jossy Umaña Facility:[facility] Start: 11-03-2024 End: 11-03-[address] Mariposa Cleaning MD -[facility] Work Phone: Start: 11-03-2024 End: 11-03-[address] Mariposa Cleaning MD Work Phone: [facility] Work Phone: Start: 10-07-2024 End: 10-07-2024 Patient encounter procedure Jossy Umaña CNM -[facility] Work Phone: Start: 10-07-2024 End: 10-07-2024 ambulatory Hilda Jackson [facility] Facility:[facility] Start: 10-03-2024 End: 10-03-[address] Robyn Garza MD -[facility] Work Phone: Start: 10-03-2024 End: 10-03-2024 ambulatory Hilda [facility] Facility:[facility] Start: 09-09-2024 End: 09-09-[address] Nicolle Murray DO [facility] Work Phone: Start: 09-09-2024 End: 09-09-[address] Mariposa Cleaning MD Work Phone: [facility] Work Phone: Start: 09-09-2024 End: 09-09-2024 ambulatory Mariposa Cleaning Facility:[facility] Start: 10-10-2022 Non-patient / Non-visit Dr. Nahum Elder Work Phone: [facility] Start: 10-09-2022 Non-patient / Non-visit Dr. Nahum Elder Work Phone: [facility] Start: 10-09-2022 End: 10-10-2022 Evaluation and management of inpatient Dr. Nahum Elder Work Phone: [facility] Start: 10-08-2022 End: 10-08-[address] Nahum Elder Work Phone: [facility] Start: 10-03-2022 End: 10-03-[address] Nahum Elder Work Phone: [facility] Start: 09-29-2022 End: 09-29-[address] [facility] Start: 09-26-2022 End: 09-26-[address] Nahum Elder Work Phone: [facility] Work Phone: Start: 09-26-2022 End: 09-26-[address] Nahum Elder Work Phone: [facility] Start: 09-26-2022 End: 09-26-[address] Nahum Elder Work Phone: [facility] Start: 09-15-2022 End: 09-15-[address] Nahum Elder Work Phone: [facility] Start: 09-10-2022 End: 09-10-[address] Nahum Elder Work Phone: [facility] Start: 09-04-2022 End: 09-04-[address] Nahum Elder Work Phone: [facility] Start: 08-27-2022 End: 08-27-[address] Nahum Elder Work Phone: [facility] Start: 08-13-2022 End: 08-13-[address] Nahum Elder Work Phone: [facility] Start: 07-30-2022 End: 07-30-[address] Nahum Elder Work Phone: [facility] Start: 07-16-2022 End: 07-16-[address] Nahum Elder Work Phone: [facility] Work Phone: Start: 07-16-2022 End: 07-16-[address] Nahum Elder Work Phone: [facility] Start: 07-04-2022 End: 07-04-[address] Nahum Elder Work Phone: [facility] Start: 06-06-2022 End: 06-06-[address] Nahum Elder Work Phone: [facility] Start: 05-26-2022 End: 05-26-[address] Nahum Elder Work Phone: [facility] Work Phone: Start: 05-26-2022 End: 05-26-[address] Nahum Elder Work Phone: [facility] Start: 05-09-2022 End: 05-09-[address] Nahum Elder Work Phone: [facility] Start: 04-09-2022 End: 04-09-[address] Nahum Elder Work Phone: [facility] Start: 03-13-2022 End: 03-13-[address] Nahum Elder Work Phone: [facility] Start: 03-13-2022 End: 03-13-[address] [facility] Start: 02-25-[address] Nahum thacker Work Phone: [facility] Procedures Date Procedure Procedure Detail Performing Clinician Start: 12-26-2024 Serologic test for syphilis Dr. Mariposa Cleaning MD Work Phone: Start: 11-16-2024 Ultrasonography in f irst trimester Dr. Mariposa Cleaning MD Work Phone: Start: 09-09-[address] Jaki Cleaning MD Work Phone: Start: 09-09-2024 Hepatitis C antibody measurement Dr. Mariposa Cleaning MD Work Phone: Comment on above: Reactive: Presumptiv e evidence of antibodies to HCV. Follow CDC recommendations for supplemental testing.Non-Reactive: Antibodies to HCV were not detected; does not exclude the possibility of exposure to HCVReactive Results are presumptive evidence of antibodies to HCV. Follow CDC recommendations for supplemental testing.Order confirmation testing: HCV Quant by PCR testing - HCVPCR #[id number] Non Reactive: < 0.8 Equivocal: >/= 0.8 to < 1.0 Reactive: >/= 1.0The CDC requires that a reactive/equivocal HCV antibody result be sent out for confirmation. HCV Quant by PCR testing. Start: 09-09-[address] Mariposa Cleaning MD Work Phone: Comment on above: Antibody Result: Int erpretationNon-Reactive: Non- ImmuneReactive: ImmuneThe following results were obtained with the [employer] Rubella IgG assay. Results from assays of other manufacturers cannot be used interchangeably. Start: 09-09-2024 Serologic test for syphilis Dr. Mariposa Cleaning MD Work Phone: Start: 05-26-[address] Nahum Elder Work Phone: Group B Streptococcu s Culture Dr. Nahum Elder Work Phone: Urine culture Dr. Nahum ramirez Work Phone: Plan of Treatment Date Care Activity Detail Author Start: 12-26-2024 CBC W Auto Different ial panel - Blood [facility] Start: 12-26-2024 Measurement of gluco se 2 hours after glucose challenge for glucose tolerance test [facility] Start: 12-26-2024 Serologic test for syphilis [facility] Start: 12-26-2024 [facility] Start: 10-10-2022 Patient discharge [facility] Start: 10-09-2022 Administration of medication [facility] Start: 10-09-2022 Application of ice c ollar, cap or bag [facility] Start: 10-09-2022 Catheterization of vein [facility] Start: 10-09-2022 Introduction of urinary catheter [facility] Start: 10-09-2022 Measuring intake and output [facility] Start: 10-09-2022 Notification of physician [facility] Start: 10-09-2022 Procedure discontinued [facility] Start: 10-09-2022 Provision of activity privileges [facility] Start: 10-09-2022 Vital signs measurements [facility] Start: 10-09-2022 [facility] Start: 10-09-2022 Admission procedure [facility] Start: 08-27-2022 Patient referral [facility] Work Phone: CBC W Auto Different ial panel - Blood [facility] Erythrocyte mean cor puscular volume determination [facility] anatomy study [facility] Hematocrit [Volume F raction] of Blood [facility] Hemoglobin [Mass/volume] in Blood [facility] Leukocytes [#/volume] in Blood [facility] Mean corpuscular hem oglobin concentration determination [facility] Mean corpuscular hem oglobin determination [facility] Measurement of gluco se 2 hours after glucose challenge for glucose tolerance test [facility] Neutrophil count [facility] Neutrophil percent d ifferential count [facility] Patient referral [facility] Work Phone: Platelets [#/volume] in Blood [facility] Red blood cell count [facility] Red cell distributio n width determination [facility] Serologic test for syphilis [facility] Immunizations Immunization Date Immunization Notes Care Provider Fa [facility] 03-11-2024 influenza, seasonal, injectable, preservative free Dr. Mariposa Cleaning MD Work Phone: [facility] 04-03-2023 influenza, injectabl e, quadrivalent, preservative free Dr. Mariposa Cleaning MD Work Phone: [facility] 07-30-2022 tetanus toxoid, reduced diphtheria toxoid, and acellular pertussis vaccine, adsorbed Dr. Nahum Elder Work Phone: [facility] 03-26-2022 influenza, injectabl e, quadrivalent, preservative free Dr. Mariposa Cleaning MD Work Phone: [facility] 03-26-2022 influenza, seasonal, injectable Dr. Nahum Elder Work Phone: [facility] 03-21-2021 influenza, injectabl e, quadrivalent, preservative free Dr. Mariposa Cleaning MD Work Phone: [facility] 03-21-2021 influenza, seasonal, injectable [facility] 05-17-2020 influenza, injectabl e, quadrivalent, preservative free Dr. Mariposa Cleaning MD Work Phone: [facility] 05-17-2020 influenza, seasonal, injectable [facility] 11-04-2019 tetanus toxoid, reduced diphtheria toxoid, and acellular pertussis vaccine, adsorbed [facility] 03-03-2019 influenza, injectabl e, quadrivalent, preservative free Dr. Mariposa Cleaning MD Work Phone: [facility] 03-03-2019 influenza, seasonal, injectable [facility] 03-22-2018 influenza, injectabl e, quadrivalent, preservative free Dr. Mariposa Cleaning MD Work Phone: [facility] 03-22-2018 influenza, seasonal, injectable [facility] 03-04-2017 influenza, injectabl e, quadrivalent, preservative free Dr. Mariposa Cleaning MD Work Phone: [facility] 03-04-2017 influenza, seasonal, injectable [facility] 03-10-2016 hepatitis B vaccine, pediatric or pediatric/adolescent dosage [facility] 03-06-2016 influenza, injectabl e, quadrivalent, preservative free Dr. Mariposa Cleaning MD Work Phone: [facility] 03-06-2016 influenza, seasonal, injectable [facility] 08-20-2015 hepatitis B vaccine, pediatric or pediatric/adolescent dosage [facility] Payers Date Payer Category Payer Self-pay [id number] 2024 Unknown [id number] 2016 Unknown [id number] Unknown [id number] 2.16.8 [id number] Unknown [id number] 2.16.8 [id number] Unknown [id number] 2.16.8 [id number] Unknown [id number] 2.16.8 [id number] Unknown [id number] 2.16.8 [id number] Unknown [id number] 2.16.8 [id number] Unknown [id number] 2.16.8 [id number] Unknown [id number] 2.16.8 [id number] Unknown [id number] 2.16.8 [id number] Social History Date Type Detail [facility] Work Phone: Start: 1990 Sex Assigned At Female [facility] Start: 05-09-2022 End: 10-09-2022 Tobacco smoking status [facility] Unknown if ever smoked [facility] Start: 01-24-2020 None [facility] Start: 08-26-2024 [facility] Never smoked tobacco (finding) [facility] Start: 09-12-2024 Sex Female (finding) [facility] Goals Date Patient Goal Desired Activity /State Clinical Notes 10-09-2022 to 12-26-2024 Note Date & Type Note Facility 12-26-2024 Progress note [facility] 12-26-2024 Progress note Note Date/Time December 26, 2024 2:41pm [facility] [address], [address] [place] [address] OFFICE VISIT Date of Service: 12/26/24 MR#: [id number] Acct: [id number] Name: IVETTE FINNEY Rep #: [id number] : 1990 Provider: TIMBO Umaña Age/Sex: 34/F Location: [facility] Status: Signed Intake Vital Signs 11/03/24 10:08 12/01/24 09:36 12/26/24 14:31 Height 5 ft 10 in 5 ft 10 in 5 ft 10 in Weight: 195 lb 4 oz BMI 28.0 BP 120/72 Intake Visit Reasons: 26wk ob/glucose Chief Complaint: 26wk OB/Glucose Machine Bookkeeper Required: No Is patient in pain?: No Allergies No Known Allergies Allergy (Verified 12/26/24 14:30) Medications ?Medication ?Instructions ?Recorded ?Confirmed ?Type multivitamin no.47-iron fum 27 cap PO 08/26/24 5 History mg-folate no.1 1 mg-dha 300 mg capsule (PNV-DHA) Last Menstrual Period: 07/08/24 : No PFSH PFSH Medical History Segmental and somatic dysfunction of cervical region Segmental and somatic dysfunction of sacral region Back pain Segmental and somatic dysfunction of lumbar region Segmental and somatic dysfunction of thoracic region Surgical History [place] teeth extracted Family History Father CAD (coronary artery disease) Social History adopted: No household members: significant other and children housing: house number of children: 2 current occupational status: employed 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/hazards: No pets and animals: Yes pets and animals: dog(s) history of recent travel: No sexually active: Yes Smoking Status: Never smoker second hand exposure: No alcohol intake: former details: social- not while substance use type: does not use well-balanced diet: daily or most days caffeine: Yes Type: coffee Number of servings: 1 eating out: rarely or never during the past year weight has: remained stable what type of physical activity do you participate in: other details: [facility] Classes frequency: 1-2 times per week duration: 60-90 minutes/day jayesh/church: Denominational seatbelt use: always do you feel safe at home: Yes additional social 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 Date Name GA/Weeks Outcome Route Bth Weight Gen Labor Lgth Anesthesia Del Locatn Provider FOB 01/24/20 Betsy 39 live - full term 7#14oz Female none [facility] Dr. Tricia Mcgee 10/09/22 Katelynn 39 live - full term 9lbs Female none [facility] Dr. Jean HPI 26wk ob/glucose Details: IVETTE FINNEY is a 34 year old who presents for routine OB visit. OB Visit LEONARDA Calculator Estimated Delivery Date Method Current WG Current Estimate 04/04/25 Ultrasound #1 25w 6d Other Estimates 04/14/25 LMP (Certain) 24w 3d Expected Delivery Route/Plan Labor Preferences- CB/BF classes: [] labor support person: [] labor intervention preferences: [] pain management options preferred: [] cut cord/dad catch: [] : [] PP control planned: [] discussed possible routes of delivery and associated risks: [] special requests: [] Specific Issue/Plans Covid status: [] Flu vaccine: [] Tdap vaccine: [] Rhogam: [] LARC form signed: [] Problem list reviewed and updated with the most current plan of care details and appropriate orders placed. Relevant counseling for the gestational age provided. Continue routine care and follow up unless otherwise noted in visit notes/problem list details Initial Weight: Not Recorded Date -?-?-?-?-?-?-?-?-?-?-?-?- EGA Weight BP Urine Prot -?-?-?-?-?-?-?-?-?-?-?-?- Glucose FHR FuHt Pres Dilation -?-?-?-?-?-?-?-?-?-?-?-?- Effaced St Visit Note 09/09/24 -?-?-?-?-?-?-?-?-?-?-?-?- 10w 3d 176 lb 8 oz 128/77 -?-?-?-?-?-?-?-?-?-?-?-?- 168 -?-?-?-?-?-?-?-?-?-?-?-?- JV- CRL is off b y 10 days from LMP. new LEONARDA given. declines nipt. has complaint of hemorrhoids. 10/07/24 -?-?-?-?-?-?-?-?-?-?-?-?- 14w 3d 180 lb 4 oz 111/66 Nega tive -?-?-?-?-?-?-?-?-?-?-?-?- Negative 156 -?-?-?-?-?-?-?-?-?-?-?-?- KW- no vb/crampi ng. Declines AFP. anatomy US ordered 11/03/24 -?-?-?-?-?-?-?-?-?-?-?-?- 18w 2d 185 lb 2 oz 120/57 Nega tive -?-?-?-?-?-?-?-?-?-?-?-?- Negative 150 -?-?-?-?-?-?-?-?-?-?-?-?- SM- no vb crampi ng 12/01/24 -?-?-?-?-?-?-?-?-?-?-?-?- 22w 2d 192 lb 120/60 Negative -?-?-?-?-?-?-?-?-?-?-?-?- Negative 152 -?-?-?-?-?-?-?-?-?-?-?-?- MH-No VB. Fred Mariscal. Denies concerns 12/26/24 -?-?-?-?-?-?-?-?-?-?-?-?- 25w 6d 195 lb 4 oz 120/72 Nega tive -?-?-?-?-?-?-?-?-?-?-?-?- Negative 165 26 -?-?-?-?-?-?-?-?-?-?-?-?- KW- no vb/lof/ct xCk quintero fm. glucose today. ACOG First Trimester First Trimester: Desire for , Alcohol, Tobacco Cessation, Illicit/Recreational Drug/Substance Use, Intimate Partner Violence, Barriers to care, Unstable Housing, Communication Barriers, Environmental/Work Hazards, Anticipated Course of Care, Toxoplasmosis Precations, Use of Any medications, Sexual activity, Exercise, Dental Care, Sauna/Hot tub use, Seat Belt use, Childbirth classes/Hospital facilities, Travel, Indications for Ultrasound and Screening for Aneuploidy; Discussed Second Trimester Second Trimester: Signs and Symptoms of Labor, Selecting a care provider, Reproductive Life Planning & Contreception, Care Planning, Depression/Anxiety and Intimate Partner Violence; Discussed Tobacco Cessation Third Trimester Third Trimester: Pain Management Plans, Labor support person(s), Immediate Larc, Signs and Symptoms of Preeclampsia and Family Medical Leave or Disability Forms ROS Const Reports system reviewed and no additional complaints, except as documented Eyes Reports system reviewed and no additional complaints, except as documented ENT Reports system reviewed and no additional complaints, except as documented Card Reports system reviewed and no additional complaints, except as documented Resp Reports system reviewed and no additional complaints, except as documented GI Reports system reviewed and no additional complaints, except as documented, Denies nausea and Denies vomiting Reports system reviewed and no additional complaints, except as documented Musc Reports system reviewed and no additional complaints, except as documented Skin/Breast Reports system reviewed and no additional complaints, except as documented Neuro Yes system reviewed and no additional complaints, except as documented Psych Reports system reviewed and no additional complaints, except as documented Endo Reports system reviewed and no additional complaints, except as documented Roc/Lymph Reports system reviewed and no additional complaints, except as documented Aller/Immun Reports system reviewed and no additional complaints, except as documented Exam Const General: cooperative, healthy appearing and no acute distress Orientation: alert, awake and oriented x3 Neck Neck: normal visual inspection and full ROM Resp Effort & Inspection: normal respiratory effort, able to speak in complete sentences and symmetric chest movement GI Inspection: normal to inspection Palpation: soft and other Other: gravid Skin General: no rashes or lesions noted Neuro General: patient alert, patient awake and patient oriented x3 Cognition: normal cognition Speech: speech normal Gait: normal gait Motor: muscle tone normal throughout Extrem General: normal to inspection and full ROM Psych Appearance: grossly normal Mental Status: mental status grossly normal Mood: congruent mood Affect: normal affect Speech and Movement: speech and movement normal Attitude: cooperative Thought Process: normal Thought Content: normal Judgment: judgment good Results POC Urinalysis 2 Dip (Clinic) Office Urine Glucose Negative Last Edit by Italia Kiser on 12/26/24 14:36 Office Urine Protein Negative Last Edit by Italia Kiser on 12/26/24 14:36 Coding Level of Care Code OB Routine Diagnoses Hemorrhoids during in second trimester O22.42 Trimester: second trimester Encounter for supervision of other normal in second trimester Z34.82 Normal : other normal Trimester: second trimester 25 weeks gestation of Z3A.25 Weeks of gestation: 25 weeks Assessment and Plan Assessment and Plan (1) Hemorrhoids during : Status: Acute Qualifiers: Trimester: second trimester Qualified Code(s): O22.42 - Hemorrhoids in , second trimester (2) Supervision of normal : Status: Acute Qualifiers: Normal : other normal Trimester: second trimester Qualified Code(s): Z34.82 - Encounter for supervision of other normal , second trimester Comment: PRR,, LEONARDA 04/04/25, Katelynn Ramon, ROME Mcgee (3) : Status: Acute Qualifiers: Weeks of gestation: 25 weeks Qualified Code(s): Z3A.25 - 25 weeks gestation of Comment: declined NIPT & Carrier testing-normal anatomy. 13%-AC 23% Orders: Orders POC Urinalysis 2 Dip (Clinic) Today Plan Details Additional Comments: ACOG trimester education reviewed and updated. see problem list details for updated plan management information and see below for orders placed at this visit. GA appropriate handout given. 12/26/24 3360 <Electronically signed by Jossy davidson CNM> Date _ Jossy Umaña CNM Cosigner Signature: Date (if applicable) CC: ~ [employer] Work Phone: [phone] 640-573706-13-2025 Radiology Diagnostic study note [facility] Imaging Services [address] [place], [place] [id number] OB Anatomy w/ Transvaginal MR#: [id number] Acct: [id number] Name: IVETTE FINNEY #: [id number] : 1990 F 34 From: Imer Berumen MD PCP: Hilda Jackson Ed, DISEASE INTERVENTION SPECIALIST-C Status: REG CLI Study:OB Anatomy w/ Transvaginal Date of Exam : 11/16/24 Exam# [id number] Ordering Dr: Jossy Umaña CNM PROCEDURE: OB ANATOMY W/ TRANSVAGINAL 11/16/2024 REASON FOR EXAM: ANATOMY SCAN 18-20WKS TECHNIQUE: High resolution obstetric ultrasound performed using a 2D transducer. Standard views obtained, including biometry, anatomy survey, and Doppler studies. COMPARISON: None FINDINGS Number: 1 Position: Breech Placental Position: Posterior Placental Abnormalities: No evidence of previa. DIMENSIONS: Biparietal Diameter: 4.4 cm: 19 weeks and 1 day: 14 percentile/ Head Circumference: 16.2 cm: 19 weeks and 0 days: 5th percentile/ Abdominal Circumference: 14.1 cm: 19 weeks and 3 days: 23rd percentile/ Femur Length: 3 cm: 19 weeks and 3 days: 16 percentile/ ESTIMATED WEIGHT: 289 g plus/-43 g ESTIMATED WEIGHT PERCENTILE (24+ weeks): 13 ESTIMATED GESTATIONAL AGE: Baseline: 20 weeks and 1 day By Ultrasound: 19 weeks and 2 days ESTIMATED DATE OF DELIVERY: Baseline: March 27, 2025 By Ultrasound: April 10, 2025 BIOPHYSICAL ASSESSMENT: Amniotic Fluid Volume: 2.8 cm Amniotic Fluid Index: Within normal limits. Cardiac Motion: 151 beats per minute (average) Trunk and Limb Motion: Present. MATERNAL ANATOMY: Adnexa: Neither maternal ovary is successfully identified. Cervical Length (if measured): 4.8 cm ANATOMY: Spine: Unremarkable Cranium: Unremarkable Cerebellum: Unremarkable Cisterna Magna: Unremarkable Cavum Septum Pellucidi: Unremarkable Lateral Ventricles: Unremarkable Choroid Plexus: Unremarkable Midline Falx: Unremarkable Nuchal Fold: Unremarkable Heart: Unremarkable Stomach: Unremarkable Kidneys: Unremarkable Bladder: Unremarkable Umbilical Cord: Three-vessel cord Normal placental insertion. cord insertion not seen well. Extremities: Unremarkable US/OB Anatomy w/ Transvaginal IMPRESSION: Single live intrauterine gestation with a mean gestational age of 19 weeks and 2days. The head circumference measures 5th percentile. Reading Location: [id number] CC: TIMBO Umaña; [facility] DISEASE INTERVENTION SPECIALISTPavel Jackson ~ Allergist/Immunologist: Signed [facility]05-29-2025 Progress [facility] [address], [address] [place] [address] OFFICE VISIT Date of Service: 11/03/24 MR#: [id number] Acct: [id number] Name: IVETTE FINNEY Rep #: [id number] : 1990 Provider: Dr. 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 Is patient in pain?: No Feel stressed/tense/nervous/anxious/difficulty sleeping: not at all Allergies No Known Allergies Allergy (Verified 11/03/24 10:09) Medications ?Medication ?Instructions ?Recorded ?Confirmed ?Type multivitamin no.47-iron fum 27 cap PO 08/26/24 5 History mg-folate no.1 1 mg-dha 300 mg capsule (PNV-DHA) Last Menstrual Period: 07/08/24 Zika: Zika virus screening: Negative : No PFSH PFSH Medical History Segmental and somatic dysfunction of cervical region Segmental and somatic dysfunction of sacral region Back pain Segmental and somatic dysfunction of lumbar region Segmental and somatic dysfunction of thoracic region Surgical History [place] teeth extracted Family History Father CAD (coronary artery disease) Social History adopted: No household members: significant other and children housing: house number of children: 2 current occupational status: employed 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/hazards: No pets and animals: Yes pets and animals: dog(s) history of recent travel: No sexually active: Yes Smoking Status: Never smoker second hand exposure: No alcohol intake: former details: social- not while substance use type: does not use well-balanced diet: daily or most days caffeine: Yes Type: coffee Number of servings: 1 eating out: rarely or never during the past year weight has: remained stable what type of physical activity do you participate in: other details: [employer] Classes frequency: 1-2 times per week duration: 60-90 minutes/day jayesh/church: Denominational seatbelt use: always do you feel safe at home: Yes additional social 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 Date Name GA/Weeks Outcome Route Bth Weight Gen Labor Lgth Anesthesia Del Locatn Provider FOB 01/24/20 Betsy 39 live - full term 7#14oz Female none [facility] Dr. Tricia Mcgee 10/09/22 Katelynn 39 live - full term 9lbs Female none [facility] Dr. Jean HPI 18wk ob Details: IVETTE FINNEY is a 34 year old who presents for routine OB visit. OB Visit LEONARDA Calculator Estimated Delivery Date Method Current WG Current Estimate 04/04/25 Ultrasound #1 18w 2d Other Estimates 04/14/25 LMP (Certain) 16w 6d Expected Delivery Route/Plan Labor Preferences- CB/BF classes: [] labor support person: [] labor intervention preferences: [] pain management options preferred: [] cut cord/dad catch: [] : [] PP control planned: [] discussed possible routes of delivery and associated risks: [] special requests: [] Specific Issue/Plans Covid status: [] Flu vaccine: [] Tdap vaccine: [] Rhogam: [] LARC form signed: [] Problem list reviewed and updated with the most current plan of care details and appropriate ordersplaced. Relevant counseling for the gestational age provided. Continue routine care and follow up unless otherwise noted in visit notes/problem list details Initial Weight: Not Recorded Date -?-?-?-?-?-?-?-?-?-?-?-?- EGA Weight BP Urine Prot -?-?-?-?-?-?-?-?-?-?-?-?- Glucose FHR FuHt Pres Dilation -?-?-?-?-?-?-?-?-?-?-?-?- Effaced St Visit Note 09/09/24 -?-?-?-?-?-?-?-?-?-?-?-?- 10w 3d 176 lb 8 oz 128/77 -?-?-?-?-?-?-?-?-?-?-?-?- 168 -?-?-?-?-?-?-?-?-?-?-?-?- JV- CRL is off b y 10 days from LMP. new LEONARDA given. declines nipt. has complaint of hemorrhoids. 10/07/24 -?-?-?-?-?-?-?-?-?-?-?-?- 14w 3d 180 lb 4 oz 111/66 Nega tive -?-?-?-?-?-?-?-?-?-?-?-?- Negative 156 -?-?-?-?-?-?-?-?-?-?-?-?- KW- no vb/crampi ng. Declines AFP. anatomy US ordered 11/03/24 -?-?-?-?-?-?-?-?-?-?-?-?- 18w 2d 185 lb 2 oz 120/57 Nega tive -?-?-?-?-?-?-?-?-?-?-?-?- Negative 150 -?-?-?-?-?-?-?-?-?-?-?-?- SM- no vb crampi ng ACOG First Trimester First Trimester: Desire for , Alcohol, Tobacco Cessation, Illicit/Recreational Drug/Substance Use, Intimate Partner Violence, Barriers to care, Unstable Housing, Communication Barriers, Environmental/Work Hazards, Anticipated Course of Care, Toxoplasmosis Precations, Use of Any med ications, Sexual activity, Exercise, Dental Care, Sauna/Hot tub use, Seat Belt use, Childbirth classes/Hospital facilities, Travel, Indications for Ultrasound and Screening for Aneuploidy; Discussed Second Trimester Second Trimester: Signs and Symptoms of Labor, Selecting a care provider, Reproductive Life Planning & Contreception, Care Planning, Depression/Anxiety and Intimate Partner Violence; Discussed Tobacco Cessation Third Trimester Third Trimester: Pain Management Plans, Labor support person(s), Immediate Larc, Signs and Symptoms of Preeclampsia and Family Medical Leave or Disability Forms Results POC Urinalysis 2 Dip (Clinic) Office Urine Glucose Negative Last Edit by Qian Hodge on 11/03/24 10:13 Office Urine Protein Negative Last Edit by Qian Hodge on 11/03/24 10:13 Coding Level of Care Code OB Routine Diagnoses Hemorrhoids during O22.40 Supervision of normal Z34.90 18 weeks gestation of Z3A.18 Weeks of gestation: 18 weeks Assessment and Plan Assessment and Plan (1) Hemorrhoids during : Status: Acute (2) Supervision of normal : Status: Acute Comment: PRR,, LEONARDA 04/04/25, Katelynn Ramon BF Nate (3) : Status: Acute Qualifiers: Weeks of gestation: 18 weeks Qualified Code(s): Z3A.18 - 18 weeks gestation of Comment: declined NIPT & Carrier testing Orders: Orders POC Urinalysis 2 Dip (Clinic) Today 11/03/24 Bulmaro mckeon MD> Date _ Mariposa Cleaning MD [facility] Signature: Date (if applicable) CC: ~ [facility]04-04-2025 Evaluation note* Diagnosis Onset Date Resolution Status Admit Date acute September 09 8:46am Supervision of normal acut e September 09, 2024 8:46am [facility] Work Phone: 1([phone]) 426-756004-04-2025 Evaluation note* Diagnosis Onset Date Resolution Status Admit Date acute September 09 8:46am Supervision of normal acut e September 09, 2024 8:46am Hemorrhoids during acute October 03, 2024 8:13am Hemorrhoids during acute October 07, 2024 9:20am acute October 07, 2024 9:20am Supervision of normal acut e October 07, 2024 9:20am Hemorrhoids during acute November 03, 2024 10:05am acute November 03, 2024 10:05am Supervision of normal acut e November 03, 2024 10:05am [facility] Work Phone: [phone] Evaluation note* Diagnosis Onset Date Resolution Status Admit Date acute September 09 8:46am Supervision of normal acut e September 09, 2024 8:46am Hemorrhoids during acute October 03, 2024 8:13am Hemorrhoids during acute October 07, 2024 9:20am acute October 07, 2024 9:20am Supervision of normal acut e October 07, 2024 9:20am Hemorrhoids during acute November 03, 2024 10:05am acute November 03, 2024 10:05am Supervision of normal acut e November 03, 2024 10:05am Hemorrhoids during acute December 01, 2024 9:34am acute December 01 9:34am Supervision of normal acut e December 01, 2024 9:34am [facility] Work Phone: 1([phone]) 767-992604-04-2025 Evaluation note* Diagnosis Onset Date Resolution Status Admit Date acute September 09 8:46am Supervision of normal acut e September 09, 2024 8:46am Hemorrhoids during acute October 03, 2024 8:13am Hemorrhoids during acute October 07, 2024 9:20am acute October 07, 2024 9:20am Supervision of normal acut e October 07, 2024 9:20am Hemorrhoids during acute November 03, 2024 10:05am acute November 03, 2024 10:05am Supervision of normal acut e November 03, 2024 10:05am Hemorrhoids during acute December 01, 2024 9:34am acute December 01 9:34am Supervision of normal acut e December 01, 2024 9:34am Hemorrhoids during acute December 26, 2024 2:27pm acute December 26 2:27pm Supervision of normal acut e December 26, 2024 2:27pm [facility] Work Phone: [phone]) 970-621905-05-[address] Cleaning [facility] October 10, 2022 7:25am Note Date/Time October 10, 2022 7:24am [facility] Medical Records Department [address] [place] [address] Instructions for Home/Discharge Instructions 10/10/22 0723 MR#: [id number] Acct: [id number] Name: IVETTE FINNEY Rep #:[id number] : 1990 32 From: Mariposa carreno MD PCP: Dr. Nahum Elder MD Status:ADM I N Discharge Instructions Diet Discharge Diet: No restrictions Activity Discharge Activity: Return to Normal Activity, May Drive, May Shower and May Take a Tub Bath (in 4 weeks) May resume sexual activity in: 6-8 weeks (after seen by OB provider) Weight Bearing Status: Full weight bearing Lifting Restrictions: none Dressing / Incision Call your doctor if you observe: Fever of 101 or Higher, Inability to urinate, Using more than 1 pad per hour (for more than 2 hours in a row or more), Shortness of breath, Dizziness, Chest pain and - (headache not controlled with tylenol, change in vision) Follow Up Care When: in 6 weeks for visit, call the office to make the appointment. If you had elevated blood pressures call the office to be seen within 1 week. Test Results: Test results from this visit will be discussed in further detail at your follow- up appointment, if applicable. Discharge Plan Admission Admit Date/Time: 10/09/22 06:45 Attending Provider: Mariposa Cleaning Primary Care Provider: Nahum Elder Discharge Orders/Prescriptions Prescriptions: No Action vitamin#30 30 mg iron-10 mg iron-folic acid 1 mg-omg3 capsule 30 mg iron-10 mg iron-1 mg capsule 1 cap PO DAILY Referrals / Follow Up: Nahum Elder MD [Primary Care Provider] - Disposition Disposition (needs filled in before D/C Order can be placed): Home, Self Care 10/10/22724<Electronically signed by Mariposa Cleaning MD>Mariposa Cleaning MD CC: Dr. Nahum Elder MD ~ Signed [facility] Work Phone: 1(406) 360-513805-05-[address] Cleaning [facility] October 10, 2022 7:25am Note Date/Time October 10, 2022 7:25am [facility] Medical Records Department [address] [place] [address] Progress Note - OBGYN 10/10/22723 MR#: [id number] Acct: [id number] Name: IVETTE FINNEY Rep #:[id number] : 1990 32 From: Mariposa carreno MD PCP: Dr. Nahum Elder MD Status:ADM I N Location: [place] [address] Subjective Subjective Patient doing well without complaints. Tolerating PO. Ambulating and voiding without difficulty. infant feeding well. Denies chest pain, shortness of breath,calf pain/swelling, fevers, chills, lightheadedness. Objective Data Objective Data Vital Signs: Vital Signs Temp Pulse Resp BP Pulse Ox O2 Del Method 98.3 F 65 15 114/63 98 Room Air 10/10/22 04:44 10/10/22 04:44 10/10/22 04:44 10/10/22 04:44 10/09/22 07:18 10/10/22 04:44 Oxygen Delivery Method Room Air Weight: 218 lb 11.177 oz Body Mass Index (BMI) 36.3 Intake & Output: Intake and Output for Last 24 Hours 10/08/22 10/09/22 10/10/22 23:59 23:59 23:59 Intake Total 250 / 250 Output Total 50 / 50 Balance 200 / 200 Lab / Micro Data Result Diagrams: 10/09/22 08:25 Labs: Laboratory Results - last 24 hr 10/09/22 06:50: WBC Cancelled, Corrected WBC Cancelled, RBC Cancelled, Hgb Cancelled, Hct Cancelled, MCV Cancelled, MCH Cancelled, MCHC Cancelled, RDW Std Deviation Cancelled, RDW Coeff of Alisha Cancelled, Plt Count Cancelled, MPV Cancelled, Immature Gran % (Auto) Cancelled, Neut % (Auto) Cancelled, Lymph % (Auto) Cancelled, [place] % (Auto) Cancelled, Eos % (Auto) Cancelled, Baso % (Auto)Cancelled, Absolute Neuts (auto) Cancelled, Absolute Lymphs (auto) Cancelled, Total Counted Cancelled, Neutrophils % (Manual) Cancelled, Band Neutrophils % Cancelled, Lymphocytes % (Manual) Cancelled, Monocytes % (Manual) Cancelled, Eosinophils % (Manual) Cancelled, Basophils % (Manual) Cancelled, Metamyelocytes% Cancelled, Myelocytes % Cancelled, Promyelocytes % Cancelled, Blast Cells % Cancelled, Plasma Cell % (Manual) Cancelled, Other Cells % Cancelled, Nucleated RBC % Cancelled, Nucleated RBCs/100 WBC Cancelled, Differential Comment Cancelled, Diff Path Review Cancelled, Hypersegmented Neuts Cancelled, Atypical Lymphocytes Cancelled, Reactive Lymphocytes Cancelled, Smudge Cells Cancelled, Toxic Granulation Cancelled, Toxic Vacuolation Cancelled, Dohle Bodies Cancelled, Martínez Rods Cancelled, Platelet Estimate Cancelled, Plt Morphology Comment Cancelled, RBC Morphology Cancelled, Polychromasia Cancelled, Hypochromasia Cancelled, Poikilocytosis Cancelled, Basophilic Stippling Cancelled, Anisocytosis Cancelled, Microcytosis Cancelled, Macrocytosis Cancelled, Spherocytes Cancelled, Sickle Cells Cancelled, Target Cells Cancelled, Tear Drop Cells Cancelled, Ovalocytes Cancelled, Stomatocytes Cancelled, [place] Bodies Cancelled, Charlene Cells Cancelled, Bite Cells Cancelled, Crenated Cell Cancelled, Acanthocytes (Spur) Cancelled, Rouleaux Cancelled, Schistocytes Cancelled 10/09/22 06:50: Syphilis Total Ab Non-reactive 10/09/22 06:54: Blood Type O POSITIVE, Antibody Screen NEGATIVE 10/09/22 08:25: WBC 14.4 H, RBC 4.43, Hgb 12.6, Hct 39.5, MCV 89.2, MCH 28.4, MCHC 31.9 L, RDW Std Deviation 44.1 H, RDW Coeff of Alisha 13.5, Plt Count 240, MPV 10.3, Immature Gran % (Auto) 1.000 H, Neut % (Auto) 84.8 H, Lymph % (Auto) 9.0 L, [place] % (Auto) 4.8, Eos % (Auto) 0.0, Baso % (Auto) 0.4, Absolute Neuts (auto) 12.2 H, Absolute Lymphs (auto) 1.30, Nucleated RBC % 0 ROS Constitutional Constitutional: Reports systems reviewed and no addt'l complaints, except as documented Cardiovascular Cardiovascular: Reports systems reviewed and no addt'l complaints, except as documented Respiratory/Chest Respiratory/Chest: Reports systems reviewed and no addt'l complaints, except as documented Gastrointestinal Gastrointestinal: Reports systems reviewed and no addt'l complaints, except as documented Physical Exam Const alert, oriented x3 and no apparent distress HEENT Head and Scalp: atraumatic Resp normal respiratory effort GI soft to palpation and non-tender Bimanual Exam - Vag & Uterus: uterus non-tender Uterus Palpation: uterus fundus firm (below Umbilicus) Assessment & Plan (1) Vaginal delivery: PLAN: Plan s/p PPD # 1 1. routine post delivery care 2. breast feeding- support given 3. rh positive 4. rubella immune 10/10/22 0725 <Electronically signed by Mariposa Cleaning MD> Cosigner Signature (if applicable): CC: ~ Signed [facility] Work Phone: 1(266) 767-836105-04-2023 History and physical note Author Dr. 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 Nahum Elder MD Status:ADM I N Location: [id number] HPI - General General Date of Admission: 10/09/22 HPI Narrative IVETTE FINNEY, is a 32 y/o @38 weeks 4 days who presents to L&D in active labor, found to be completely dilated and membranes ruptured by the nurses. Maternal Data Information LEONARDA Calculator Estimated Delivery Date Method Current WG Current Estimate 10/19/22 [facility]) 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/hazards: No pets and animals: Yes pets and animals: dog(s) history of recent travel: No sexually active: Yes Smoking Status: Never smoker second hand exposure: No alcohol intake: former details: social substance use type: does not use caffeine: Yes Type: carbonated beverages Number of servings: 1 eating out: 4 or more times/week what type of physical activity do you participate in: other details: [employer] Classes frequency: 1-2 times per week jayesh/church: None seatbelt use: always do you feel safe at home: Yes additional social history: BF- [employer] (construction) 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 Date Name GA/Weeks Outcome Route Bth Weight Infant Gen Labor Lgth Anesthesia Del Locatn Provider FOB 01/24/20 Betsy 39 live - full term Female [facility] Dr. Clarke Visit Details Expected Delivery Route/Plan Labor Preferences- CB/BF classes: just breathe labor support person: everardo labor intervention preferences: [] pain management options preferred: natural cut cord/dad catch: dad wants to catch : yes PP control planned: discussed discussed possible routes of delivery and associated risks: [] special requests: [] Plans Covid status: discussed Flu vaccine: discussed Tdap vaccine: given Rhogam: NA LARC form signed: yes Problem list reviewed and updated with the most current plan of care details and appropriate orders placed. Relevant counseling for the gestational age provided. Continue routine care and follow up unless otherwise noted in visit notes/problem list details OB Flowsheet Initial Weight: Not Recorded Date -?-?-?-?-?-?-?-?-?-?-?-?- EGA Weight BP Urine Prot -?-?-?-?-?-?-?-?-?-?-?-?- Glucose FHR FuHt Pres Dilation -?-?-?-?-?-?-?-?-?-?-?-?- Effaced St Visit Note 03/13/22 -?-?-?-?-?-?-?-?-?-?-?-?- 8w 4d 169 lb 135/77 -?-?-?-?-?-?-?-?-?-?-?-?- 180 -?-?-?-?-?-?-?-?-?-?-?-?- SM- CRL 2.27cm c ons with LMP 04/09/22 -?-?-?-?-?-?-?-?-?-?-?-?- 12w 3d 176 lb 121/76 Negative -?-?-?-?-?-?-?-?-?-?-?-?- Negative 159 -?-?-?-?-?-?-?-?-?-?-?-?- JV- no complaint s today. pnl reviewed. 05/09/22 -?-?-?-?-?-?-?-?-?-?-?-?- 16w 5d 180 lb 130/70 Negative -?-?-?-?-?-?-?-?-?-?-?-?- Negative 150 -?-?-?-?-?-?-?-?-?-?-?-?- SM- no vb crampi ng 06/06/22 -?-?-?-?-?-?-?-?-?-?-?-?- 20w 5d 190 lb 2 oz 114/63 Nega tive -?-?-?-?--?-?-?-?-?-?-?-?- Negative 155 -?-?-?-?-?-?-?-?-?-?-?-?- SM- no vb lof go od fm no reugalr ctx reveiwed US results 07/04/22 -?-?-?-?-?-?-?-?-?-?-?-?- 24w 5d 202 lb 2 oz 112/67 Nega tive -?-?-?-?-?-?-?-?-?-?-?-?- Negative 150 24 Cephalic -?-?-?-?-?-?-?-?-?-?-?-?- JV- no lof, vagi nal bleeding, or dec fm. 07/30/22 -?-?-?-?-?-?-?-?-?-?-?-?- 28w 3d 207 lb 4 oz 102/6 Nega tive -?-?-?-?-?-?-?-?-?-?-?-?- Negative 152 29 -?-?-?-?-?--?-?-?-?-?-?-?- MH-No VB, LOF. [facility] Tdap 08/13/22 -?-?-?-?-?-?-?-?-?-?-?-?- 30w 3d 207 lb 4 oz 100/66 Nega tive -?-?-?-?-?-?-?-?-?-?-?-?- Negative 148 30 -?-?-?-?-?-?-?-?-?-?-?-?- LC- normal 28 we ek labs. good fm. no ctx/lof/vb. 08/27/22 -?-?-?-?-?-?-?-?-?-?-?-?- 32w 3d 213 lb 8 oz 109/70 Nega tive -?-?-?-?-?-?-?-?-?-?-?-?- Negative 150 34 -?-?-?-?-?-?-?-?-?-?-?-?- JV- normal 28 we ek labs . has sciatic nerve pain. wants referral to DR. Sullivan. 09/10/22 -?-?-?-?-?-?-?-?-?-?-?-?- 34w 3d 214 lb 9.6 oz 116/74 Ne gative -?-?-?-?-?-?-?-?-?-?-?-?- Negative 154 35 -?--?-?-?-?-?-?-?-?-?-?-?- MH-No VB, lof. G ood FM Denies concerns 09/26/22 -?-?-?-?-?-?-?-?-?-?-?-?- 36w 5d 218 lb 2 oz 118/76 -?-?-?-?-?-?-?-?-?-?-?-?- 145 37 -?-?-?-?-?-?-?-?-?-?-?-?- SM- no vb lof go od fm no regular ctx gbs 10/03/22 -?-?-?-?-?-?-?-?-?-?-?-?- 37w 5d 218 lb 8 oz 119/78 Nega tive -?-?-?-?-?-?-?-?-?-?-?-?- Negative 141 37 Cephalic 2 .5 -?-?-?-?-?-?-?-?-?-?-?-?- 60 -2 JV- no lof , vaginal bleeding, or dec fm. no complaints. labor precautions discussed. has her diaper green party this weekend. 10/08/22 -?-?-?-?-?-?-?-?-?-?-?-?- 38w 3d 223 lb 113/79 Trace -?-?-?-?-?-?-?-?-?-?-?-?- Negative 155 38 Cephalic 3 -?-?-?-?-?-?-?-?-?-?-?-?- 70 -2 LC- no lof /vb/ctx. good fm. no concerns. ROS Constitutional Constitutional: Denies change in weight, fatigue, fever(s), headache(s), poor appetite or weakness Eyes Eyes: Denies blurry vision, change in vision, seeing flashes or spots in vision ENT HEENT: Denies dizziness, headache(s), loss taste/smell or sore throat Cardiovascular Cardiovascular: Denies chest pain, dizziness, dyspnea, irregular heart rhythm, leg edema, palpitations, rapid heart rate or vomiting Respiratory/Chest Respiratory/Chest: Denies chest tightness, cough, dyspnea or breast pain Gastrointestinal Gastrointestinal: Denies abdominal pain, anorexia, constipation, cramping, diarrhea, hemorrhoids, vomiting or weight changes Genitourinary Genitourinary: Denies dysuria, flank pain, genital lesions, genital pain, urinary frequency or urinary urgency Musculoskeletal Musculoskeletal: Denies back pain, difficulty walking, joint pain, limited range of motion, muscle cramps or numbness Integumentary Integumentary: Denies lesions or unusual bruising Neurologic Neurologic: Denies abnormal movements, abnormal speech, dizziness, numbness, seizure-like activity or syncope Psychiatric Psychiatric: Denies anxiety, behavioral changes, change in appetite, change in libido, cognitive impairment, confusion, depression, difficulty concentrating, hallucinations or suicidal thoughts Endocrine Endocrinology: Denies excessive sweating, polydipsia or polyuria Hematologic/Lymphatic Hematologic/Lymphatic: Denies easy bleeding, easy bruising or lymphadenopathy Allergic/Immunologic Allergic/Immunologic: Denies itchy eyes, lip swelling, seasonal rhinorrhea, rhinitis, throat swelling, tongue swelling, eczemia, wheezing or asthma Vital Signs Vital Signs Vital Signs: 10/09/22 06:38 10/09/22 06:38 10/09/22 06:38 Temperature 96.4 F L Pulse Rate 88 Blood Pressure 116/79 BP Systolic 116 BP Diastolic 79 Pulse Ox 10/09/22 07:18 10/09/22 07:18 10/09/22 07:18 Temperature Pulse Rate 83 Blood Pressure 123/76 H BP Systolic 123 BP Diastolic 76 Pulse Ox 98 10/09/22 07:18 10/09/22 07:33 10/09/22 07:33 Temperature 98.6 F Pulse Rate 77 Blood Pressure 121/82 H BP Systolic 121 BP Diastolic 82 Pulse Ox 10/09/22 07:48 10/09/22 07:48 10/09/22 08:03 Temperature Pulse Rate 77 Blood Pressure 111/77 134/85 H BP Systolic 111 134 BP Diastolic 77 85 Pulse Ox 10/09/22 08:03 10/09/22 08:18 10/09/22 08:18 Temperature Pulse Rate 80 82 Blood Pressure 128/80 H BP Systolic 128 BP Diastolic 80 Pulse Ox Weight Weight: 218 lb 11.177 oz Body Mass Index (BMI) 36.3 Physical Exam Const alert, oriented x3, no apparent distress and healthy appearing General Appearance: cooperative; Negative for anxious HEENT normocephalic Face and Sinus: normal facial exam Eyes EOMs intact bilaterally and no scleral icterus General Eye: normal appearance of both eyes Neck full ROM and supple Lymph Lymphatic: no lymphadenopathy noted Chest Chest: abnormal inspection of the chest Resp normal respiratory effort Effort and Inspection: able to speak in complete sentences Cardio regular rate GI soft to palpation and non-tender Inspection: gravid Palpation: soft; Negative for tender external exam normal Back/Spine no CVA tenderness Extremity normal to inspection, full ROM and no clubbing, cyanosis or edema General Extremity: Negative for calf tenderness or edema Skin Lesions: no lesions Rashes: no rashes Psych mental status grossly normal Labs Labs Labs: Blood Type O POSITIVE Antibody Screen NEGATIVE Hct 36.2 % (37-47) L Hgb 11.8 g/dL (12.0-15.0) L Obstetrics US Syphilis Total Ab Non-reactive Rubella IgG Antibody Reactive (Nonreactive) Hep Bs Antigen Non-Reactive (Nonreactive) Chlamydia DNA ([facility]) Negative (Negative) Neisseria gonorrhoeae DNA ([facility]) Negative (Negative) HIV 1&2 Antibody Non-Reactive (Nonreactive) Glucose 1 Hr 50 gm 68 mg/dL (70-140) L Rhogam given: No Assessment & Plan (1) Supervision of normal : COMMENT: PRR , LEONARDA 10/19/22 PC Betsy, Boyfriend- Everardo ([place]) (2) : QUALIFIERS: Weeks of gestation: 38 weeks Qualified Code(s): Z3A.38 - 38 weeks gestation of COMMENT: GBS neg, anatomy nl, declined genetic & carrier testing, afp. 2/8 nl GCT PLAN: Plan Patient presents IAL, plan expectant management for Pain management: none. GBS negative . Management of any complications: none I have reviewed the [facility] and made any clinically relevant updates. 10/09/22828 <Electronically signed by Nicolle Murray DO> Cosigner Signature (if applicable): CC: Dr. Nicolle Murray DO; Dr. Nahum Elder MD~ Signed [facility] Work Phone: 1(238) 891-567005-04-2023 Procedure [facility] Evaluation noteNo assessment information availableCorey Hospital Work Phone: Evaluation note* Diagnosis Onset Date Resolution Status Back pain acute acute Segmental and somatic dysfunction of lumbar region acute Segmental and somatic dysfunction of thoracic region acute Supervision of normal acute Back pain acute acute Supervision of normal acute Back pain acute acute Segmental and somatic dysfunction of lumbar region acute Segmental and somatic dysfunction of thoracic region acute Supervision of normal [facility] Work Phone: Evaluation note* Diagnosis Onset Date Resolution Status Back pain acute acute Supervision of normal acute Back pain acute acute Segmental and somatic dysfunction of lumbar region acute Segmental and somatic dysfunction of thoracic region acute Supervision of normal acute Back pain acute acute Segmental and somatic dysfunction of lumbar region acute Segmental and somatic dysfunction of thoracic region acute Supervision of normal acute Back pain acute acute Segmental and somatic dysfunction of lumbar region acute Segmental and somatic dysfunction of thoracic region acute Supervision of normal [facility] Work Phone: Evaluation note* Diagnosis Onset Date Resolution Status Back pain acute acute Segmental and somatic dysfunction of lumbar region acute Segmental and somatic dysfunction of thoracic region acute Supervision of normal acute Back pain acute acute Segmental and somatic dysfunction of lumbar region acute Segmental and somatic dysfunction of thoracic region acute Supervision of normal acute acute Supervision of normal acute Back pain acute acute Supervision of normal acute acute Supervision of normal acute Back pain acute Segmental and somatic dysfunction of cervical region acute Segmental and somatic dysfunction of lumbar region acute Segmental and somatic dysfunction of sacral region acute Segmental and somatic dysfunction of thoracic region acute acute Supervision of normal acute Back pain acute Segmental and somatic dysfunction of cervical region acute Segmental and somatic dysfunction of lumbar region acute Segmental and somatic dysfunction of sacral region acute Segmental and somatic dysfunction of thoracic region acute Back pain acute acute Segmental and somatic dysfunction of cervical region acute Segmental and somatic dysfunction of lumbar region acute Segmental and somatic dysfunction of sacral region acute Segmental and somatic dysfunction of thoracic region acute Supervision of normal acute Back pain acute Segmental and somatic dysfunction of cervical region acute Segmental and somatic dysfunction of lumbar region acute Segmental and somatic dysfunction of sacral region acute Segmental and somatic dysfunction of thoracic region acute [facility] Work Phone: Evaluation note* Diagnosis Onset Date Resolution Status Back pain acute acute Segmental and somatic dysfunction of lumbar region acute Segmental and somatic dysfunction of thoracic region acute Supervision of normal acute acute Supervision of normal acute Back pain acute acute Supervision of normal acute acute Supervision of normal acute Back pain acute Segmental and somatic dysfunction of cervical region acute Segmental and somatic dysfunction of lumbar region acute Segmental and somatic dysfunction of sacral region acute Segmental and somatic dysfunction of thoracic region acute acute Supervision of normal acute Back pain acute Segmental and somatic dysfunction of cervical region acute Segmental and somatic dysfunction of lumbar region acute Segmental and somatic dysfunction of sacral region acute Segmental and somatic dysfunction of thoracic region acute Back pain acute acute Segmental and somatic dysfunction of cervical region acute Segmental and somatic dysfunction of lumbar region acute Segmental and somatic dysfunction of sacral region acute Segmental and somatic dysfunction of thoracic region acute Supervision of normal acute Back pain acute Segmental and somatic dysfunction of cervical region acute Segmental and somatic dysfunction of lumbar region acute Segmental and somatic dysfunction of sacral region acute Segmental and somatic dysfunction of thoracic region acute acute Supervision of normal acute Back pain acute acute Segmental and somatic dysfunction of cervical region acute Segmental and somatic dysfunction of lumbar region acute Segmental and somatic dysfunction of sacral region acute Segmental and somatic dysfunction of thoracic region acute Supervision of normal acute acute Supervision of normal acute Vaginal delivery acute [facility] Work Phone: Progress note Author Mariposa Cleaning [facility] Note Date/Time November 03, 2024 10:38 am [facility] [address] [place] [address], [address] [place] [address] OFFICE VISIT Date of Service: 11/03/24 MR#: [id number] Acct: [id number] Name: IVETTE FINNEY Rep #: [id number] : 1990 Provider: Dr. 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 Is patient in pain?: No Feel stressed/tense/nervous/anxious/difficulty sleeping: not at all Allergies No Known Allergies Allergy (Verified 11/03/24 10:09) Medications ?Medication ?Instructions ?Recorded ?Confirmed ?Type multivitamin no.47-iron fum 27 cap PO 08/26/24 5 History mg-folate no.1 1 mg-dha 300 mg capsule (PNV-DHA) Last Menstrual Period: 07/08/24 Zika: Zika virus screening: Negative : No PFSH PFSH Medical History Segmental and somatic dysfunction of cervical region Segmental and somatic dysfunction of sacral region Back pain Segmental and somatic dysfunction of lumbar region Segmental and somatic dysfunction of thoracic region Surgical History [place] teeth extracted Family History Father CAD (coronary artery disease) Social History adopted: No household members: significant other and children housing: house number of children: 2 current occupational status: employed 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/hazards: No pets and animals: Yes pets and animals: dog(s) history of recent travel: No sexually active: Yes Smoking Status: Never smoker second hand exposure: No alcohol intake: former details: social- not while substance use type: does not use well-balanced diet: daily or most days caffeine: Yes Type: coffee Number of servings: 1 eating out: rarely or never during the past year weight has: remained stable what type of physical activity do you participate in: other details: [employer] Classes frequency: 1-2 times per week duration: 60-90 minutes/day jayesh/church: Denominational seatbelt use: always do you feel safe at home: Yes 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 Date Name GA/Weeks Outcome Route Bth Weight Gen Labor Lgth Anesthesia Del Locatn Provider FOB 01/24/20 Betsy 39 live - full term 7#14oz Female none [facility] Dr. Tricia Mcgee 10/09/22 Katelynn 39 live - full term 9lbs Female none [facility] Dr. Jean HPI 18wk ob Details: IVETTE FINNEY is a 34 year old who presents for routine OB visit. OB Visit LEONARDA Calculator Estimated Delivery Date Method Current WG Current Estimate 04/04/25 Ultrasound #1 18w 2d Other Estimates 04/14/25 LMP (Certain) 16w 6d Expected Delivery Route/Plan Labor Preferences- CB/BF classes: [] labor support person: [] labor intervention preferences: [] pain management options preferred: [] cut cord/dad catch: [] : [] PP control planned: [] discussed possible routes of delivery and associated risks: [] special requests: [] Specific Issue/Plans Covid status: [] Flu vaccine: [] Tdap vaccine: [] Rhogam: [] LARC form signed: [] Problem list reviewed and updated with the most current plan of care details and appropriate orders placed. Relevant counseling for the gestational age provided. Continue routine care and follow up unless otherwise noted in visit notes/problem list details Initial Weight: Not Recorded Date -?-?-?-?-?-?-?-?-?-?-?-?- EGA Weight BP Urine Prot -?-?-?-?-?-?-?-?-?-?-?-?- Glucose FHR FuHt Pres Dilation -?-?-?-?-?-?-?-?-?-?-?-?- Effaced St Visit Note 09/09/24 -?-?-?-?-?-?-?-?-?-?-?-?- 10w 3d 176 lb 8 oz 128/77 -?-?-?-?-?-?-?-?-?-?-?-?- 168 -?-?-?-?-?-?-?-?-?-?-?-?- JV- CRL is off b y 10 days from LMP. new LEONARDA given. declines nipt. has complaint of hemorrhoids. 10/07/24 -?-?-?-?-?-?-?-?-?-?-?-?- 14w 3d 180 lb 4 oz 111/66 Nega tive -?-?-?-?-?-?-?-?-?-?-?-?- Negative 156 -?-?-?-?-?-?-?-?-?-?-?-?- KW- no vb/crampi ng. Declines AFP. anatomy US ordered 11/03/24 -?-?-?-?-?-?-?-?-?-?-?-?- 18w 2d 185 lb 2 oz 120/57 Nega tive -?-?-?-?-?-?-?-?-?-?-?-?- Negative 150 -?-?-?-?-?-?-?-?-?-?-?-?- SM- no vb crampi ng ACOG First Trimester First Trimester: Desire for , Alcohol, Tobacco Cessation, Illicit/Recreational Drug/Substance Use, Intimate Partner Violence, Barriers to care, Unstable Housing, Communication Barriers, Environmental/Work Hazards, Anticipated Course of Care, Toxoplasmosis Precations, Use of Any medications, Sexual activity, Exercise, Dental Care, Sauna/Hot tub use, Seat Belt use, Childbirth classes/Hospital facilities, Travel, Indications for Ultrasound and Screening for Aneuploidy; Discussed Second Trimester Second Trimester: Signs and Symptoms of Labor, Selecting a care provider, Reproductive Life Planning & Contreception, Care Planning, Depression/Anxiety and Intimate Partner Violence; Discussed Tobacco Cessation Third Trimester Third Trimester: Pain Management Plans, Labor support person(s), Immediate Larc, Signs and Symptoms of Preeclampsia and Family Medical Leave or Disability Forms Results POC Urinalysis 2 Dip (Clinic) Office Urine Glucose Negative Last Edit by Qian Hodge on 11/03/24 10:13 Office Urine Protein Negative Last Edit by Qian Hodge on 11/03/24 10:13 Coding Level of Care Code OB Routine Diagnoses Hemorrhoids during O22.40 Supervision of normal Z34.90 18 weeks gestation of Z3A.18 Weeks of gestation: 18 weeks Assessment and Plan Assessment and Plan (1) Hemorrhoids during : Status: Acute (2) Supervision of normal : Status: Acute Comment: PRR,, LEONARDA 04/04/25, PC Katelynn Meyer, [place] Mcgee (3) : Status: Acute Qualifiers: Weeks of gestation: 18 weeks Qualified Code(s): Z3A.18 - 18 weeks gestation of Comment: declined NIPT & Carrier testing Orders: Orders POC Urinalysis 2 Dip (Clinic) Today 11/03/24 1038 <Electronically signed by Mariposa mckeon MD> Date _ Mariposa Cleaning MD [facility] Signature: Date (if applicable) CC: ~ [facility] Work Phone: Reason for referral (narrative)No reason for referral information availableWCleveland Clinic [facility] Work Phone: Chief Complaint and Reason for Visit Chief Complaint NOB LMP 8/7 12 WK OB 16 WK OB leave so 20 ANATOMY Reason for Visit Back pain Segmental and somatic dysfunction of lumbar region Segmental and somatic dysfunction of thoracic region Supervision of normal Back pain Supervision of normal Back pain Segmental and somatic dysfunction of lumbar region Segmental and somatic dysfunction of thoracic region Supervision of normal Chief Complaint 12 WK OB 16 WK OB leave so 20 ANATOMY 20 WK OB 24 WK OB E ORDERS Reason for Visit Back pain Supervision of normal Back pain Segmental and somatic dysfunction of lumbar region Segmental and somatic dysfunction of thoracic region Supervision of normal Back pain Segmental and somatic dysfunction of lumbar region Segmental and somatic dysfunction of thoracic region Supervision of normal Back pain Segmental and somatic dysfunction of lumbar region Segmental and somatic dysfunction of thoracic region Supervision of normal Chief Complaint 20 WK OB 24 WK OB E ORDERS 28 WK OB 30 WK OB 32 WK OB REEVAL ADJUSTMENT 34 WK OB ADJUSTMENT 36 WK OB ADJUSTMENT Reason for Visit Back pain Segmental and somatic dysfunction of lumbar region Segmental and somatic dysfunction of thoracic region Supervision of normal Back pain Segmental and somatic dysfunction of lumbar region Segmental and somatic dysfunction of thoracic region Supervision of normal Supervision of normal Back pain Supervision of normal Supervision of normal Back pain Segmental and somatic dysfunction of cervical region Segmental and somatic dysfunction of lumbar region Segmental and somatic dysfunction of sacral region Segmental and somatic dysfunction of thoracic region Supervision of normal Back pain Segmental and somatic dysfunction of cervical region Segmental and somatic dysfunction of lumbar region Segmental and somatic dysfunction of sacral region Segmental and somatic dysfunction of thoracic region Back pain Segmental and somatic dysfunction of cervical region Segmental and somatic dysfunction of lumbar region Segmental and somatic dysfunction of sacral region Segmental and somatic dysfunction of thoracic region Supervision of normal Back pain Segmental and somatic dysfunction of cervical region Segmental and somatic dysfunction of lumbar region Segmental and somatic dysfunction of sacral region Segmental and somatic dysfunction of thoracic region Chief Complaint 24 WK OB E ORDERS 28 WK OB 30 WK OB 32 WK OB REEVAL ADJUSTMENT 34 WK OB ADJUSTMENT 36 WK OB ADJUSTMENT 37 WK OB 38 WK OB MATERNITY VAG DEL MATERNITY VAG DEL MATERNITY VAG DEL Reason for Visit Back pain Segmental and somatic dysfunction of lumbar region Segmental and somatic dysfunction of thoracic region Supervision of normal Supervision of normal Back pain Supervision of normal Supervision of normal Back pain Segmental and somatic dysfunction of cervical region Segmental and somatic dysfunction of lumbar region Segmental and somatic dysfunction of sacral region Segmental and somatic dysfunction of thoracic region Supervision of normal Back pain Segmental and somatic dysfunction of cervical region Segmental and somatic dysfunction of lumbar region Segmental and somatic dysfunction of sacral region Segmental and somatic dysfunction of thoracic region Back pain Segmental and somatic dysfunction of cervical region Segmental and somatic dysfunction of lumbar region Segmental and somatic dysfunction of sacral region Segmental and somatic dysfunction of thoracic region Supervision of normal Back pain Segmental and somatic dysfunction of cervical region Segmental and somatic dysfunction of lumbar region Segmental and somatic dysfunction of sacral region Segmental and somatic dysfunction of thoracic region Supervision of normal Back pain Segmental and somatic dysfunction of cervical region Segmental and somatic dysfunction of lumbar region Segmental and somatic dysfunction of sacral region Segmental and somatic dysfunction of thoracic region Supervision of normal Supervision of normal Vaginal delivery Chief Complaint Admit Date 9WK NOB LMP 07/08 LEONARDA 04/14September 09 8:46am Reason for Visit Admit Date September 09, 2024 8:46 am Supervision of normal September 8:46am Chief Complaint Admit Date 9WK NOB LMP 07/08 LEONARDA 04/14September 09 8:46am HEMORRHOIDS October 03, 2024 8:1 3am 14wk ob October 07, 2024 9:20am 18wk ob November 03, 2024 10:05 am Reason for Visit Admit Date September 09, 2024 8:46 am Supervision of normal September 8:46am Hemorrhoids during October 03, 2024 8:13am Hemorrhoids during October 07 9:20am October 07, 2024 9:20am Supervision of normal October 07, 2024 9:20am Hemorrhoids during November 03, 2 025 10:05am November 03, 2024 10:05 am Supervision of normal October 10:05am Chief Complaint Admit Date 9WK NOB LMP 07/08 LEONARDA 04/14September 09 8:46am HEMORRHOIDS October 03, 2024 8:1 3am 14wk ob October 07, 2024 9:20am 18wk ob November 03, 2024 10:05 am ANATOMY SCAN November 16, 2024 7:53 am Chief Complaint Admit Date 9WK NOB LMP 07/08 LEONARDA 04/14September 09 8:46am HEMORRHOIDS October 03, 2024 8:1 3am 14wk ob October 07, 2024 9:20am 18wk ob November 03, 2024 10:05 am ANATOMY SCAN November 16, 2024 7:53 am 22wk ob December 01, 2024 9:34 am Reason for Visit Admit Date September 09, 2024 8:46 am Supervision of normal September 8:46am Hemorrhoids during October 03, 2024 8:13am Hemorrhoids during October 07 9:20am October 07, 2024 9:20am Supervision of normal October 07, 2024 9:20am Hemorrhoids during November 03, 2 025 10:05am November 03, 2024 10:05 am Supervision of normal October 10:05am Hemorrhoids during December 01, 2024 9:34am December 01, 2024 9:34 am Supervision of normal November 9:34am Chief Complaint Admit Date 9WK NOB LMP 07/08 LEONARDA 04/14September 09 8:46am HEMORRHOIDS October 03, 2024 8:1 3am 14wk ob October 07, 2024 9:20am 18wk ob November 03, 2024 10:05 am ANATOMY SCAN November 16, 2024 7:53 am 22wk ob December 01, 2024 9:34 am 26wk ob/glucose December 26, 2024 2:27 pm Reason for Visit Admit Date September 09, 2024 8:46 am Supervision of normal September 8:46am Hemorrhoids during October 03, 2024 8:13am Hemorrhoids during October 07 9:20am October 07, 2024 9:20am Supervision of normal October 07, 2024 9:20am Hemorrhoids during November 03, 2 025 10:05am November 03, 2024 10:05 am Supervision of normal October 10:05am Hemorrhoids during December 01, 2024 9:34am December 01, 2024 9:34 am Supervision of normal November 9:34am Hemorrhoids during December 26, 2024 2:27pm December 26, 2024 2:27 pm Supervision of normal December 2:27pm Advance Directives No Advanced Directives Records Found Advance Directive Response Recorded Date/ Time Living Will No January 23 0 7:01pm Power of Switching Clerk No January 23 7:01pm Advance Directive Response Recorded Date/ Time Living Will No January 23 0 8:01pm Power of Switching Clerk No January 23 8:01pm Advance Directive Response Recorded Date/ Time Living Will No October 09, 2022 7: 46am Power of Switching Clerk No October 09, 2022 7:46am Summary Purpose Family History No Family History Records Found Additional Source Comments Goals (unrecognized section and content) Goals may be documented in a n alternate section Care Teams (unrecognized sec tion and content) Team Status: Active Member Role Status Dates Dr. Nahum Elder MD Family Provider Active Dr. Nahum Elder MD Primary Care Provider Active Team Status: Inactive Member Role Status Dates Dr. Nahum Elder MD Primary Care Provider, Referring Provider Active Dr. Nicolle Murray DO Attending Provider Activ e Team Status: Inactive Member Role Status Dates Dr. Nahum Elder MD Primary Care Provider, Referring Provider Active Dr. Mariposa Cleaning MD Attending Provider Active Team Status: Inactive Member Role Status Dates Dr. Nahum Elder MD Primary Care Provider Active Dr. Mariposa Cleaning MD Attending Provider Active Team Status: Inactive Member Role Status Dates Dr. Nahum Elder MD Primary Care Provider Active Dr. Nicolle Murray DO Attending Provider, Refe rring Provider Active Team Status: Inactive Member Role Status Dates Dr. Nahum Elder MD Primary Care Provider, Referring Provider Active Qian Phelps DISEASE INTERVENTION SPECIALIST, DISEASE INTERVENTION SPECIALIST-C Attending Provider Active Team Status: Inactive Member Role Status Dates Dr. Nahum Elder MD Primary Care Provider, Referring Provider Active Sabra Mcmahon CNM Attending Provider Active Team Status: Inactive Member Role Status Dates Dr. Nahum Elder MD Primary Care Provider, Referring Provider Active Dr. Mary Sullivan DC Attending Provider Active Team Status: Inactive Member Role Status Dates Dr. Nahum Elder MD Primary Care Provider Active Dr. Mariposa Cleaning MD Attending Provider, Referr ing Provider Active Team Status: Active Member Role Status Dates Dr. Nahum Elder MD Primary Care Provider Active Dr. Mariposa Cleaning MD Admit Provid er, Referring Provider, Other Provider Active Dr. Nicolle Murray DO Attending Provider Activ e Team Status: Active Member Role Status Dates Dr. Nahum Elder MD Primary Care Provider Active Dr. Mariposa Cleaning MD Admit Provid er, Attending Provider, Referring Provider, Other Provider Active Team Status: Inactive Member Role Status Dates Dr. Nahum Elder MD Primary Care Provider Active Dr. Mariposa Cleaning MD Admit Provid er, Attending Provider, Referring Provider Active Team Status: Active Member Role Status Dates Dr. Nahum Elder MD Family Provider Active Dr. Mariposa Cleaning MD Primary Care Provider Acti ve Team Status: Inactive Member Role Status Dates Dr. Mariposa Cleaning MD Primary Care Provider Acti ve Start: September 09, 2024 End: September 09, 2024 Dr. Mariposa Cleaning MD Referring Provider Active Start: September 09, 2024 End: September 09, 2024 Dr. Nicolle Murray DO Attending Provider Activ e Start: September 09, 2024 End: September 09, 2024 Team Status: Inactive Member Role Status Dates Dr. Mariposa Cleaning MD Primary Care Provider Acti ve Start: September 09, 2024 End: September 09, 2024 Dr. Nicolle Murray DO Attending Provider Activ e Start: September 09, 2024 End: September 09, 2024 Dr. Nicolle Murray DO Referring Provider Activ e Start: September 09, 2024 End: September 09, 2024 Team Status: Active Member Role Status Dates Hilda BATEMANC, DISEASE INTERVENTION SPECIALIST-C Primary Care Provider Activ e Team Status: Inactive Member Role Status Dates Dr. Mariposa Cleaning MD Referring Provider Active Start: October 03, 2024 End: October 03, 2024 Dr. Robyn Garza MD Attending Provider Active Start: October 03, 2024 End: October 03, 2024 Hilda BATEMANC, DISEASE INTERVENTION SPECIALIST-C Primary Care Provider Activ e Start: October 03, 2024 End: October 03, 2024 Team Status: Inactive Member Role Status Dates Dr. Mariposa Cleaning MD Referring Provider Active Start: October 07, 2024 End: October 07, 2024 Jossy Umaña CNM Attending Provider Active S tart: October 07, 2024 End: October 07, 2024 Hilda Jackson VSC, DISEASE INTERVENTION SPECIALIST-C Primary Care Provider Activ e Start: October 07, 2024 End: October 07, 2024 Team Status: Inactive Member Role Status Dates Dr. Mariposa Cleaning MD Attending Provider Active Start: November 03, 2024 End: November 03, 2024 Dr. Mariposa Cleaning MD Referring Provider Active Start: November 03, 2024 End: November 03, 2024 Hilda CERVANTES, DISEASE INTERVENTION SPECIALIST-C Primary Care Provider Activ e Start: November 03, 2024 End: November 03, 2024 Team Status: Inactive Member Role Status Dates Hilda BATEMANC, DISEASE INTERVENTION SPECIALIST-C Primary Care Provider Activ e Start: November 16, 2024 End: November 16, 2024 Jossy Umaña CNM Attending Provider Active S tart: November 16, 2024 End: November 16, 2024 Jossy Umaña CNM Referring Provider Active S tart: November 16, 2024 End: November 16, 2024 Team Status: Inactive Member Role Status Dates Dr. Mariposa Cleaning MD Referring Provider Active Start: December 01, 2024 End: December 01, 2024 Qian Phelps NP, DISEASE INTERVENTION SPECIALIST-C Attending Provider Active Start: December 01, 2024 End: December 01, 2024 Hilda Jackson VSC, DISEASE INTERVENTION SPECIALIST-C Primary Care Provider Activ e Start: December 01, 2024 End: December 01, 2024 Team Status: Active Member Role/Relationship Status Dates Hilda Jackson VSC, DISEASE INTERVENTION SPECIALIST-C Primary Care Provider Activ e Team Status: Inactive Member Role/Relationship Status Dates Dr. Mariposa Cleaning MD Primary Care Provider Acti ve Start: September 09, 2024 End: September 09, 2024 Dr. Mariposa Cleaning MD Referring Provider Active Start: September 09, 2024 End: September 09, 2024 Dr. Nicolle Murray DO Attending Provider Activ e Start: September 09, 2024 End: September 09, 2024 Team Status: Inactive Member Role/Relationship Status Dates Dr. Mariposa Cleaning MD Primary Care Provider Acti ve Start: September 09, 2024 End: September 09, 2024 Dr. Nicolle Murray DO Attending Provider Activ e Start: September 09, 2024 End: September 09, 2024 Dr. Nicolle Murray DO Referring Provider Activ e Start: September 09, 2024 End: September 09, 2024 Team Status: Inactive Member Role/Relationship Status Dates Dr. Mariposa Cleaning MD Referring Provider Active Start: October 03, 2024 End: October 03, 2024 Dr. Robyn Garza MD Attending Provider Active Start: October 03, 2024 End: October 03, 2024 Hilda CERVANTES, DISEASE INTERVENTION SPECIALIST-C Primary Care Provider Activ e Start: October 03, 2024 End: October 03, 2024 Team Status: Inactive Member Role/Relationship Status Dates Dr. Mariposa Cleaning MD Referring Provider Active Start: October 07, 2024 End: October 07, 2024 Jossy Umaña CNM Attending Provider Active S tart: October 07, 2024 End: October 07, 2024 Hilda CERVANTES, DISEASE INTERVENTION SPECIALIST-C Primary Care Provider Activ e Start: October 07, 2024 End: October 07, 2024 Team Status: Inactive Member Role/Relationship Status Dates Dr. Mariposa Cleaning MD Attending Provider Active Start: November 03, 2024 End: November 03, 2024 Dr. Mariposa Cleaning MD Referring Provider Active Start: November 03, 2024 End: November 03, 2024 Hilda BATEMANC, DISEASE INTERVENTION SPECIALIST-C Primary Care Provider Activ e Start: November 03, 2024 End: November 03, 2024 Team Status: Inactive Member Role/Relationship Status Dates Hilda BATEMANC, DISEASE INTERVENTION SPECIALIST-C Primary Care Provider Activ e Start: November 16, 2024 End: November 16, 2024 Jossy Umaña CNM Attending Provider Active S tart: November 16, 2024 End: November 16, 2024 Jossy Umaña CNM Referring Provider Active S tart: November 16, 2024 End: November 16, 2024 Team Status: Inactive Member Role/Relationship Status Dates Dr. Mariposa Cleaning MD Referring Provider Active Start: December 01, 2024 End: December 01, 2024 Qian Phelps NP, DISEASE INTERVENTION SPECIALIST-C Attending Provider Active Start: December 01, 2024 End: December 01, 2024 Hilda CERVANTES, DISEASE INTERVENTION SPECIALIST-C Primary Care Provider Activ e Start: December 01, 2024 End: December 01, 2024 Team Status: Inactive Member Role/Relationship Status Dates Hilda Jackson VSC, DISEASE INTERVENTION SPECIALIST-C Primary Care Provider Activ e Start: December 26, 2024 End: December 26, 2024 Hilda CERVANTES, DISEASE INTERVENTION SPECIALIST-C Referring Provider Active Start: December 26, 2024 End: December 26, 2024 Jossy Umaña CNM Attending Provider Active S tart: December 26, 2024 End: December 26, 2024 Team Status: Active Member Role/Relationship Status Dates Hilda CERVANTES, DISEASE INTERVENTION SPECIALIST-C Primary Care Provider Activ e Start: December 26, 2024 Qian Phelps NP, DISEASE INTERVENTION SPECIALIST-C Attending Provider Active Start: December 26, 2024 Team Status: Inactive Member Role/Relationship Status Dates Hilda Manuel VSC, DISEASE INTERVENTION SPECIALIST-C Primary Care Provider Activ e Start: December 26, 2024 End: December 26, 2024 Qian Phelps NP, DISEASE INTERVENTION SPECIALIST-C Attending Provider Active Start: December 26, 2024 End: December 26, 2024 INFORMATION SOURCE (unrecogn ized section and content) DATE CREATED AUTHOR 12/31/2024 [facility] FOR RECORDS PERTAINING TO PATIENTS WHO ARE OR HAVE BEEN ENROLLED IN A CHEMICAL DEPENDENCY/SUBSTANCEABUSE PROGRAM, SOME INFORMATION MAY BE OMITTED. This clinical summary was aggregated from multiple sources. Caution should be exercised in using it in the provision of clinical care. This summary normalizes information from multiple sources, and as a consequence, information in this document may materially change the coding, format and clinical context of patient data. In addition, data may be omitted in some cases. CLINICAL DECISIONS SHOULD BE BASED ON THE PRIMARY CLINICAL RECORDS. [facility] [employer] [facility]. provides no warranty or guarantee of the accuracy or completeness of information in this document.
[2025-01-03 07:16] LABS: Glucose GTT-Gestation. Fasting 86 mg/dL (<105)
[2025-01-03 09:37] LABS: Glucose GTT-Gestational 1 Hr 136 mg/dL (<190)
[2025-01-03 10:24] LABS: Glucose GTT-Gestational 2 Hr 124 mg/dL (<165)
[2025-01-03 11:40] LABS: Glucose GTT-Gestational 3 Hr 98 L (<145)
== END | disposition home or self-care (01) ==
LOC: LAB 06:49
PROVIDERS: Advanced Practice Midwife; PCP Nurse Practitioner Family; Referring Provider Obstetrics & Gynecology; Visit Provider Obstetrics & Gynecology
DX: Z13.1 Encounter for screening for diabetes mellitus (principal)
CPT/HCPCS: 36415; 82951; 82952

== ENCOUNTER → 2025-03-08 | Outpatient (CLI) | payer OTHER, SELFPAY | END | disposition home or self-care (01) | LOC: LABSPEC 12:00 | PROVIDERS: PCP Nurse Practitioner Family; Visit Provider Nurse Practitioner Women's Health | DX: Z34.83 Encounter for supervision of other normal pregnancy, third trimester (principal) | CPT/HCPCS: 87081 ==

== ENCOUNTER 2025-04-10 21:24 | Inpatient (IN) | payer OTHER, SELFPAY ==
[2025-04-10] VITALS (25 sets, daily range): BP systolic 116–149; BP diastolic 66–84; PULSE 73–98; RESP 12–16; TEMP 36.3–36.6; O2SAT 97–99; BMI 31.1
[2025-04-10] MEDS: Lactated Ringers 1,000 ML 999 ML IV (21:35)
--- NOTE | 2025-04-10 21:36 | PCM.HP.OB ---
HPI - General General Date of Admission: 04/10/25 HPI Narrative IVETTE FINNEY, is a 34 F who presents @40w6d presents IAL regulra ctx 8 cm dilated Maternal Data Information LEONARDA Calculator Estimated Delivery Date Method Current WG Current Estimate 04/04/25 Ultrasound #1 40w 6d Other Estimates 04/14/25 LMP (Certain) 39w 3d PFSH PFSH Medical History Segmental and somatic dysfunction of cervical region Segmental and somatic dysfunction of sacral region Back pain Segmental and somatic dysfunction of lumbar region Segmental and somatic dysfunction of thoracic region Home Medications ?Medication ?Instructions ?Recorded ?Last Taken ?Type multivitamin no.47-iron fum 27 1 cap PO DAILY 08/26/24 Unknown History mg-folate no.1 1 mg-dha 300 mg capsule (PNV-DHA) Allergy/AdvReac Type Severity Reaction Status Date / Time No Known Allergies Allergy Verified 04/10/25 21:15 Family History Father CAD (coronary artery disease) Surgical History [place] teeth extracted Social History adopted: No household members: significant other and children housing: house number of children: 2 current occupational status: employed 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/hazards: No pets and animals: Yes pets and animals: dog(s) history of recent travel: No sexually active: Yes Smoking Status: Never smoker second hand exposure: No alcohol intake: former details: social- not while substance use type: does not use well-balanced diet: daily or most days caffeine: Yes Type: coffee Number of servings: 1 eating out: rarely or never during the past year weight has: remained stable what type of physical activity do you participate in: other details: [employer] frequency: 1-2 times per week duration: 60-90 minutes/day jayesh/gnosticism: Worship seatbelt use: always do you feel safe at home: Yes 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 Date Name GA/Weeks Outcome Route Bth Weight Infant Gen Labor Lgth Anesthesia Del Locatn Provider FOB 01/24/20 Betsy 39 live - full term 7#14oz Female none [facility] Dr. Tricia Mcgee 10/09/22 Katelynn 39 live - full term 9lbs Female none [facility] Dr. Jean Visit Details Expected Delivery Route/Plan Labor Preferences- CB/BF classes: no labor support person: [employer]ardo labor intervention preferences: [] pain management options preferred:limited cut cord/dad catch: yes : yes PP control planned: discussed discussed possible routes of delivery and associated risks: [] special requests: [] Plans Covid status: [] Flu vaccine: given Tdap vaccine: given Rhogam: na LARC form signed: yes movement and labor precautions reviewed. Problem list reviewed and updated with the most current plan of care details and appropriate orders placed. Relevant counseling for the gestational age provided. Continue routine care and follow up unless otherwise noted in visit notes/problem list details OB Flowsheet Initial Weight: 176 lb Date <del>?</del> EGA Weight BP Urine Prot <del>?</del> Glucose FHR FuHt Pres Dilation <del>?</del> Effaced St Visit Note 09/09/24 <del>?</del> 10w 3d 176 lb 8 oz (+8 oz) 128/77 <del>?</del> 168 <del>?</del> JV- CRL is off by 10 days from LMP. new LEONARDA given. declines nipt. has complaint of hemorrhoids. 10/07/24 <del>?</del> 14w 3d 180 lb 4 oz (+4 lb 4 oz) 111/66 Negative <del>?</del> Negative 156 <del>?</del> KW- no vb/cramping. Declines AFP. anatomy US ordered 11/03/24 <del>?</del> 18w 2d 185 lb 2 oz (+9 lb 2 oz) 120/57 Negative <del>?</del> Negative 150 <del>?</del> SM- no vb cramping 12/01/24 <del>?</del> 22w 2d 192 lb (+16 lb) 120/60 Negative <del>?</del> Negative 152 <del>?</del> MH-No VB. Good FM. Denies concerns 12/26/24 <del>?</del> 25w 6d 195 lb 4 oz (+19 lb 4 oz) 120/72 Negative <del>?</del> Negative 165 26 <del>?</del> KW- no vb/lof/ctx. good fm. glucose today. 01/24/25 <del>?</del> 30w 0d 200 lb 2 oz (+24 lb 2 oz) 108/63 Negative <del>?</del> Negative 155 31 <del>?</del> JV- pt has active hemorrhoids. using suppositories from Dr. Garza. on exam there are no thrombosed hemorrhoids or infection. just 5 or 6 dilated blood vessels. no active bleeding. continue the suppositories and other OTC remedies for now. got tdap today 02/08/25 <del>?</del> 32w 1d 207 lb 1 oz (+31 lb 1 oz) 128/68 Trace <del>?</del> Negative 165 33 <del>?</del> MH-No vB, LOF. Good FM. Larc. No concerns 02/21/25 <del>?</del> 34w 0d 209 lb 5 oz (+33 lb 5 oz) 108/72 Negative <del>?</del> Negative 135 35 <del>?</del> KW- no vb/lof/ctx. good fm. will get flu shot through hospital. GBS next visit. 03/08/25 <del>?</del> 36w 1d 212 lb 6 oz (+36 lb 6 oz) 115/78 Negative <del>?</del> Negative 147 37 Cephalic 0 <del>?</del> MH-No VB, LOF. Good FM:did have a fall yesterday but not down on abdomen. NO bleeding. Baby has been very active. GBS 03/14/25 <del>?</del> 37w 0d 213 lb 3 oz (+37 lb 3 oz) 110/68 Negative <del>?</del> Negative 150 37 Cephalic 1 <del>?</del> 10 -3 JV-no lof, vaginal bleeding, or dec fm. Has her plan with her and has marked doc only. 03/22/25 <del>?</del> 38w 1d 215 lb 7 oz (+39 lb 7 oz) 122/72 Negative <del>?</del> Negative 155 38 Cephalic 1 <del>?</del> SM- no vb of good fm n [place] ctx 03/29/25 <del>?</del> 39w 1d 215 lb 8 oz (+39 lb 8 oz) 122/75 Trace <del>?</del> Negative 145 39 Cephalic 2 <del>?</del> SM- no vb lof good fm no regular ctx 04/05/25 <del>?</del> 40w 1d 217 lb (+41 lb) 135/83 Negative <del>?</del> Negative 140 38 Cephalic 2 <del>?</del> 70 -2 JV- CHANDRA 17, no complaints. pt prefers end of 41 weeks for IOL. NST FHR Rate Baby A Baseline: 140 Decelerations:: None ROS Constitutional Constitutional: Reports systems reviewed and no addt'l complaints, except as documented ENT HEENT: Reports systems reviewed and no addt'l complaints, except as documented Cardiovascular Cardiovascular: Reports systems reviewed and no addt'l complaints, except as documented Respiratory/Chest Respiratory/Chest: Reports systems reviewed and no addt'l complaints, except as documented Gastrointestinal Gastrointestinal: Reports systems reviewed and no addt'l complaints, except as documented and nausea; Denies abdominal pain Genitourinary Genitourinary: Reports systems reviewed and no addt'l complaints, except as documented, contractions Details: present and frequency (regular ) and movement Details: present Musculoskeletal Musculoskeletal: Reports systems reviewed and no addt'l complaints, except as documented Integumentary Integumentary: Reports as per HPI Neurologic Neurologic: Reports systems reviewed and no addt'l complaints, except as documented Endocrine Endocrinology: Reports systems reviewed and no addt'l complaints, except as documented Vital Signs Vital Signs Vital Signs: 04/10/25 21:10 04/10/25 21:10 04/10/25 21:10 Temperature Temperature Source Temporal Pulse Rate 88 Respiratory Rate Blood Pressure BP Systolic BP Diastolic Pulse Ox 98 04/10/25 21:10 04/10/25 21:10 04/10/25 21:11 Temperature 97.3 F L Temperature Source Pulse Rate Respiratory Rate 14 Blood Pressure 127/82 H BP Systolic 127 BP Diastolic 82 Pulse Ox 04/10/25 21:11 Temperature Temperature Source Pulse Rate 96 Respiratory Rate Blood Pressure BP Systolic BP Diastolic Pulse Ox Weight Weight: 217 lb Body Mass Index (BMI) 31.1 Physical Exam Const alert, oriented x3 and healthy appearing Constitutional Narrative: uncomfortable with contractions HEENT normocephalic and moist oral mucous membranes Head and Scalp: atraumatic Neck full ROM, no lymphadenopathy, supple and thyroid normal General: trachea midline Thyroid: thyroid normal Lymph Lymphatic: no lymphadenopathy noted Chest inspection of chest normal Resp normal respiratory effort Cardio regular rate GI soft to palpation and non-tender GI Narrative: gravid Inspection: gravid external exam normal Bimanual Exam - Vag & Uterus: uterus non-tender Manual OB Exam: estimated gestational size appropriate, presentation cephalic, dilated, effaced and station Extremity normal to inspection General Extremity: Negative for edema Skin no rashes or lesions noted Neuro deep tendon reflexes 2+ bilaterally Motor Exam: strength 5/5 throughout and clonus absent Psych mental status grossly normal Labs Labs Labs: Blood Type O POSITIVE Antibody Screen NEGATIVE Hct, (37-47) 34.1 % L Hgb, (12.0-15.0) 11.2 g/dL L Obstetrics Ultrasound Syphilis Total Ab, (Nonreactive) Nonreactive Rubella IgG Antibody, (Nonreactive) REAC Hep Bs Antigen, (Nonreactive) Nonreactive Hepatitis C Antibody, (Nonreactive) Nonreactive Hepatitis C Ab (EIA), (0.0-0.9) <0.1 s/co ratio Chlamydia DNA (KAITY), (Negative) Negative N.gonorrhoeae DNA (KAITY), (Negative) Negative HIV 1&2 Antibody, (Nonreactive) Nonreactive Glucose 1 Hr 50 gm, (70-140) 138 mg/dL Gest Glucose Tolerance mg/dL Rhogam given: No Assessment & Plan (1) Abnormal glucose affecting : COMMENT: normal 3 hour (2) Hemorrhoids during : QUALIFIERS: Trimester: second trimester Qualified Code(s): O22.42 - Hemorrhoids in , second trimester (3) Supervision of normal : QUALIFIERS: Normal : other normal Trimester: third trimester Qualified Code(s): Z34.83 - Encounter for supervision of other normal , third trimester COMMENT: DOC ONLY. PRR,, LEONARDA 04/04/25, boy Katelynn Santos BF Nate (4) : QUALIFIERS: Weeks of gestation: 40 weeks Qualified Code(s): Z3A.40 - 40 weeks gestation of COMMENT: Neg GBS. declined NIPT & Carrier testing-normal anatomy. 13%-AC 23% (5) Active labor at term: PLAN: Plan Patient presents IAL, plan expectant management for , pitocin/AROM PRN if needed. Pain management: minimal intervention GBS neg. Management of any complications: none [facility] and made any clinically relevant updates.
[2025-04-10 22:02] LABS: Hematocrit 34.9 % (37-47); Hemoglobin 11.8 g/dL (12.0-15.0); Immature Granulocytes Count 0.270 X10^3/uL (0.0-0.0); Mean Corp Hgb Conc 33.8 g/dL (32-36); Mean Corpuscular Volume 87.7 fL (81-99); Mean Platelet Vol. 9.6 fl (6.2-12.0); NRBC Flagged by Analyzer 0 % (0-5); Platelet Count 225 K/mm3 (150-450); RBC Distribution Width CV 13.9 % (11.6-14.6); RBC Distribution Width SD 44.1 fl (35.1-43.9); Red Blood Count 3.98 M/mm3 (4.2-5.4); White Blood Count 13.0 K/mm3 (4.4-11.0)
[2025-04-10] MEDS: Oxytocin 15 Units/NS 250ml 15 UNITS/250 ML IV.SOLN 334 UNITS IV (22:06)
[2025-04-10 22:08] LABS: Syphilis Antibodies Nonreactive (Nonreactive)
--- NOTE | 2025-04-10 22:09 | EX.PCM.OBVAG ---
Assessment & Plan (1) Active labor at term: (2) Abnormal glucose affecting : COMMENT: normal 3 hour (3) Hemorrhoids during : QUALIFIERS: Trimester: second trimester Qualified Code(s): O22.42 - Hemorrhoids in , second trimester (4) Supervision of normal : QUALIFIERS: Normal : other normal Trimester: third trimester Qualified Code(s): Z34.83 - Encounter for supervision of other normal , third trimester COMMENT: DOC ONLY. PRR,, LEONARDA 04/04/25, [facility] Katelynn Meyer, [place] Mcgee (5) : QUALIFIERS: Weeks of gestation: 40 weeks Qualified Code(s): Z3A.40 - 40 weeks gestation of COMMENT: Neg GBS. declined NIPT & Carrier testing-normal anatomy. 13%-AC 23% (6) Vaginal delivery: COMMENT: SM IAL chano hagen 40 Maternal Data Information LEONARDA Calculator Estimated Delivery Date Method Current WG Current Estimate 04/04/25 Ultrasound #1 40w 6d Other Estimates 04/14/25 LMP (Certain) 39w 3d Vaginal Delivery Maternal Presentation Maternal Presentation: see assessment and plan Vaginal Delivery Information Procedure Performed: Spontaneous Vaginal Delivery Surgeon/Practitioner: Mariposa Cleaning Date of Procedure: 04/10/25 Pre-Procedure Diagnosis: see assessment and plan Post-Procedure Diagnosis: same Type of anesthesia: None Findings Description of procedure: Patient began pushing and delivered the head in the ALEJANDRINA presentation. The head was delivered atraumatically . The anterior and posterior shoulders delivered without complication followed by the rest of the infant and the infant was placed on the maternal abdomen. Delayed cord clamping was employed for approximately 60 seconds. Cord was clamped and cut and gentle traction was applied to the cord and the placenta delivered spontaneously immediately following it was noted to be intact with three-vessel cord. The perineum and vagina were inspected and noted to have no laceration. EBL was 100 cc. Patient and infant tolerated delivery well. Presentation: Vertex Placental Delivery Description: Spontaneous Specimen collected: Yes Description of specimen(s) removed: placenta Analytical Lead special technical operations officer: No Post Vaginal Deli Medications given after delivery: Other (pitocin) Complication Complications: No Multi Select Codes Urinary/Genital Urinary/Genital CPT Codes: 13179 Vaginal Delivery global pkg
--- NOTE | 2025-04-10 22:10 | DCINST_ITS ---
Discharge Instructions
--- NOTE | 2025-04-10 22:10 | PCM.DC ---
Discharge Instructions DC O2, CPAP, BIPAP needs Home O2 Discharge instructions: No Dressing / Incision Discharge Activity: Return to Normal Activity, May Not Drive (while taking narcotic pain medications.) and May Shower May resume sexual activity in: 4-6 weeks Dressing / Incision Call your doctor if your incision/area has: Continuous Slow Oozing, Sudden Increased Bleeding, Increased Pain/ Swelling, Increased Redness and Foul Smelling Discharge Follow Up Care Please Follow Up With: Mariposa Cleaning MD When: Call [phone] to make an appointment with your doctor in 6 weeks. If you had elevated blood pressure or 4th degree laceration, you will need to be seen in 2 weeks. Test Results: Test results from this visit will be discussed in further detail at your follow-up appointment, if applicable. Discharge Plan Admission Admit Date/Time: 04/10/25 21:24 Attending Provider: Mariposa Cleaning Primary Care Provider: Hilda Jackson Discharge Orders/Prescriptions Prescriptions: No Action PNV-DHA 27 mg iron-1 mg -300 mg capsule 1 cap PO DAILY Referrals / Follow Up: Hilda Jackson, PRINCIPAL JAVA DEVELOPER-C [Primary Care Provider, Family Practice]
[2025-04-10] MEDS: Oxytocin 15 Units/NS 250ml 15 UNITS/250 ML IV.SOLN 83 UNITS IV (22:45)
[2025-04-11] VITALS (7 sets, daily range): BP systolic 112–122; BP diastolic 67–86; PULSE 72–86; RESP 14–16; TEMP 36.4–36.7; O2SAT 98–99
--- NOTE | 2025-04-11 08:21 | PCM.PN.OB ---
Subjective Subjective Patient doing well without complaints. Tolerating PO. Ambulating and voiding without difficulty. Feeding well. Denies chest pain, shortness of breath, calf pain/swelling, fevers, chills, lightheadedness. Objective Data Objective Data Vital Signs: Vital Signs Temp Pulse Resp BP Pulse Ox O2 Del Method 97.8 F 72 14 113/73 98 Room Air 04/11/25 04:50 04/11/25 04:50 04/11/25 04:50 04/11/25 04:50 04/11/25 04:50 04/11/25 04:50 Oxygen Delivery Method Room Air Weight: 217 lb Body Mass Index (BMI) 31.1 Intake & Output: Intake and Output for Last 24 Hours 04/09/25 04/10/25 04/11/25 22:59 23:59 23:59 Intake Total 733.25 / 733.25 250 / 250 Output Total 100 / 100 300 / 300 Balance 633.25 / 633.25 -50 / -50 Lab / Micro Data 04/10/25 21:35 Labs: Laboratory Results - last 24 hr 04/10/25 21:35: WBC 13.0 H, RBC 3.98 L, Hgb 11.8 L, Hct 34.9 L, MCV 87.7, MCH 29.6, MCHC 33.8, RDW Std Deviation 44.1 H, RDW Coeff of Alisha 13.9, Plt Count 225, MPV 9.6, Immature Gran % (Auto) 2.100 H, Neut % (Auto) 69.5, Lymph % (Auto) 19.1, Monona % (Auto) 8.1, Eos % (Auto) 0.8, Baso % (Auto) 0.4, Absolute Neuts (auto) 9.1 H, Absolute Lymphs (auto) 2.48, Nucleated RBC % 0, Syphilis Total Ab Nonreactive, Blood Type O POSITIVE, Antibody Screen NEGATIVE ROS Constitutional Constitutional: Denies chills, fatigue, fever(s), poor appetite or weakness Eyes Eyes: Denies blurry vision, change in vision, seeing flashes or spots in vision ENT HEENT: Denies dizziness, headache(s), loss taste/smell or sore throat Cardiovascular Cardiovascular: Denies chest pain, dizziness, dyspnea, irregular heart rhythm, palpitations or rapid heart rate Respiratory/Chest Respiratory/Chest: Denies chest tightness, cough, dyspnea or breast pain Gastrointestinal Gastrointestinal: Denies abdominal pain, constipation or vomiting Genitourinary Genitourinary: Denies dysuria or flank pain Musculoskeletal Musculoskeletal: Denies difficulty walking, joint pain, limited range of motion or numbness Neurologic Neurologic: Denies abnormal movements, abnormal speech, dizziness, numbness, seizure-like activity or syncope Psychiatric Psychiatric: Denies anxiety, behavioral changes, change in appetite, confusion, depression or suicidal thoughts Physical Exam Const alert, oriented x3 and no apparent distress General Appearance: cooperative and comfortable Resp normal respiratory effort Cardio regular rate GI normal to inspection, nondistended, normoactive bowel sounds GI Narrative: uterus is firm below umbilicus Palpation: soft Back/Spine no CVA tenderness and thoraco-lumbar ROM normal Extremity normal to inspection, no clubbing, cyanosis or edema, no calf tenderness and no pedal edema Psych mental status grossly normal, thought process normal, cooperative, affect normal, speech normal, activity/motor behavior normal, denies homicidal ideation and denies suicidal ideation Assessment & Plan (1) Vaginal delivery: COMMENT: ZUHAIR MALDONADO boy hieu 40 PLAN: s/p BRIGID PPD # 1 1. routine post delivery care 2. breast feeding- support given 3. rh positive 4. rubella immune
[2025-04-11] MEDS: SELF ADMINISTRATION OF MEDS 1 EACH NOTE (11:09)
[2025-04-12 02:00] VITALS: BP 113/76; PULSE 60; RESP 16; TEMP 36.2; O2SAT 98
[2025-04-12 07:57] VITALS: BP 122/88; PULSE 67; RESP 17; TEMP 36.7
--- NOTE | 2025-04-12 08:05 | PCM.PN.OB ---
Subjective Subjective Patient doing well without complaints. Tolerating PO. Ambulating and voiding without difficulty. feeding well. Denies chest pain, shortness of breath, calf pain/swelling, fevers, chills, lightheadedness. Objective Data Objective Data Vital Signs: Vital Signs Temp Pulse Resp BP Pulse Ox O2 Del Method 98.1 F 67 17 122/88 H 98 Room Air 04/12/25 07:57 04/12/25 07:57 04/12/25 07:57 04/12/25 07:57 04/12/25 02:00 04/12/25 07:57 Oxygen Delivery Method Room Air Weight: 217 lb Body Mass Index (BMI) 31.1 Intake & Output: Intake and Output for Last 24 Hours 04/10/25 04/11/25 04/12/25 23:59 23:59 23:59 Intake Total 733.25 / 733.25 250 / 250 Output Total 100 / 100 300 / 300 Balance 633.25 / 633.25 -50 / -50 Lab / Micro Data 04/10/25 21:35 ROS Constitutional Constitutional: Reports systems reviewed and no addt'l complaints, except as documented Cardiovascular Cardiovascular: Reports systems reviewed and no addt'l complaints, except as documented Respiratory/Chest Respiratory/Chest: Reports systems reviewed and no addt'l complaints, except as documented Gastrointestinal Gastrointestinal: Reports systems reviewed and no addt'l complaints, except as documented Physical Exam Const alert, oriented x3 and no apparent distress HEENT Head and Scalp: atraumatic Resp normal respiratory effort GI soft to palpation and non-tender Bimanual Exam - Vag & Uterus: uterus non-tender Uterus Palpation: uterus fundus firm (below Umbilicus) Assessment & Plan (1) Vaginal delivery: COMMENT: SM IAL boy hieu 40 PLAN: Plan s/p PPD # 2 1. routine post delivery care 2. breast feeding- support given 3. rh positive 4. rubella immune
--- NOTE | 2025-04-13 10:26 | CASEMGMT ---
Social Work Assessment Labor and Delivery Unit Patient Address: [address] [place] [address] [place] [address] Phone number: [phone] Date of Referral: 04/11/25 Time of Referral:? 134 Referred By: Dr. Murray Date of Intervention: ?04/12/25? Time of Intervention:? 1230 Reason for Referral:? FOB problems with drugs or alcohol Sw completed chart review and acknowledges social work consult. Sw presented to bedside and introduced self to mother of baby, KATHY- Lexus and father of baby, FOB- Everardo Menard. Sw explained reason for sw involvement and completed psychosocial assessment. History obtained from: medical records, MOB and KATYA Household composition: Currently residing in the home is KATYA CHAVEZ, their two older children: Betsy (5) and Katelynn (2). baby to be included in household when ready for discharge. Parents deny any household problems stating home is safe and secure. Patient's parent/guardian status:? ?KATHY states that she and KATYA went to high school together but did not start dating until they had both graduated and met each other again while in college. They have been together for 7.5 years now and baby is third child together. No concerns reported of domestic violence or intimate partner violence. Medical History: KATHY is 34 year old female who is 4, para 2- now 3 following labor and delivery of . KATHY received routine care with [facility] throughout . KATHY presented to hospital on 04/10/25 and delivered baby via vaginal delivery at 40 weeks gestation. Baby boy named Milton, was born weighing 8lbs 9oz and had apgars of 8 and 9 at one and five minutes of life, respectfully. KATHY is breast feeding and baby will be followed by Dr. Cadena for pediatric care. Educational Status:? MOB and KATYA both graduated from high school and MOB obtained her BSN and FOGabrielle obtained some college education but no degree. No problems with reading, learning or comprehension. Financial Status: Both parents are gainfully employed outside of the home. 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 On Thursday he is starting a new job, that will provide a better schedule with better pay and will provide him the opportunity to go back to school. Supplies:??All necessary baby supplies obtained, including: car seat, safe sleep space, clothes, diapers and wipes. Childcare/Caregiver(s):?KATHY and KATYA will be the primary caregivers to baby along with grandparents when both parents are working Transportation:??Both parents have their drivers license and reliable means of transportation. Programs/Agencies Involved: ?Parents are over income for linkage to community resources that provide financial assistance. ?? Children Services/Legal Issues:??? No history of children service involvement, no issues or concerns warranting referral at this time. Behavioral Health Issues: ??Mental Health History:?KATYA states that he has normal anxiety related to every day stressors, especially given life after his accident. KATYA reports that he has never been diagnosed with a mental health diagnosis and is not prescribed any medications MOB denies mental health history. ?? Substance Use History: KATYA states that his father struggled with addiction, and ultimately this led to KATYA following in his footsteps. FOB states that he struggled with addiction before he dated MOB. FOB states that he abused pills in college, and got help right before he started dating MOB. FOB states that he has not abused pills since then. MOB denies substance use prior to and during . Sofía discussed importance of using healthy and safe coping skills and not seeking comfort with drugs and alcohol. ?? Family History: KATYA states that his brother also struggles with substance use. ? Drug Screens: ?No drug screens observed while completing chart review. Family/Social Stressors:? MOB states that at this time her biggest stressor is that baby continues to require admission due to his hyperbilirubinemia. MOB states that although she is eligible for discharge, baby is still going to need to be admitted. Sofía empathized with MOB and expressed understanding. Sw encouraged MOB to give herself celia, and encouraged MOB to take time outside of the hospital, even for a little bit of time today. MOB stated that she has thought about doing that, even if it is just to go and grab a coffee or something. Support Systems: MOB states that both grandma's are their biggest supports. Depression/Shaken Baby/Safe Sleeping:?Sw educated parents on signs and symptoms of baby blues and mood and anxiety disorders to be mindful of during this depression. Sw explained that due to this journey not starting off as MOB had expected it may impact her mental health. MOB stated she understands what red flags to be on the look out for. FOB states that he knows how to read MOB and when she is struggling. FOB states that he also knows how to support MOB if she is having a hard time. Sw educated parents on shaken baby prevention and ABCs of safe sleep, parents express understanding. ASSESSMENT:? MOB and baby admitted following labor and delivery. Baby is struggling with hyperbilirubinemia and may continue to need to be admitted. Sw consult due to FOB history of substance use. This was discussed with FOB during sw assessment. FOB was open and communicative with sw about his substance use history, as well as his family history. MOB denies mental health and substance use history. Both parents were welcoming of sw. MOB was sitting on bed and FOB was sitting on couch with their younger daughter. Baby was in bassinet under bili lights. Parents engaged in conversation pleasantly. Initially FOB appeared to be disengaged from conversation, but then opened up as time went on. At one point baby started to cry, and FOB got up and was attentive to baby, picked him up, held him and shushed him and then handed him to MOB so that she could feed him. Both parents were observed to be attentive and loving towards baby. Both parents have supports in place and have obtained all necessary baby items. PLAN:? No other services requested or indicated. MOB and baby to be discharged when medically ready. Parents were provided literature regarding: signs and symptoms of baby blues and mood and anxiety disorders, Help Me Grow, shaken baby prevention, ABCs of safe sleep and a list of county resources that are available for them should any needs present themselves. Alejandra Mitchell, MANAGER MERCHANDISING, CPA T[employer]
--- NOTE | 2025-04-18 13:48 | NURSING ---
F/up call performed-- pt. denies s+s of complications. going well, having lots of wet and dirty diapers. Denies questions or concerns. Encouragement and support given.
== END 2025-04-12 11:10 | disposition home or self-care (01) | DRG 806 ==
LOC: WPOUT 21:25 → WP 21:25
PROVIDERS: Admitting Provider Obstetrics & Gynecology; PCP Nurse Practitioner Family; Referring Provider Obstetrics & Gynecology; Visit Provider Obstetrics & Gynecology
DX: O48.0 Post-term pregnancy (principal); Z37.0 Single live birth; O22.43 Hemorrhoids in pregnancy, third trimester; O99.814 Abnormal glucose complicating childbirth; Z3A.40 40 weeks gestation of pregnancy
CPT/HCPCS: 59025; 59050; 85025; 86780; 86850; 86900; 86901; 99221; G0378